=== PATIENT | male | born 1985 | race Caucasian/White ===

== ENCOUNTER 2024-12-24 20:14 | Emergency (ER) | payer BC, MEDICAID, SELFPAY ==
[2024-12-24 20:18] VITALS: BP 135/81; PULSE 117; RESP 16; TEMP 36.6; O2SAT 94; BMI 27.8
--- NOTE | 2024-12-24 20:51 | W.ED.ALCOHOL ---
HPI - Alcohol General: Chief Complaint: Nausea/Vomiting/Diarrhea Stated Complaint: n/v [facility] detox Time Seen by Provider: 12/24/24 20:42 History of Present Illness: This patient is a 39-year-old white male who presents to the emergency department wanting alcohol detox. Patient has been drinking today. His last drink was a couple of hours ago. He is not suicidal or homicidal. Evidently he is new to the community and was not sure where to go. Related Data Allergies Allergy/AdvReac Type Severity Reaction Status Date / Time azithromycin Allergy ADR-Chest Verified 12/24/24 20:24 Pain Review of Systems General: Reports: 10 or more systems reviewed and unremarkable except in HPI and below Physical Exam Const: COMMON NORMALS: no acute distress, patient oriented x3 and no limitations GENERAL APPEARANCE: cooperative and comfortable HENMT: COMMON NORMALS: normocephalic, atraumatic, Normal nasal mucous membranes and turbinates present, moist oral mucous membranes and oropharynx normal HEAD & SCALP: normal to inspection, normocephalic and atraumatic FACE & SINUS: normal facial exam NOSE: Normal nasal mucous membranes and turbinates present Eye: COMMON NORMALS: Equal, round and reactive pupils present, EOMs intact bilaterally and conjunctivae normal GENERAL EYE: appearance normal, both eyes and all related structures CONJUNCTIVA: Yes conjunctivae normal PUPIL: Yes Equal, round and reactive pupils present Neck/C-Spine: COMMON NORMALS: supple and no JVD Chest: COMMONS NORMALS: normal inspection of the chest Resp: COMMON NORMALS: normal respiratory effort and clear to auscultation bilaterally AUSCULTATION: clear to auscultation bilaterally Cardio: COMMON NORMALS: no JVD, regular rate, regular rhythm, No gallops present (Cardio), No murmurs present (Cardio) and No rub (Cardio) RATE: regular rate RHYTHM: regular rhythm GI: COMMON NORMALS: Normal to inspection, nondistended, normoactive bowel sounds present, Soft to palpation and non-tender AUSCULTATION: Yes normoactive bowel sounds PALPATION: Yes Soft to palpation : COMMON NORMALS: Yes no CVA tenderness BLADDER/KIDNEY EXAM: Yes no CVA tenderness Back/Pelvis: COMMON NORMALS: no CVA tenderness and thoracic and lumbar spine normal to inspection Extremity: COMMON NORMALS: normal to inspection Neuro: COMMON NORMALS: patient oriented x3 and CN's II-XII intact bilaterally Psych: COMMON NORMALS: mental status grossly normal, Normal thought process present and cooperative THOUGHT PROCESS: Normal thought process present Skin: COMMON NORMALS: no rashes or lesions noted, turgor normal and no jaundice GENERAL SKIN EXAM: no rashes or lesions noted and turgor normal Course Vital Signs: Vital signs: Vital Signs Temperature 97.8 F 12/24/24 20:18 Pulse Rate 117 H 12/24/24 20:18 Respiratory Rate 16 12/24/24 20:18 Blood Pressure 135/81 12/24/24 20:18 Pulse Oximetry 94 12/24/24 20:18 Oxygen Delivery Me thod Room Air 12/24/24 20:18 MDM - Alcohol Medical Decision Making Patient does not meet criteria for detox. He just had a drink 2 hours ago. He is not suicidal or homicidal so he does not need psychiatric care. We did refer him to [facility]. He can contact that organization tomorrow. He was discharged with friends in stable condition. No radiology studies performed this visit Discharge Plan Discharge Patient Disposition: Home Clinical Impression: Alcoholism Condition: Stable Discharge Orders: Discharge ED (Routine); Ordered 12/24/24 Ordered By: Danyel Clemente Patient Instructions: Alcoholism Activity Restrictions/Additional Instructions: Contact [facility] [phone] Print Language: Telugu Coding Level of Care Code ED Experimental Electronics Developer for Avi Gutierrez
[2024-12-24 20:56] VITALS: BP 133/87; PULSE 103; O2SAT 94
== END 2024-12-24 20:59 | disposition home or self-care (01) ==
PROVIDERS: Emergency Provider Emergency Medicine
DX: F10.20 Alcohol dependence, uncomplicated (principal)
CPT/HCPCS: 99281

== ENCOUNTER 2024-12-27 15:25 | Emergency (ER) | payer BC, MEDICAID, SELFPAY ==
[2024-12-27] VITALS (17 sets, daily range): BP systolic 112–141; BP diastolic 64–83; PULSE 98–112; RESP 16; TEMP 36.4; O2SAT 90–98; BMI 27.8
--- NOTE | 2024-12-27 15:40 | W.ED.ALCOHOL ---
HPI - Alcohol General: Chief Complaint: Alcohol Stated Complaint: ETOH Time Seen by Provider: 12/27/24 15:35 History of Present Illness: 39-year-old male brought in via EMS. Patient was staying at the [facility] where EMS was called because the manager case found him in his room with 5 750 mL empty bottles of vodka. Patient does not provide much information. He asked for some Ativan and was extent of his communication. Related Data Home Medications ?Medication ?Instructions ?Recorded ?Confirmed No Known Home Medications 12/27/24 12/27/24 Allergies Allergy/AdvReac Type Severity Reaction Status Date / Time azithromycin Allergy ADR-Chest Verified 12/24/24 20:24 Pain Review of Systems General: Reports: ROS unobtainable due to medical condition and ROS unobtainable due to mental status Physical Exam Const: GENERAL APPEARANCE: disheveled and odor of alcohol detected OTHER: Intoxication Resp: COMMON NORMALS: normal respiratory effort and clear to auscultation bilaterally AUSCULTATION: clear to auscultation bilaterally Cardio: COMMON NORMALS: regular rhythm RATE: tachycardic RHYTHM: regular rhythm Neuro: OTHER: Consistent with intoxication Psych: APPEARANCE: Yes unkempt and Yes disheveled SPEECH: Yes slurred Skin: COMMON NORMALS: no rashes or lesions noted GENERAL SKIN EXAM: no rashes or lesions noted Course Vital Signs: Vital signs: Vital Signs Temperature 97.5 F L 12/27/24 15:27 Pulse Rate 104 H 12/27/24 16:45 Respiratory Rate 16 12/27/24 15:27 Blood Pressure 130/72 12/27/24 17:30 Pulse Oximetry 94 12/27/24 17:35 Oxygen Delivery Me thod Room Air 12/27/24 16:25 MDM - Alcohol Medical Decision Making Patient diagnostics were reviewed. He does have extremely high alcohol level 390 however he admits to drinking a pint a day and I suspect his baseline is in the 200s. He is able to answer all questions appropriately. He will be discharged as requested. Lab Data 12/27/24 15:43 12/27/24 16:12 Laboratory Results WBC 8.20 10^3/uL (3.29-11.43) 12/27/24 15:43 RBC 5.82 10^6/uL (3.85-5.65) H 12/27/24 15:43 Hgb 17.70 g/dL (11.27-16.99) H 12/27/24 15:43 Hct 51.1 % (37-53) 12/27/24 15:43 MCV 87.8 fl (82-101) 12/27/24 15:43 MCH 30.4 pg (27-33) 12/27/24 15:43 MCHC 34.6 g/dL (30-55) 12/27/24 15:43 RDW 12.2 % (12.1-15.1) 12/27/24 15:43 Plt Count 260 10^3/cmm (157-399) 12/27/24 15:43 MPV 9.2 fL (7.4-10.4) 12/27/24 15:43 Neut % (Auto) 62.8 % 12/27/24 15:43 Lymph % (Auto) 30.1 % 12/27/24 15:43 Gonzales % (Auto) 5.5 % 12/27/24 15:43 Eos % (Auto) 0.1 % 12/27/24 15:43 Baso % (Auto) 1.3 % 12/27/24 15:43 Neut # (Auto) 5.14 10^3/uL (1.8-7.7) 12/27/24 15:43 Lymph # (Auto) 2.5 10^3/uL (0.8-4.8) 12/27/24 15:43 Gonzales # (Auto) 0.5 10^3/uL (0.2-0.9) 12/27/24 15:43 Eos # (Auto) 0.0 10^3/uL (0.0-0.8) 12/27/24 15:43 Baso # (Auto) 0.1 10^3/uL (0.0-0.1) 12/27/24 15:43 Nucleated RBC % (auto) 0 % 12/27/24 15:43 Nucleated RBCs # 0.0 /100WBC 12/27/24 15:43 Sodium 134 mmol/L (136-145) L 12/27/24 16:12 Potassium 4.0 mmol/L (3.5-5.1) 12/27/24 16:12 Chloride 92 mmol/L (98-107) L 12/27/24 16:12 Carbon Dioxide 22 mmol/L (22-29) 12/27/24 16:12 Anion Gap 24.0 (5-19) H 12/27/24 16:12 BUN 15 mg/dL (6-20) 12/27/24 16:12 Creatinine 0.6 mg/dL (0.7-1.2) L 12/27/24 16:12 GFR Calculation 151.6 mL/min (90-130) H 12/27/24 16:12 Glucose 90 mg/dL (65-115) 12/27/24 16:12 Calculated Osmolality 278 mOsm/kg (285-295) L 12/27/24 16:12 Calcium 7.9 mg/dL (8.5-10.5) L 12/27/24 16:12 Total Bilirubin 0.7 mg/dL (0.15-1.2) 12/27/24 16:12 AST 107 U/L (0-40) H 12/27/24 16:12 ALT 145 U/L (0-41) H 12/27/24 16:12 Alkaline Phosphatase 69 U/L (40-130) 12/27/24 16:12 Total Protein 6.2 g/dL (6.6-8.7) L 12/27/24 16:12 Albumin 4.2 g/dL (3.5-5.2) 12/27/24 16:12 Globulin 2.0 g/dL (1.3-4.6) 12/27/24 16:12 Urine Color Yellow (Yellow) 12/27/24 16:28 Urine Appearance Clear (CLEAR) 12/27/24 16:28 Urine pH 6.0 (5-7) 12/27/24 16:28 Ur Specific [place] 1.023 (1.005-1.030) 12/27/24 16:28 Urine Protein 2+ (Negative) A 12/27/24 16:28 Urine Glucose (UA) Negative (Normal) 12/27/24 16: Urine Ketones 3+ (Negative) H 12/27/24 16:28 Urine Blood 1+ (Negative) A 12/27/24 16:28 Urine Nitrate Negative (Negative) 12/27/24 16: Urine Bilirubin Negative (Negative) 12/27/24 16: Urine Urobilinogen 1.0 mg/dL (Negative) 12/27/24 16:28 Ur Leukocyte Esterase Negative (Negative) 12/27/24 16:28 Urine RBC 0-2 /hpf (0-2) 12/27/24 16:28 Urine WBC 0-5 /hpf (0-5) 12/27/24 16:28 Ur Squamous Epith Cells 0-5 /hpf (0-5) 12/27/24 16:28 Amorphous Sediment Not Reportable 12/27/24 16:28 Urine Bacteria None seen /hpf (NONE) 12/27/24 16:28 Hyaline Casts 0.81 /lpf 12/27/24 16:28 Salicylates < 0.3 mg/dL (3-10) L 12/27/24 16:12 Urine Opiates Screen Negative ng/mL (Negative) 12/27/24 16:28 Acetaminophen < 5.0 ug/mL (10-30) L 12/27/24 16:12 Ur Barbiturates Screen Negative ng/mL (Negative) 12/27/24 16:28 Ur Phencyclidine Scrn Negative ng/mL (Negative) 12/27/24 16:28 Ur Amphetamines Screen Negative ng/mL (Negative) 12/27/24 16:28 U Benzodiazepines Scrn Negative ng/mL (Negative) 12/27/24 16:28 Urine Cocaine Screen Negative ng/mL (Negative) 12/27/24 16:28 U Marijuana (THC) Screen Positive ng/mL (Negative) H 12/27/24 16:28 Ethyl Alcohol 390 mg/dL (0-10) H* 12/27/24 16:12 No radiology studies performed this visit Discharge Plan Discharge Patient Disposition: Home Clinical Impression: Alcoholism, Alcoholic intoxication Condition: Stable Prescriptions: No Action No Known Home Medications Discharge Orders: Discharge ED (Routine); Ordered 12/27/24 Ordered By: Akbar Castilol Patient Instructions: Alcohol Intoxication (ED), Alcohol Dependence (ED), Opioid Safety, Pain Management Activity Restrictions/Additional Instructions: Please follow-up with your primary care provider as needed. Please consider getting help if you decide you would like to stop drinking. Print Language: Swedish Coding Level of Care Code ED Manager [employer] for Avi Gutierrez
[2024-12-27] MEDS: sodium chloride 0.9% 1,000 ML 999 ML IV (15:46)
[2024-12-27 15:52] LABS: Basophils # 0.1 10^3/uL (0.0-0.1); Basophils % 1.3 %; Eosinophils % 0.1 %; Hematocrit 51.1 % (37-53); Lymphocytes # 2.5 10^3/uL (0.8-4.8); Lymphocytes % 30.1 %; Mean Corpuscular HGB Conc 34.6 g/dL (30-55); Mean Corpuscular Hemoglobin 30.4 pg (27-33); Mean Corpuscular Volume 87.8 fl (82-101); Mean Platelet Volume 9.2 fL (7.4-10.4); Monocytes # 0.5 10^3/uL (0.2-0.9); Monocytes % 5.5 %; Neutrophils # 5.14 10^3/uL (1.8-7.7); Neutrophils % 62.8 %; Nucleated Red Blood Cells % 0 %; Platelet Count 260 10^3/cmm (157-399); Red Blood Count 5.82 10^6/uL (3.85-5.65); Red Cell Distribution Width 12.2 % (12.1-15.1)
[2024-12-27 16:33] LABS: Alanine Aminotransferase 145 U/L (0-41); Albumin Level 4.2 g/dL (3.5-5.2); Alkaline Phosphatase 69 U/L (40-130); Aspartate Amino Transferase 107 U/L (0-40); Blood Urea Nitrogen 15 mg/dL (6-20); Calcium 7.9 mg/dL (8.5-10.5); Carbon Dioxide 22 mmol/L (22-29); Chloride 92 mmol/L (98-107); Creatinine Clr Calc Pharmacy 194.2389; Glomerular Filtration Rate 151.6 mL/min (90-130); Glucose 90 mg/dL (65-115); Osmolality Calculated 278 mOsm/kg (285-295); Sodium 134 mmol/L (136-145); Total Bilirubin 0.7 mg/dL (0.15-1.2); Total Protein 6.2 g/dL (6.6-8.7)
[2024-12-27 16:34] LABS: Acetaminophen < 5.0 ug/mL (10-30); Salicylate < 0.3 mg/dL (3-10)
[2024-12-27 16:35] LABS: Alcohol Level 390 mg/dL (0-10)
[2024-12-27 16:45] LABS: Bilirubin Urine Negative (Negative); Blood Urine 1+ (Negative); Glucose Urine UA Negative (Normal); Ketones Urine 3+ (Negative); Leukocyte Esterase Urine Negative (Negative); Nitrate Urine Negative (Negative); Protein Urine 2+ (Negative); Specific Gravity, Urine 1.023 (1.005-1.030); Urine Appearance Clear (CLEAR); Urine Color Yellow (Yellow)
[2024-12-27 16:50] LABS: Add Urine Microscopic? YES; Bacteria Urine None Seen /hpf; Hyaline Casts Urine 0.81 /lpf; RBC Urine 0-2 /hpf (0-2); Squamous Epithelial Cell Urine 0-5 /hpf (0-5); WBC Urine 0-5 /hpf (0-5)
[2024-12-27 16:51] LABS: Amphetamines Screen Urine Negative (Negative); Barbiturates Screen Urine Negative (Negative); Benzodiazepines Screen Urine Negative (Negative); Cocaine Screen Urine Negative (Negative); Opiate Screen Urine Negative (Negative); PCP Screen Urine Negative (Negative); THC Screen Urine Positive (Negative)
== END 2024-12-27 17:56 | disposition home or self-care (01) ==
PROVIDERS: Emergency Provider Student in an Organized Health Care Education/Training Program
DX: F10.229 Alcohol dependence with intoxication, unspecified (principal); Y90.8 Blood alcohol level of 240 mg/100 ml or more
CPT/HCPCS: 36415; 80053; 80306; 80307; 81001; 85025; 99283; J7030

== ENCOUNTER 2024-12-31 16:18 | Inpatient (IN) | payer BC, MEDICAID, SELFPAY ==
[2024-12-31] VITALS (28 sets, daily range): BP systolic 112–150; BP diastolic 60–112; PULSE 86–121; RESP 14–25; TEMP 36.6–36.7; O2SAT 91–99; BMI 25.1
--- NOTE | 2024-12-31 16:23 | ECG_ITS ---
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 Measurements Intervals [place] Rate: 114 P: 52 SC: 154 QRS: 49 QRSD: 96 T: 48 QT: 333 QTc: 460 Interpretive Statements SINUS TACHYCARDIA NONSPECIFIC T-WAVE ABNORMALITY No previous ECG available for comparison Electronically Signed On 01-01-2025 14:51:25 CDT by Jason Leiva M.D. [email or web address]
[2024-12-31 16:34] LABS: Basophils # 0.1 10^3/uL (0.0-0.1); Basophils % 0.8 %; Eosinophils % 0.5 %; Hematocrit 48.4 % (37-53); Lymphocytes # 1.8 10^3/uL (0.8-4.8); Mean Corpuscular HGB Conc 35.3 g/dL (30-55); Mean Corpuscular Hemoglobin 30.4 pg (27-33); Mean Platelet Volume 9.1 fL (7.4-10.4); Monocytes # 0.5 10^3/uL (0.2-0.9); Neutrophils # 5.99 10^3/uL (1.8-7.7); Neutrophils % 71.5 %; Nucleated Red Blood Cells % 0 %; Platelet Count 150 10^3/cmm (157-399); Red Blood Count 5.63 10^6/uL (3.85-5.65); White Blood Count 8.38 10^3/uL (3.29-11.43)
--- NOTE | 2024-12-31 16:42 | W.ED.PSYCHS ---
HPI - Psych General: Chief Complaint: Overdose Stated Complaint: SI attempt Time Seen by Provider: 12/31/24 16:23 History of Present Illness: 39-year-old man with a history of alcohol abuse who presents to the emergency room by ambulance after reportedly taking an overdose of thirty 10 mg propranolol and alcohol. He appears quite intoxicated on presentation. Apparently he is in a hotel here. He is from [place]. He says he just wants to when he gets here. Related Data Home Medications ?Medication ?Instructions ?Recorded ?Confirmed No Known Home Medications 12/27/24 12/27/24 Allergies Allergy/AdvReac Type Severity Reaction Status Date / Time azithromycin Allergy ADR-Chest Verified 12/24/24 20:24 Pain Review of Systems General: Reports: ROS unobtainable due to medical condition and ROS unobtainable due to mental status Physical Exam Narrative: EXAM NARRATIVE: General: Somnolent but arousable Skin: Warm, dry. Head: Normocephalic, atraumatic. Neck: Supple, trachea midline. Eye: Extraocular movements are intact. Ears, nose, mouth and throat: mucosa moist. Cardiovascular: Regular, Normal peripheral perfusion. Respiratory: Lungs are clear to auscultation, respirations are non-labored, breath sounds are equal, Symmetrical chest wall expansion. Gastrointestinal: Soft, Nontender, Non distended Musculoskeletal: Normal ROM, no deformity. Neurological: Somnolent, No focal neurological deficit observed. Psychiatric: Appears intoxicated Course Vital Signs: Vital signs: Vital Signs Temperature 98.1 F 12/31/24 16:37 Pulse Rate 115 H 12/31/24 16:37 Respiratory Rate 20 H 12/31/24 16:37 Blood Pressure 132/98 12/31/24 16:37 Pulse Oximetry 97 12/31/24 16:37 Oxygen Delivery Me thod Room Air 12/31/24 16:37 MDM - Psych Medical Decision Making Differential diagnosis: Patient with reported depression and suicidal ideation. concerns for infection, alcohol intoxication, cardiac issues or other medical problems prior to psychiatric admission. Workup: labwork, ekg ordered to evaluate the pathologies and to clear the patient medically prior to psychiatric admission Lab Review: Laboratory results were reviewed and interpreted by myself the emergency room physician. No leukocytosis. Hemoglobin is 17. BUN/creatinine are 14 and 0.8. Blood alcohol level is 409. Liver enzymes are mildly elevated at 157 and 201. Likely secondary to his alcohol abuse. ABG 7.6 with a sat of 98% on room air. Consultation: I spoke with Dr. Salazar who is on-call for the hospitalist service who agrees to admission to the ICU. Assessment and plan: Intentional overdose of propranolol Alcohol abuse Alcohol intoxication Suicidal ideation -Admission to neuropsychiatric unit for continued evaluation and treatment. - All lab work was reviewed and interpreted personally by myself, the ER physician - Evaluation and treatment of this problem were appropriate in the emergency setting Lab Data 12/31/24 16:00 12/31/24 16:00 Laboratory Results WBC 8.38 10^3/uL (3.29-11.43) 12/31/24 16:00 RBC 5.63 10^6/uL (3.85-5.65) 12/31/24 16:00 Hgb 17.10 g/dL (11.27-16.99) H 12/31/24 16:00 Hct 48.4 % (37-53) 12/31/24 16:00 MCV 86.0 fl (82-101) 12/31/24 16:00 MCH 30.4 pg (27-33) 12/31/24 16:00 MCHC 35.3 g/dL (30-55) 12/31/24 16:00 RDW 12.0 % (12.1-15.1) L 12/31/24 16:00 Plt Count 150 10^3/cmm (157-399) L 12/31/24 16:00 MPV 9.1 fL (7.4-10.4) 12/31/24 16:00 Neut % (Auto) 71.5 % 12/31/24 16:00 Lymph % (Auto) 21.0 % 12/31/24 16:00 Granite % (Auto) 6.0 % 12/31/24 16:00 Eos % (Auto) 0.5 % 12/31/24 16:00 Baso % (Auto) 0.8 % 12/31/24 16:00 Neut # (Auto) 5.99 10^3/uL (1.8-7.7) 12/31/24 16:00 Lymph # (Auto) 1.8 10^3/uL (0.8-4.8) 12/31/24 16:00 Granite # (Auto) 0.5 10^3/uL (0.2-0.9) 12/31/24 16:00 Eos # (Auto) 0.0 10^3/uL (0.0-0.8) 12/31/24 16:00 Baso # (Auto) 0.1 10^3/uL (0.0-0.1) 12/31/24 16:00 Nucleated RBC % (auto) 0 % 12/31/24 16:00 Nucleated RBCs # 0.0 /100WBC 12/31/24 16:00 Specimen Type Arterial 12/31/24 16:46 Sample Site Radial, left 12/31/24 16:46 ABG pH 7.61 (7.35-7.45) H* 12/31/24 16:46 ABG pCO2 28.3 mmHg (35-45) L 12/31/24 16:46 ABG pO2 104.0 mmHg (80.0-100.0) H 12/31/24 16:46 ABG PO2/FiO2 Ratio 495 12/31/24 16:46 ABG HCO3 28.3 mmol/L (22-26) H 12/31/24 16:46 ABG O2 Saturation 99.2 12/31/24 16:46 ABG Base Excess 7.8 mmol/L (-2.0-2.0) H 12/31/24 16:46 Sunny Test Pos 12/31/24 16:46 A-a O2 Gradient 1.1 mmHg (5-10) L 12/31/24 16:46 Hematocrit 52.4 % (42-52) H 12/31/24 16:46 Hgb O2 Saturation 98.1 % (95-100) 12/31/24 16:46 Carboxyhemoglobin 1.0 %THgb (0.4-20.1) 12/31/24 16:46 Methemoglobin 0.2 % (0.4-1.5) L 12/31/24 16:46 Total Hemoglobin 17.1 g/dL (14-18) 12/31/24 16:46 Sodium 136.0 mmol/L (131-143) 12/31/24 16:46 Potassium 3.5 mmol/L (3.5-5.0) 12/31/24 16:46 Glucose 240.0 mg/dL (70-115) H 12/31/24 16:46 Ionized Calcium 0.9 mmol/L (1.1-1.4) L 12/31/24 16:46 O2 Delivery Device Room air 12/31/24 16:46 FiO2 21.0 % 12/31/24 16:46 Commercial Finance Analyst ID [id number] 12/31/24 16:46 Sodium 134 mmol/L (136-145) L 12/31/24 16:00 Potassium 3.6 mmol/L (3.5-5.1) 12/31/24 16:00 Chloride 87 mmol/L (98-107) L 12/31/24 16:00 Carbon Dioxide 26 mmol/L (22-29) 12/31/24 16:00 Anion Gap 24.6 (5-19) H 12/31/24 16:00 BUN 14 mg/dL (6-20) 12/31/24 16:00 Creatinine 0.8 mg/dL (0.7-1.2) 12/31/24 16:00 GFR Calculation 108.8 mL/min (90-130) 12/31/24 16:00 Glucose 281 mg/dL (65-115) H 12/31/24 16:00 Calculated Osmolality 289 mOsm/kg (285-295) 12/31/24 16:00 Calcium 8.5 mg/dL (8.5-10.5) 12/31/24 16:00 Total Bilirubin 0.9 mg/dL (0.15-1.2) 12/31/24 16:00 AST 157 U/L (0-40) H 12/31/24 16:00 ALT 201 U/L (0-41) H 12/31/24 16:00 Alkaline Phosphatase 67 U/L (40-130) 12/31/24 16:00 Total Protein 7.9 g/dL (6.6-8.7) 12/31/24 16:00 Albumin 4.7 g/dL (3.5-5.2) 12/31/24 16:00 Globulin 3.2 g/dL (1.3-4.6) 12/31/24 16:00 TSH 0.74 uIU/mL (0.27-4.20) 12/31/24 16:00 Salicylates < 0.3 mg/dL (3-10) L 12/31/24 16:00 Acetaminophen < 5.0 ug/mL (10-30) L 12/31/24 16:00 Ethyl Alcohol 409 mg/dL (0-10) H* 12/31/24 16:00 No radiology studies performed this visit Discharge Plan Discharge Patient Disposition: Admitted As Inpatient Clinical Impression: Intentional overdose, Alcohol intoxication, Alcohol abuse, Suicidal ideation Condition: Stable Coding Level of Care Code ED Learning And Development Analyst for Avi Gutierrez
--- NOTE | 2024-12-31 16:51 | PC.NURSE ---
96 hour hold rights read and reviewed with patient. Madhavi CRUZ present during reading of rights. Patient verbalized understandings and copy of rights given to patient.
[2024-12-31 16:58] LABS: ABG PCO2 28.3 mmHg (35-45); Alveolar-Arterial Oxygen Gradi 1.1 mmHg (5-10); Arterial Blood Gas Hematocrit 52.4 % (42-52); Base Excess ABG 7.8 mmol/L (-2.0-2.0); Blood Gas Allen Test Pos; Blood Gas Operator Identificat glc; Blood Gas Sample Site Radial, left; Blood Gas Sample Type Arterial; HCO3 ABG 28.3 mmol/L (22-26); HGB O2 Sat 98.1 % (95-100); Ionized Calcium Level - ABG 0.9 mmol/L (1.1-1.4); Methemoglobin 0.2 % (0.4-1.5); Oxygen Device ROOM AIR; Oxygen Saturation ABG 99.2; PO2 FiO2 Ratio Arterial Blood 495; Potassium Level - ABG 3.5 mmol/L (3.5-5.0); Total Hemoglobin 17.1 g/dL (14-18)
[2024-12-31 17:01] LABS: ABG PH Result 7.61 (7.35-7.45)
[2024-12-31 17:07] LABS: Alanine Aminotransferase 201 U/L (0-41); Albumin Level 4.7 g/dL (3.5-5.2); Alkaline Phosphatase 67 U/L (40-130); Anion Gap 24.6 (5-19); Aspartate Amino Transferase 157 U/L (0-40); Blood Urea Nitrogen 14 mg/dL (6-20); Calcium 8.5 mg/dL (8.5-10.5); Carbon Dioxide 26 mmol/L (22-29); Chloride 87 mmol/L (98-107); Globulin 3.2 g/dL (1.3-4.6); Glomerular Filtration Rate 108.8 mL/min (90-130); Glucose 281 mg/dL (65-115); Osmolality Calculated 289 mOsm/kg (285-295); Potassium 3.6 mmol/L (3.5-5.1); Sodium 134 mmol/L (136-145); Thyroid Stimulating Hormone 0.74 uIU/mL (0.27-4.20); Total Bilirubin 0.9 mg/dL (0.15-1.2); Total Protein 7.9 g/dL (6.6-8.7)
[2024-12-31 17:14] LABS: Acetaminophen < 5.0 ug/mL (10-30); Alcohol Level 409 mg/dL (0-10); Salicylate < 0.3 mg/dL (3-10)
[2024-12-31] MEDS: sodium chloride 0.9% 1,000 ML 999 ML IV (17:21)
--- NOTE | 2024-12-31 17:37 | CTR_ITS ---
PROCEDURE INFORMATION: Exam: CT Abdomen And Pelvis With Contrast Exam date and time: 12/31/2024 5:59 PM Age: 39 years old Clinical indication: Nausea and vomiting; Additional info: N/v TECHNIQUE: Imaging protocol: Computed tomography of the abdomen and pelvis with contrast. Radiation optimization: All CT scans at this facility use at least one of these dose optimization techniques: automated exposure control; mA and/or kV adjustment per patient size (includes targeted exams where dose is matched to clinical indication); or iterative reconstruction. Contrast material: OMNIPAQUE 350; Contrast volume: 100 ml; Contrast route: INTRAVENOUS (IV); COMPARISON: No relevant prior studies available. RADIATION DOSE METRICS: Total DLP (mGy-cm): 524.27 FINDINGS: Lungs: Calcified granuloma in the lingula measuring up to 15 mm (series 3, image 3). Liver: The liver is diffusely low in attenuation consistent with hepatic steatosis. Gallbladder and biliary ducts: Normal. No calcified stones. No ductal dilation. Pancreas: Normal. No ductal dilation. Spleen: Normal. No splenomegaly. Adrenal glands: Normal. No mass. Kidneys and ureters: Normal. No hydronephrosis. Stomach and bowel: Unremarkable. No obstruction. No mucosal thickening. Appendix: No evidence of appendicitis. Intraperitoneal space: Unremarkable. No free air. No significant fluid collection. Vasculature: Unremarkable. No abdominal aortic aneurysm. Lymph nodes: Unremarkable. No enlarged lymph nodes. Urinary bladder: Unremarkable as visualized. Reproductive: Unremarkable as visualized. Bones/joints: Unremarkable. No acute fracture. Soft tissues: Unremarkable. CT/CT abdomen pelvis w con* [id number] IMPRESSION: 1. No bowel obstruction or inflammatory process associated with the bowel. 2. No free air or significant free fluid in the abdomen or pelvis. 3. No evidence of appendicitis. 4. Hepatic steatosis.
--- NOTE | 2024-12-31 17:43 | P.HP_ITS ---
Providers/Chief Complaint 2 Chief Complaint: SI attempt History of Present Illness Isidro Hernandez is a 39 year old male with past medical history of possible traumatic brain injury, alcohol use, alcohol withdrawal seizures complicated by mechanical ventilation presents to the ER today for the third day from a hotel locally for alcohol intoxication. As per the ER physician patient was brought today with concerns for suicidal ideation. Patient states he consumes alcohol to prevent him from going into seizures. Today he took at least 15 tablets of 10 mg of propranolol with intentions to kill himself. 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 States he has been having frequent episodes of vomiting with 2 episodes of vomiting in the ER. Denies any headache but does complain of jitteriness, tiredness. In the ER he was found to have be tachycardic with heart rate 115, saturating well on room air, lactate of 6.2, blood alcohol level of 409. Review of Systems 2 General: Reports: 10 or more systems reviewed and unremarkable except in HPI and below Const: Denies: fever(s), chills, body aches, change in appetite, change in weight, malaise, night sweats, diaphoresis, change in sleep pattern, daytime sleepiness or snoring Eyes: Denies: change in vision, blurry vision, photophobia, eye discomfort or eye discharge ENMT: Denies: throat pain, enlarged tonsils, hoarseness, mouth pain, oral sores, dry mouth, tinnitus, nasal congestion or post nasal drip Card: Denies: chest pain, palpitations, irregular heart rhythm, edema, swelling of feet/ankles, lightheadedness, syncope, pre-syncope, dyspnea on exertion, orthopnea, leg pain with exertion or acrocyanosis Resp: Denies: dyspnea, productive cough, non-productive cough, wheezing, stridor, pain on inspiration, change in phlegm color, hemoptysis or chest congestion GI: Denies: abdominal pain, nausea, vomiting, hematemesis, coffee ground emesis, dysphagia, heartburn, diarrhea, constipation, bloating, GI cramping, change in bowel habits, pain on defecation, hematochezia or melena : Denies: flank pain, difficulty urinating, dysuria, urinary frequency, urinary urgency, urinary hesitancy, urinary dribbling, difficulty starting urination, change in urine stream, nocturia or hematuria Musc: Denies: neck pain, back pain, extremity pain, joint pain, joint swelling, joint redness, joint stiffness or limited range of motion Neuro: Denies: headache(s), numbness in extremities, weakness in extremities, sensory changes, lack of coordination, difficulty walking, frequent falls, dizziness, vertigo, confusion, Slurred speech present, difficulty communicating thoughts or seizure-like activity Psych: Denies: anxiety, depression, mood swings, panic attacks, hopelessness or irritability Endo: Denies: polyuria, polydipsia, tired all the time, cold intolerance, excessive sweating, flushing or heat intolerance Tod/Lymph: Denies: easy bruising or easy bleeding All/Imm: Denies: tongue swelling, facial swelling or acute wheezing Medications/Allergies Home Medications ?Medication ?Instructions ?Recorded ?Confirmed ?Last Taken ?Type No Known Home Medications 12/27/2403/15 Unknown History Allergies Allergy/AdvReac Type Severity Reaction Status Date / Time azithromycin Allergy ADR-Chest Verified 12/24/24 20:24 Pain PFSH Acute 2 PFSH: Medical History (Updated 12/31/24 @ 18:22 by Lamberto Salazar MD) Traumatic brain injury Alcohol abuse Alcohol withdrawal seizure with complication Hypertension Alcoholism Social History (Updated 12/31/24 @ 18:20 by Lamberto Salazar MD) Smoking and tobacco/nicotine status: former use of tobacco/nicotine Alcohol intake: current Substance/Drug Use: unknown Caregiver/support person: Yes Household members: family Housing: House Vitals/I&O/Wt Last Vital Signs Temp 98.1 F 12/31/24 16:37 Pulse 115 H 12/31/24 16:37 Resp 20 H 12/31/24 16:37 BP 132/98 12/31/24 16:37 Pulse Ox 97 12/31/24 16:37 O2 Del Method Room Air 12/31/24 16:37 Physical Exam 2 Narrative: General: No acute distress, AO x3, anxious, tremulous HEENT: PERRLA, pupils bilaterally equal and reactive Chest: Normal vesicular breath sounds, no added sounds, equal good air entry bilaterally CVS: S1-S2 regular, no murmurs, no tachycardia, no gallops, no rubs Abdomen: Soft, nontender, no organomegaly, bowel sounds present Neuro: No focal deficits, no facial deformity, AO x3, power 5/5 in all limbs Const: COMMON NORMALS: no acute distress and patient oriented x3 EXAM LIMITATIONS: behavioral limitations ORIENTATION/CONSCIOUSNESS: Yes awake, Yes oriented to person, Yes oriented to place and Yes oriented to time Psych: COMMON NORMALS: cooperative; negative for speech normal APPEARANCE: Yes unkempt and Yes disheveled A TTITUDE: Yes agitated ACTIVITY/MOTOR BEHAVIOR: No appropriate eye contact, Yes fidgeting and Yes restless SPEECH: Yes slow, Yes delayed and Yes Pressured speech present MOOD & AFFECT: Yes anxious and Yes fearful M VANESSA/COGNITION: Yes memory grossly intact JUDGEMENT: Limited judgement present (Psych) Data 12/31/24 16:00 12/31/24 16:00 A&P Assessment and plan (1) Suicidal ideation: 96-hour hold paperwork done in the ER. Psych consulted. Sitter. Will transfer to Neuropsych Unit once medically cleared. Will try to get medical reconciliation from patient's outpatient pharmacy in AM tomorrow. Plan to start medications after reconciliation. (2) Intentional overdose: Patient states he took 10 tablets of 30 mg propranolol. Overall 300 mg. Monitor for respiratory depression, hypotension, arrhythmias. Monitor for cerebral hypoperfusion. Telemetry. Hypoglycemia protocol. DuoNeb as needed. Monitor QTc. Repeat EKG in AM. Monitor electrolytes, calcium level. Appreciate Tylenol level, check urine drug screen, salicylate level, lactic acid, digoxin level Atropine 0.5 mg if patient becomes bradycardic IV fluid at 75 cc/h after banana bag. If QRS prolongation we will plan for sodium bicarbonate and magnesium. Seizure precautions. (3) Alcohol withdrawal: Patient gives history of frequent alcohol withdrawals complicated by seizures in the past requiring mechanical ventilation on previous hospitalization. States he tends to go into withdrawals even when his alcohol levels are high. States usually he needs phenobarbital to help him with alcohol withdrawals. For now we will start him on CIWA protocol Ativan. Phenobarbital 300 mg IV every 3 hours for 3 doses for loading. Will start for taper tomorrow morning. (4) Alcoholic intoxication: CIWA protocol. Banana bag. Precedex as needed. (5) Alcohol abuse: (6) Hypertension: Goal blood pressure less than 140/90 mmHg. Hydralazine 10 mg every 4 hours as needed for systolic blood pressure more than 160 mmHg. Will confirm doses of medication tomorrow morning with pharmacy and start antihypertensive accordingly. Plan N.p.o. Protonix for PUD prophylaxis Heparin 5000 every 12 hourly for DVT prophylaxis PDMP PDMP Reviewed: Last Reviewed 12/31/24 17:50 by Lamberto Salazar MD Attestations 2 Medical Necessity Statement*: Admission for more than 2 midnights for management of suicidal ideation, intentional drug overdose with propranolol, alcohol intoxication, 96-hour hold Critical Care Time: The high probability of a clinically significant, sudden or life threatening deterioration of the patient's [cardiac, renal, psych] system(s) required my full and direct attention, intervention and personal management. The critical care time is as shown. This time is in addition to time spent performing any reported procedures but includes the following: [x] Data and vital sign review and interpretation [x] Patient assessment, examination and intervention [x] Documentation [x] Medication orders and management Critical Care Time (min): 80 Coding Level of Care Code Critical Care >/= 30 minutes Critical care time (in minutes): 80 The high probability of a clinically significant, sudden or life threatening deterioration, as referenced in this documentation, required my full and direct attention, intervention and personal management. The critical care time shown is in addition to time spent performing any reported separately billable procedures and includes the following: [x] Data and vital sign review and interpretation [x ] Patient assessment, examination and intervention [x] Medication orders and management [x] Patient/Family updates as able [x] Care Coordination and Documentation. Other Coding Information This patient has a high probability of clinically significant, sudden or life threatening deterioration of the patient's (neurological/pulmonary/cardiac/renal/ID/endocrine) systems required my full, direct attention, the highest level of physician preparedness for urgent intervention and personal management. I managed/supervised life or organ supporting interventions that required frequent physician assessment. I devoted my full attention in the ICU to the direct care of this patient for the period of time indicated above. Time I spent with family or surrogate(s) is included only if the patient was incapable of providing necessary information or participating in decision making. This time includes the following services provided: Telemetry review Hemodynamic interpretation, assessment and management Review and interpretation of CXR Review and interpretation of lab values Review and interpretation of microbiologic data and culture results Review of medications and administration Review and interpretation of Nutrition requirements and management Discussion of management with other consultants and services Clinical update to family members Diagnoses Suicidal ideation R45.851 Intentional overdose T50.902A Alcohol withdrawal F10.939 Alcoholic intoxication F10.929 Alcohol abuse F10.10 Hypertension I10
[2024-12-31] MEDS: iohexol 350 mg/mL 500 mL Btl (per mL) IV (18:04)
[2024-12-31 18:15] LABS: INR 0.88 (0.8-1.2)
[2024-12-31] MEDS: ondansetron 2 mg/ML SDV 2 mL 8 MG IVP (18:26)
[2024-12-31] MEDS: pantoprazole 40 mg SDV 80 MG IVP (18:26)
[2024-12-31 18:27] LABS: Lactic Sepsis W/Reflex 6.2 mmol/L (0.5-2.2)
[2024-12-31] MEDS: LORazepam 1 MG/0.5 ML injection 2 MG IVP ×3 (18:27→22:57)
[2024-12-31] MEDS: folic acid 1 MG, multivitamin inj 10 ML, thiamine 100 MG in sodium chloride 0.9% 1,000 ML 252.8 MG IV (18:34)
[2024-12-31] MEDS: dextrose 5%-sod chloride 0.9% 1,000 ML 75 ML IV (18:34)
[2024-12-31 18:38] LABS: Procalcitonin 0.11 ng/mL (0-0.5)
[2024-12-31 18:39] LABS: Iron 129 ug/dL (59-158); Total Iron Binding Capacity 258 mcg/dl; Unsaturated Iron Binding 129 ug/dL (112-347)
[2024-12-31 18:42] LABS: Gastricult Occult Blood Positive (Negative)
--- NOTE | 2024-12-31 19:19 | USCV_ITS ---
Isidro Hernandez Age: 39 Gender: M : 1985 Exam Date: 12/31/2024 22:18 Ordering Phys: Lamberto Salazar MD Technologist: DWIGHT [place]am Location[place] [facility] [place]: proponalol toxicity, alcoholic, neuro-psych admit BP: 132 / 98 HR: 105 Rhythm: Sinus Technical Quality: Adequate MEASUREMENTS (Male / Female) Normal Values 2D ECHO LV Diastolic Diameter PLAX 3.8 cm 4.2 - 5.9 / 3.9 - 5.3 cm IVS Diastolic Thickness 1.2 cm 0.6 - 1.0 / 0.6 - 0.9 cm IVS Systolic Thickness 2.0 cm LVPW Diastolic Thickness 1.6 cm 0.6 - 1.0 / 0.6 - 0.9 cm LVPW Systolic Thickness 1.8 cm LVOT Diameter 2.3 cm LV Ejection Fraction 2D Teich 61.2 % LV Ejection Fraction MOD 4C 59.7 % LV Ejection Fraction MOD 2C 53.0 % LV Ejection Fraction 2C AL 52.6 % LA Diameter 2.2 cm Aorta at Sinotubular Diameter 2.7 cm IVC Diameter 0.8 cm M-MODE LA Ao Ratio MM 0.9 AV Cusp Separation MM 2.1 cm DOPPLER AV Peak Velocity 156.0 cm/s LVOT Peak Velocity 136.0 cm/s AV Area Cont Eq vti 3.2 cm squared AV Area Cont Eq pk 3.6 cm squared MV Peak Velocity 108.0 cm/s MV Area PHT 5.8 cm squared Mitral E to A Ratio 0.9 TV Peak E Velocity 54.0 cm/s PV Peak Velocity 130.0 cm/s FINDINGS Left Ventricle Left ventricle is normal in size. LV systolic function is normal with EF of 55-60%. No regional wall motion abnormalities are seen. Right Ventricle Normal in size and function Right Atrium Normal in size Left Atrium Normal in size Mitral Valve Structurally normal mitral valve. Aortic Valve Structurally normal aortic valve. No significant stenosis or regurgitation Tricuspid Valve Mild tricuspid regurgitation. Insufficient TR jet to evaluate RVSP. Pulmonic Valve Not well visualized Pericardium Not well visualized Aorta Normal IVC Normal in size CONCLUSIONS LV systolic function is normal with EF of 55-60% Mild tricuspid regurgitation. Jason Leiva MD (Electronically Signed) Final Date: 01 January 2025 11:13 S
--- NOTE | 2024-12-31 19:35 | PC.NURSE ---
this nurse took over patient care @1900.
[2024-12-31] MEDS: PHENobarbital 130 mg/mL SDV 1 mL 300 MG IVP ×2 (19:39→23:15)
[2024-12-31 19:43] LABS: Estmated Average Glucose 108; Hemoglobin A1C 5.4 % (4.0-6.0)
[2024-12-31 19:46] LABS: Reflex Lactate Order REFLEX LACTIC ORDERD
[2024-12-31 19:50] LABS: Digoxin 0.4 ng/mL (0.6-1.2)
[2024-12-31] MEDS: heparin 5,000 unit/mL INJ 1 mL 5000 UNIT SUBCUT (19:54)
[2024-12-31] MEDS: thiamine 100 mg/mL 2mL SDV IM (19:54)
[2024-12-31] MEDS: docusate sodium 100 mg Capsule PO (19:54)
[2024-12-31 20:06] LABS: Vitamin B12 1258 pg/mL (232-1245)
[2024-12-31 20:20] LABS: Lactic Acid level (Lactate) 3.8 mmol/L (0.5-2.2)
[2024-12-31 20:37] LABS: Bilirubin Urine Negative (Negative); Blood Urine Trace (Negative); Glucose Urine UA Trace (Normal); Ketones Urine 1+ (Negative); Leukocyte Esterase Urine Negative (Negative); Nitrate Urine Negative (Negative); Protein Urine 1+ (Negative); Urine Appearance Clear (CLEAR); Urine Color Yellow (Yellow)
[2024-12-31 20:42] LABS: Add Urine Microscopic? YES; Bacteria Urine None Seen /hpf; Hyaline Casts Urine 0-4 /lpf; RBC Urine 0-2 /hpf (0-2); Squamous Epithelial Cell Urine 0-5 /hpf (0-5); WBC Urine 0-5 /hpf (0-5)
[2024-12-31 20:44] LABS: Amphetamines Screen Urine Negative (Negative); Barbiturates Screen Urine Negative (Negative); Benzodiazepines Screen Urine Negative (Negative); Cocaine Screen Urine Negative (Negative); Opiate Screen Urine Negative (Negative); PCP Screen Urine Negative (Negative); THC Screen Urine Negative (Negative)
[2024-12-31 20:52] LABS: Specific Gravity, Urine 1.037 (1.005-1.030)
[2024-12-31 20:53] LABS: Add Urine Culture? No
--- NOTE | 2024-12-31 20:57 | PC.NURSE ---
Poison Control: This nurse called and spoke to Edita from poison control and informed her of the situation, no new recommendations aside from continuous monitoring and ongoing assessment of patient condition.
[2024-12-31 21:21] LABS: Glucose Point of Care 124 mg/dL (70-110)
--- NOTE | 2024-12-31 23:00 | PC.NURSE ---
House: Patient attempted to void in urinal but was disoriented and missed, patient's heart rate also increased to the 160s during this attempt. Dr. Etienne gave telephone orders to insert a house catheter.
[2025-01-01] VITALS (85 sets, daily range): BP systolic 102–151; BP diastolic 59–109; PULSE 65–155; RESP 1–21; TEMP 36.2–36.8; O2SAT 80–100; BMI 25.6
[2025-01-01] MEDS: PHENobarbital 130 mg/mL SDV 1 mL 300 MG IVP (01:51)
[2025-01-01] MEDS: LORazepam 1 MG/0.5 ML injection 2 MG IVP ×4 (03:26→19:08)
[2025-01-01 04:33] LABS: Basophils # 0.1 10^3/uL (0.0-0.1); Basophils % 0.8 %; Eosinophils # 0.1 10^3/uL (0.0-0.8); Hematocrit 44.6 % (37-53); Lymphocytes # 2.3 10^3/uL (0.8-4.8); Lymphocytes % 26.8 %; Mean Corpuscular HGB Conc 34.8 g/dL (30-55); Mean Corpuscular Hemoglobin 30.2 pg (27-33); Mean Corpuscular Volume 86.9 fl (82-101); Mean Platelet Volume 8.9 fL (7.4-10.4); Monocytes # 0.9 10^3/uL (0.2-0.9); Neutrophils # 5.34 10^3/uL (1.8-7.7); Neutrophils % 61.3 %; Nucleated Red Blood Cells % 0 %; Platelet Count 117 10^3/cmm (157-399); Red Blood Count 5.13 10^6/uL (3.85-5.65); Red Cell Distribution Width 12.2 % (12.1-15.1); White Blood Count 8.72 10^3/uL (3.29-11.43)
[2025-01-01] MEDS: pantoprazole 40 mg SDV IVP ×2 (04:50→18:06)
[2025-01-01 04:52] LABS: Chol HDL Ratio 1.82 mg/dL (1.0-5.00); Cholesterol 162 mg/dL (0-200); HDL Cholesterol 89 mg/dL (60-100); LDL Cholesterol Calculated 65 mg/dL (50-129); LDL HDL Ratio 0.73 RATIO (0.00-3.22); Triglycerides 40 mg/dL (0-150)
[2025-01-01 04:53] LABS: Alanine Aminotransferase 178 U/L (0-41); Albumin Level 4.1 g/dL (3.5-5.2); Alkaline Phosphatase 55 U/L (40-130); Anion Gap 16.2 (5-19); Aspartate Amino Transferase 133 U/L (0-40); Blood Urea Nitrogen 11 mg/dL (6-20); Calcium 7.5 mg/dL (8.5-10.5); Carbon Dioxide 28 mmol/L (22-29); Chloride 93 mmol/L (98-107); Creatinine Clr Calc Pharmacy 159.1865; Globulin 2.8 g/dL (1.3-4.6); Glomerular Filtration Rate 126.9 mL/min (90-130); Glucose 112 mg/dL (65-115); Osmolality Calculated 278 mOsm/kg (285-295); Phosphorus 2.9 mg/dL (2.5-4.5); Potassium 3.2 mmol/L (3.5-5.1); Sodium 134 mmol/L (136-145); Total Bilirubin 1.3 mg/dL (0.15-1.2); Total Protein 6.9 g/dL (6.6-8.7)
[2025-01-01 04:58] LABS: Procalcitonin 0.12 ng/mL (0-0.5)
[2025-01-01 05:58] LABS: Folate Level > 20.0 ng/mL (4.5-32.2)
[2025-01-01] MEDS: ondansetron 2 mg/ML SDV 2 mL 4 MG IVP ×2 (08:42→22:24)
[2025-01-01] MEDS: dextrose 5%-sod chloride 0.9% 1,000 ML 75 ML IV ×2 (08:47→22:49)
[2025-01-01] MEDS: heparin 5,000 unit/mL INJ 1 mL 5000 UNIT SUBCUT ×2 (08:48→18:06)
[2025-01-01] MEDS: multivitamin therapeutic Tablet 1 TAB PO (08:51)
[2025-01-01] MEDS: folic acid 1 mg Tablet PO (08:51)
[2025-01-01] MEDS: docusate sodium 100 mg Capsule PO ×2 (08:51→18:06)
[2025-01-01] MEDS: thiamine 100 mg Tablet PO (08:51)
--- NOTE | 2025-01-01 09:25 | PC.NURSE ---
Poison control called for update, cleared from their end
--- NOTE | 2025-01-01 10:00 | ECG_ITS ---
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 Measurements Intervals Vance Rate: 116 P: 50 MT: 153 QRS: 36 QRSD: 97 T: 23 QT: 322 QTc: 448 Interpretive Statements SINUS TACHYCARDIA NONSPECIFIC T-WAVE ABNORMALITY Compared to ECG 12/31/2024 20:49:27 No significant changes Electronically Signed On 01-01-2025 15:01:15 CDT by Jason Leiva M.D. [id number]
[2025-01-01] MEDS: cloNIDine 0.1 mg/24 hr Patch 1 PATCH TRANSDERMA (10:16)
[2025-01-01] MEDS: PHENobarbital 130 mg/mL SDV 1 mL 65 MG IVP ×2 (10:16→22:18)
--- NOTE | 2025-01-01 11:54 | P.PN_ITS ---
Subjective 2 Subjective: Overnight patient has required overall 8 mg of IV Ativan for alcohol withdrawal. Today morning on examination patient is jittery and asking for phenobarbital. Otherwise has remained hemodynamically stable and afebrile. Currently on 2 L saturating 98%. Heart rate slightly elevated on examination up to 120, sinus rhythm. Vitals/I&O/Wt Last Vital Signs Temp 98.2 F 01/01/25 04:45 Pulse 96 01/01/25 11:14 Resp 17 01/01/25 09:00 BP 132/77 01/01/25 10:16 Pulse Ox 98 01/01/25 11:14 O2 Del Method Nasal Cannula 01/01/25 11:14 O2 Flow Rate 2 01/01/25 11:14 12/31/24 01/01/25 01/01/25 22:59 06:59 14:59 Intake Total 1901.45 / 1901.45 316 / 2217.45 793.75 / 793.75 Output Total 500 / 500 1500 / 2000 Balance 1401.45 / 1401.45 -1184 / 217.45 793.75 / 793.75 Weight last 48 hrs Weight 83.28 kg Weight 81.783 kg Physical Exam 2 Narrative: General: No acute distress, AO x3, anxious, tremulous HEENT: PERRLA, pupils bilaterally equal and reactive Chest: Normal vesicular breath sounds, no added sounds, equal good air entry bilaterally CVS: S1-S2 regular, no murmurs, no tachycardia, no gallops, no rubs Abdomen: Soft, nontender, no organomegaly, bowel sounds present Neuro: No focal deficits, no facial deformity, AO x3, power 5/5 in all limbs Const: COMMON NORMALS: no acute distress and patient oriented x3 EXAM LIMITATIONS: behavioral limitations ORIENTATION/CONSCIOUSNESS: Yes awake, Yes oriented to person, Yes oriented to place and Yes oriented to time Neuro: COMMON NORMALS: patient oriented x3 SENSORIUM/ORIENTATION: Yes oriented to person, Yes oriented to place and Yes oriented to time Psych: COMMON NORMALS: cooperative; negative for speech normal APPEARANCE: Yes unkempt and Yes disheveled A TTITUDE: Yes agitated ACTIVITY/MOTOR BEHAVIOR: No appropriate eye contact, Yes fidgeting and Yes restless SPEECH: No normal speech, Yes slow, Yes delayed and Yes Pressured speech present MOOD & AFFECT: Yes anxious and Yes fearful MEMORY/COGNITION: Yes memory grossly intact JUDGEMENT: Limited judgement present (Psych) Urinary Catheter Management: Tripp: Cath Placed During This Visit: yes Reason for Continuing Indwelling Catheter: Accurate Measurement of Urinary Output in Critically Ill Patients Urinary Catheter Date of Insertion: 12/31/24 Urinary Catheter Time of Insertion: 23:00 Data 01/01/25 03:47 01/01/25 03:47 A&P Assessment and plan (1) Suicidal ideation: 96-hour hold paperwork done in the ER. Psych consulted. Sitter. Will transfer to Neuropsych Unit once medically cleared. Will try to get medical reconciliation from patient's outpatient pharmacy in AM tomorrow. Plan to start medications after reconciliation. (2) Intentional overdose: Patient states he took 15 tablets of 10 mg propranolol. Overall around 200 mg. Monitor for respiratory depression, hypotension, arrhythmias. Monitor for cerebral hypoperfusion. Telemetry. Hypoglycemia protocol. DuoNeb as needed. Monitor QTc. Repeat EKG in AM. Monitor electrolytes, calcium level. Appreciate Tylenol level, urine drug screen, salicylate level, lactic acid, digoxin level Atropine 0.5 mg if patient becomes bradycardic Continue with D5 NS at 75 cc/h. If QRS prolongation we will plan for sodium bicarbonate and magnesium. Seizure precautions. (3) Alcohol withdrawal: Patient gives history of frequent alcohol withdrawals complicated by seizures in the past requiring mechanical ventilation on previous hospitalization. States he tends to go into withdrawals even when his alcohol levels are high. States usually he needs phenobarbital to help him with alcohol withdrawals. Continue with CINY protocol. Appreciate phenobarbital level. Received 300 mg of IV phenobarbital every 3 hours last night. Start on phenobarbital taper. For now we will start on IV phenobarbital 64 mg twice daily for 4 doses followed by 32 mg twice daily for 4 doses followed by 32 mg daily for 2 doses. Will transition to oral once patient is able to tolerate orally. (4) Alcoholic intoxication: CIWA protocol. Banana bag. Precedex as needed. (5) Alcohol abuse: (6) Hypertension: Goal blood pressure less than 140/90 mmHg. Hydralazine 10 mg every 4 hours as needed for systolic blood pressure more than 160 mmHg. Start on clonidine patch 0.1 mg. Will confirm doses of medication tomorrow morning with pharmacy and start antihypertensive accordingly. Plan Convert to full liquid diet. Protonix for PUD prophylaxis Heparin 5000 every 12 hourly for DVT prophylaxis Dispo plan: Plan to transfer to Neuropsych Unit once patient is medically cleared which is stable hemodynamics with stable QTc for next 24 hours, stable electrolytes, able to maintain oral intake for further psych evaluation and 96- hour hold. PDMP PDMP Reviewed: Last Reviewed 12/31/24 17:50 by Lamberto Salazar MD Attestations 2 Medical Necessity Statement*: Requires further hospitalization for management of suicidal ideation, intentional drug overdose, alcohol intoxication and withdrawal Diagnoses Suicidal ideation R45.851 Intentional overdose T50.902A Alcohol withdrawal F10.939 Alcoholic intoxication F10.929 Alcohol abuse F10.10 Hypertension I10
[2025-01-01] MEDS: dexmedeTOMIDine 0.9 % NaCL 400 MCG/100 ML PREMIX IV (13:33)
--- NOTE | 2025-01-01 18:21 | PC.NURSE ---
Patient had a seizure around 1236 witnessed by Veena CRUZ, lasted approximately 1 minute. PRN ativan given, see MAR, notified Dr. Salazar. PRN precedex ordered and started per protocol see SEP.
[2025-01-01] MEDS: LORazepam 1 MG/0.5 ML injection 4 MG IVP (19:20)
--- NOTE | 2025-01-01 19:25 | P.PN_ITS ---
Subjective 2 Subjective: 39-year-old male with history of traumatic brain injury, alcoholism and alcohol withdrawal seizures reportedly has had intubation for this problem in the past. He is on phenobarbital but had a seizure. He was then given 2 mg of IV lorazepam but still had another seizure. I was asked to come down to evaluate the patient. The patient is awake but lethargic. Vitals/I&O/Wt Last Vital Signs Temp 98.2 F 01/01/25 04:45 Pulse 76 01/01/25 16:00 Resp 13 01/01/25 16:00 BP 123/76 01/01/25 16:00 Pulse Ox 97 01/01/25 16:00 O2 Del Method Nasal Cannula 01/01/25 11:14 O2 Flow Rate 2 01/01/25 11:14 01/01/25 01/01/25 01/01/25 06:59 14:59 22:59 Intake Total 316 / 2217.45 823.75 / 823.75 69.707 / 893.457 Output Total 1500 / 2000 1200 / 1200 Balance -1184 / 217.45 823.75 / 823.75 -1130.293 / -306.543 Weight last 48 hrs Weight 83.28 kg Weight 81.783 kg Physical Exam 2 Narrative: General well-developed healthy-appearing male robust build CV regular rate and rhythm Lungs clear to auscultation bilaterally Abdomen positive bowel sounds soft Calves no tenderness or edema Pupils equally round and reactive Urinary Catheter Management: Tripp: Cath Placed During This Visit: yes Reason for Continuing Indwelling Catheter: Accurate Measurement of Urinary Output in Critically Ill Patients Urinary Catheter Date of Insertion: 12/31/24 Urinary Catheter Time of Insertion: 23:00 Data 01/01/25 03:47 01/01/25 03:47 A&P Assessment and plan (1) Alcohol withdrawal seizure: Give additional 4 mg IV lorazepam now and a 1500 mg Keppra IV twice a day. If seizure returns will give 6 mg IV lorazepam and additional 1500 mg Keppra IV and consider intubation. (2) Alcohol intoxication: Alcohol level was 409 6 07/15/1600 p.m. which was yesterday 27 hours ago PDMP PDMP Reviewed: Not Reviewed Attestations 2 Medical Necessity Statement*: The patient will require additional 2 midnights in the hospital for control of his alcohol withdrawal seizures Coding Level of Care Code Critical Care >/= 30 minutes Diagnoses Alcohol withdrawal seizure F10.939; R56.9 Alcohol intoxication F10.929 Time Spent (min) 40
--- NOTE | 2025-01-01 19:34 | PC.NURSE ---
Seizure x2: Seizure from [id number] Dr. Etienne called @1905, New order to give 2mg IVP Ativan. Seizure from [id number] Dr. Etienne called @1910 and arrived on unit shortly after, new order to give 4mg IVP Ativan and continue Precedex, see MAR. RT, Tod on unit to assess pt.
[2025-01-01] MEDS: levETIRAcetam 1,500 MG/100 ML PREMIX 400 MG IV (19:49)
[2025-01-01] MEDS: lidocaine 1% 5 ML in potassium chloride premix 100 ML 26.25 ML IV (20:00)
[2025-01-01] MEDS: potassium phosphate (mMol PO4) 15 MMOL in sodium chloride 0.9% (100 ml) 100 ML 47 MMOL IV (20:07)
--- NOTE | 2025-01-01 20:58 | PC.NURSE ---
One-to-One Sitter: Notified of 1:1 sitter, current order placed under Dr. Etienne. See paper chart for 15min observation checks.
[2025-01-01 21:32] LABS: Glucose Point of Care 116 mg/dL (70-110)
[2025-01-02] VITALS (55 sets, daily range): BP systolic 93–130; BP diastolic 63–101; PULSE 63–105; RESP 10–21; TEMP 36.3–37; O2SAT 93–100
[2025-01-02] MEDS: morphine 4 mg/mL SDV 1 mL 2 MG IVP (03:56)
--- NOTE | 2025-01-02 04:05 | PC.NURSE ---
CIWA 14: Dr. Etienne notified of increase in CIWA to 14 @6234. Order to continue with CIWA protocol of 2mg IVP Ativan.
[2025-01-02] MEDS: LORazepam 1 MG/0.5 ML injection 2 MG IVP ×4 (04:13→20:58)
[2025-01-02] MEDS: pantoprazole 40 mg SDV IVP ×2 (04:51→17:24)
[2025-01-02 05:19] LABS: Basophils # 0.1 10^3/uL (0.0-0.1); Basophils % 0.9 %; Eosinophils # 0.3 10^3/uL (0.0-0.8); Hematocrit 43.2 % (37-53); Lymphocytes % 19.2 %; Mean Corpuscular HGB Conc 34.3 g/dL (30-55); Mean Corpuscular Hemoglobin 30.6 pg (27-33); Mean Corpuscular Volume 89.4 fl (82-101); Mean Platelet Volume 9.4 fL (7.4-10.4); Monocytes # 0.5 10^3/uL (0.2-0.9); Neutrophils # 3.56 10^3/uL (1.8-7.7); Neutrophils % 65.5 %; Nucleated Red Blood Cells % 0 %; Platelet Count 60 10^3/cmm (157-399); Red Blood Count 4.83 10^6/uL (3.85-5.65); Red Cell Distribution Width 12.3 % (12.1-15.1); White Blood Count 5.43 10^3/uL (3.29-11.43)
[2025-01-02 05:39] LABS: Alanine Aminotransferase 127 U/L (0-41); Albumin Level 3.8 g/dL (3.5-5.2); Alkaline Phosphatase 55 U/L (40-130); Anion Gap 14.3 (5-19); Aspartate Amino Transferase 73 U/L (0-40); Blood Urea Nitrogen 11 mg/dL (6-20); Calcium 8.6 mg/dL (8.5-10.5); Carbon Dioxide 27 mmol/L (22-29); Chloride 100 mmol/L (98-107); Creatinine Clr Calc Pharmacy 187.1453; Globulin 2.6 g/dL (1.3-4.6); Glomerular Filtration Rate 151.6 mL/min (90-130); Glucose 100 mg/dL (65-115); Magnesium 1.8 mg/dL (1.7-2.3); Osmolality Calculated 285 mOsm/kg (285-295); Phosphorus 3.2 mg/dL (2.5-4.5); Potassium 3.3 mmol/L (3.5-5.1); Sodium 138 mmol/L (136-145); Total Bilirubin 1.9 mg/dL (0.15-1.2); Total Protein 6.4 g/dL (6.6-8.7)
[2025-01-02] MEDS: levETIRAcetam 1,500 MG/100 ML PREMIX 400 MG IV (06:51)
[2025-01-02] MEDS: heparin 5,000 unit/mL INJ 1 mL 5000 UNIT SUBCUT ×2 (06:53→18:48)
[2025-01-02] MEDS: lidocaine 1% 5 ML in potassium chloride premix 100 ML 26.25 ML IV (07:20)
[2025-01-02 07:35] LABS: Glucose Point of Care 89 mg/dL (70-110)
[2025-01-02] MEDS: folic acid 1 mg Tablet PO (08:15)
[2025-01-02] MEDS: multivitamin therapeutic Tablet 1 TAB PO (08:15)
[2025-01-02] MEDS: docusate sodium 100 mg Capsule PO ×2 (08:15→17:24)
[2025-01-02] MEDS: thiamine 100 mg Tablet PO (08:15)
--- NOTE | 2025-01-02 08:35 | PC.NURSE ---
Patient stated he would like to watch something with animals on TV. Tv turned to animal planet and patient began holding his head and asking for TV to be turned off. Patient stated the TV made his hallucinations worse. CIWA score of 14 at this time, 2 MG Ativan per protocol. Pharmacy called to [facility]. See MAR for admin. Patient requesting stuffy a stuffed animal from his belongings. No such item in locked belonging bin. Patient states a man with a brief case was in his room and probably took the stuffy to [facility]. This nurse will speak with patients family to locate this item.
[2025-01-02] MEDS: potassium chloride oral liq 20 mEq/15 mL UDC 40 MEQ PO (09:29)
[2025-01-02] MEDS: PHENobarbital 130 mg/mL SDV 1 mL 65 MG IVP ×2 (10:26→22:23)
[2025-01-02] MEDS: dextrose 5%-sod chloride 0.9% 1,000 ML 75 ML IV (10:29)
--- NOTE | 2025-01-02 10:54 | PC.NURSE ---
Discussed with Dr. Salazar dose of IV potassium not given, agreed to hold dose for now. Patient receiving dose of IV potassium currently and PO dose was given.
--- NOTE | 2025-01-02 11:33 | ECG_ITS ---
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 Measurements Intervals [place] Rate: 78 P: 41 [place]: 160 QRS: 38 QRSD: 97 T: 25 QT: 369 QTc: 421 Interpretive Statements SINUS RHYTHM ST ELEVATION, PROBABLY EARLY REPOLARIZATION [ST ELEVATION WITH NORMALLY INFLECTED T-WAVE] Compared to ECG 01/01/2025 11:02:09 ST (T wave) deviation now present Early repolarization now present Sinus tachycardia no longer present T-wave abnormality no longer present Electronically Signed On 01-02-2025 14:31:23 CDT by Bruce Mora M.D. [id number]
[2025-01-02 11:59] LABS: Glucose Point of Care 120 mg/dL (70-110)
--- NOTE | 2025-01-02 13:25 | P.PN_ITS ---
Subjective 2 Subjective: Today morning at shift change patient had another episode of seizure. Patient was given 2 mg of IV Ativan and was given loading dose of Keppra 1500 mg. On examination patient is on Precedex of 0.1. Waking up to verbal stimulus. Vitals/I&O/Wt Last Vital Signs Temp 98.6 F 01/02/25 12:30 Pulse 66 01/02/25 12:30 Resp 14 01/02/25 12:30 BP 115/72 01/02/25 12:30 Pulse Ox 100 01/02/25 12:30 O2 Del Method Room Air 01/02/25 12:30 O2 Flow Rate 2 01/02/25 08:02 01/01/25 01/02/25 01/02/25 22:59 06:59 14:59 Intake Total 1461.390 / 2285.140 235.114 / 2520.254 1341.259 / 1341.259 Output Total 1200 / 1200 1125 / 2325 Balance 261.390 / 1085.140 -889.886 / 770.469 4690.259 / 1341.259 Weight last 48 hrs Weight 83.824 kg Weight 83.28 kg Weight 81.783 kg Physical Exam 2 Narrative: General: No acute distress, AO x3, drowsy, not tremulous HEENT: PERRLA, pupils bilaterally equal and reactive Chest: Normal vesicular breath sounds, no added sounds, equal good air entry bilaterally CVS: S1-S2 regular, no murmurs, no tachycardia, no gallops, no rubs Abdomen: Soft, nontender, no organomegaly, bowel sounds present Neuro: No focal deficits, no facial deformity, AO x3, power 5/5 in all limbs Const: COMMON NORMALS: no acute distress and patient oriented x3 EXAM LIMITATIONS: behavioral limitations ORIENTATION/CONSCIOUSNESS: Yes awake, Yes oriented to person, Yes oriented to place and Yes oriented to time Neuro: COMMON NORMALS: patient oriented x3 SENSORIUM/ORIENTATION: Yes oriented to person, Yes oriented to place and Yes oriented to time Psych: COMMON NORMALS: cooperative; negative for speech normal APPEARANCE: Yes unkempt and Yes disheveled A TTITUDE: Yes agitated ACTIVITY/MOTOR BEHAVIOR: No appropriate eye contact, Yes fidgeting and Yes restless SPEECH: No normal speech, Yes slow, Yes delayed and Yes Pressured speech present MOOD & AFFECT: Yes anxious and Yes fearful MEMORY/COGNITION: Yes memory grossly intact JUDGEMENT: Limited judgement present (Psych) Urinary Catheter Management: Tripp: Cath Placed During This Visit: yes Reason for Continuing Indwelling Catheter: Accurate Measurement of Urinary Output in Critically Ill Patients Urinary Catheter Date of Insertion: 12/31/24 Urinary Catheter Time of Insertion: 23:00 Data 01/02/25 04:59 01/02/25 04:59 A&P Assessment and plan (1) Suicidal ideation: 96-hour hold paperwork done in the ER. Psych consulted. Sitter. Will transfer to Neuropsych Unit once medically cleared. Will try to get medical reconciliation from patient's outpatient pharmacy in AM tomorrow. Plan to start medications after reconciliation. (2) Intentional overdose: Patient states he took 15 tablets of 10 mg propranolol. Overall around 200 mg. Monitor for respiratory depression, hypotension, arrhythmias. Monitor for cerebral hypoperfusion. Telemetry. Hypoglycemia protocol. DuoNeb as needed. QTc stable. Stable electrolytes, calcium level. Appreciate Tylenol level, urine drug screen, salicylate level, lactic acid, digoxin level Atropine 0.5 mg if patient becomes bradycardic Continue with D5 NS at 75 cc/h. Will stop IV fluids once patient is more awake and able to tolerate orally. If QRS prolongation we will plan for sodium bicarbonate and magnesium. Seizure precautions. (3) Alcohol withdrawal seizure: Continue with phenobarbital. Phenobarbital level checked yesterday normal. Will recheck today. Currently on weaning dose of 64 mg for 4 doses. Will transition to 32.4 mg twice daily dose from tomorrow. Received Keppra in morning. For now changed to 1000 mg twice daily as patient is drowsy. If repeat Phenobarbital level low will discontinue Keppra and increase the dose of phenobarbital. Stop Precedex as patient is drowsy. Maintaining airway. On room air. Sitter at bedside. (4) Alcohol intoxication: (5) Alcohol withdrawal: Patient gives history of frequent alcohol withdrawals complicated by seizures in the past requiring mechanical ventilation on previous hospitalization. States he tends to go into withdrawals even when his alcohol levels are high. States usually he needs phenobarbital to help him with alcohol withdrawals. Continue with CIWA protocol. Appreciate phenobarbital level. Received 300 mg of IV phenobarbital every 3 hours last night. Start on phenobarbital taper. For now we will start on IV phenobarbital 64 mg twice daily for 4 doses followed by 32 mg twice daily for 4 doses followed by 32 mg daily for 2 doses. Will transition to oral once patient is able to tolerate orally. (6) Alcohol abuse: (7) Hypertension: Goal blood pressure less than 140/90 mmHg. Hydralazine 10 mg every 4 hours as needed for systolic blood pressure more than 160 mmHg. Start on clonidine patch 0.1 mg. Will confirm doses of medication tomorrow morning with pharmacy and start antihypertensive accordingly. Plan Convert to full liquid diet. Protonix for PUD prophylaxis Heparin 5000 every 12 hourly for DVT prophylaxis Dispo plan: Plan to transfer to Neuropsych Unit once patient is medically cleared which is stable hemodynamics with stable QTc for next 24 hours, stable electrolytes, able to maintain oral intake for further psych evaluation and 96- hour hold. PDMP PDMP Reviewed: Last Reviewed 12/31/24 17:50 by Lamberto Salazar MD Attestations 2 Medical Necessity Statement*: Require further hospitalization for management of alcohol withdrawal seizures, alcohol intoxication, suicidal ideation with intentional overdose of propranolol, 96-hour hold Critical Care Time: The high probability of a clinically significant, sudden or life threatening deterioration of the patient's [neurology] system(s) required my full and direct attention, intervention and personal management. The critical care time is as shown. This time is in addition to time spent performing any reported procedures but includes the following: [x] Data and vital sign review and interpretation [x] Patient assessment, examination and intervention [x] Documentation [x] Medication orders and management Critical Care Time (min): 70 Coding Level of Care Code Critical Care >/= 30 minutes Critical care time (in minutes): 70 The high probability of a clinically significant, sudden or life threatening deterioration, as referenced in this documentation, required my full and direct attention, intervention and personal management. The critical care time shown is in addition to time spent performing any reported separately billable procedures and includes the following: [x] Data and vital sign review and interpretation [x ] Patient assessment, examination and intervention [x] Medication orders and management [x] Patient/Family updates as able [x] Care Coordination and Documentation. Other Coding Information This patient has a high probability of clinically significant, sudden or life threatening deterioration of the patient's (neurological/pulmonary/cardiac/renal/ID/endocrine) systems required my full, direct attention, the highest level of physician preparedness for urgent intervention and personal management. I managed/supervised life or organ supporting interventions that required frequent physician assessment. I devoted my full attention in the ICU to the direct care of this patient for the period of time indicated above. Time I spent with family or surrogate(s) is included only if the patient was incapable of providing necessary information or participating in decision making. This time includes the following services provided: Telemetry review Hemodynamic interpretation, assessment and management Review and interpretation of CXR Review and interpretation of lab values Review and interpretation of microbiologic data and culture results Review of medications and administration Review and interpretation of Nutrition requirements and management Discussion of management with other consultants and services Clinical update to family members Diagnoses Suicidal ideation R45.851 Intentional overdose T50.902A Alcohol withdrawal seizure F10.939; R56.9 Alcohol intoxication F10.929 Alcohol withdrawal F10.939 Alcohol abuse F10.10 Hypertension I10
[2025-01-02 18:11] LABS: Glucose Point of Care 122 mg/dL (70-110)
--- NOTE | 2025-01-02 18:39 | P.NPUHP_ITS ---
Providers/Chief Complaint 2 Admitting Physician: Lamberto Salazar MD Chief Complaint: SI attempt HPI NPU History of Present Illness Isidro Hernandez is a 39 year old male who presented to the emergency department with the following report: Chief Complaint: Overdose Stated Complaint: SI attempt Time Seen by Provider: 12/31/24 16:23 History of Present Illness: 39-year-old man with a history of alcohol abuse who presents to the emergency room by ambulance after reportedly taking an overdose of thirty 10 mg propranolol and alcohol. He appears quite intoxicated on presentation. Apparently he is in a hotel here. He is from [place]. He says he just wants to when he gets here. He was admitted to the ICU for definitive treatment of those issues. He was put on a Precedex drip and was given CIWA protocol with significant issues with alcohol withdrawal and had an intentional overdose and continued to endorse that that was the case. He was however fairly lethargic and unable to really participate in a full throat interview secondary to the medications to help with his withdrawal. What we understand to be the case is that he is an individual who is in town currently working and living in a motel. There are reports in the chart about him being from [place] but it is unclear if that is true because there is some reports of him being from the [place] area in [place] as well. There is some history of a TBI which is unclear. They just pushed back to Precedex today allowing him to have some more active cognition but otherwise he does endorse that he drinks a lot and there was significant signs of this at his motel room. He also does endorse this was a suicide attempt but was unable to stay awake long enough to give much more information. We will attempt to get additional information tomorrow. We did discuss with him that given his presentation we will continue his stay over the neuropsychiatric unit and given his being subdued and not getting any real treatment for the suicidal nature of his presentation he will likely end up on a 21-day hold as we try to assist him and his mental health crisis Meds NPU Home Medications ?Medication ?Instructions ?Recorded ?Confirmed ?Last Taken ?Type No Known Home Medications 12/27/2412/20 Unknown History Allergies Allergy/AdvReac Type Severity Reaction Status Date / Time azithromycin Allergy ADR-Chest Verified 12/24/24 20:24 Pain PFSH NPU 2 PFSH: Medical History (Updated 01/03/25 @ 10:35 by Delbert Puente MD) Alcohol withdrawal seizure Traumatic brain injury Alcohol abuse Alcohol withdrawal seizure with complication Hypertension Alcoholism Social History (Updated 12/31/24 @ 18:20 by Lamberto Salazar MD) Smoking and tobacco/nicotine status: former use of tobacco/nicotine Alcohol intake: current Substance/Drug Use: unknown Caregiver/support person: Yes Household members: family Housing: House Mental Status Exam 2 MSE Comments: Is a well-nourished well-developed white male in hospital gown with limited grooming and eye contact. No abnormal movements except for significant psychomotor retardation. Somewhat cooperative with exam and mild distress. Speech was limited and decreased rate and volume. Mood described as okay, affect significantly subdued. Thought process linear. Thought content: Patient did not report suicidal or homicidal ideation but was needing to be constantly awoken to speak. There were no delusions reported or noted he did not report any auditory visual hallucination. Attention and concentration were impaired and memory was unable to be obtained but none were formally tested. He is arousable and oriented to person and place. Insight, judgment and impulse control are impaired. Vitals/I&O/Wt Last Vital Signs Temp 97.6 F 01/02/25 18:00 Pulse 87 01/02/25 18:00 Resp 14 01/02/25 18:00 BP 114/68 01/02/25 18:00 Pulse Ox 96 01/02/25 18:00 O2 Del Method Room Air 01/02/25 18:00 O2 Flow Rate 2 01/02/25 08:02 01/02/25 01/02/25 01/02/25 06:59 14:59 22:59 Intake Total 235.114 / 2520.254 1341.259 / 1341.259 200 / 1541.259 Output Total 1125 / 2325 1100 / 1100 Balance -889.886 / 195.254 241.259 / 241.259 200 / 441.259 Weight last 48 hrs Weight 83.824 kg Weight 83.28 kg Weight 81.783 kg Physical Exam 2 Urinary Catheter Management: Tripp: Cath Placed During This Visit: yes Reason for Continuing Indwelling Catheter: Accurate Measurement of Urinary Output in Critically Ill Patients Urinary Catheter Date of Insertion: 12/31/24 Urinary Catheter Time of Insertion: 23:00 Data NPU 01/03/25 04:32 01/03/25 04:32 A&P Assessment and plan (1) Alcoholic intoxication: (2) Intentional overdose: (3) Suicidal ideation: (4) Alcohol withdrawal: (5) Depression: (6) Alcohol withdrawal seizure: (7) Alcohol use disorder, severe, dependence: Plan This is a 39-year-old male with depression, significant alcohol use disorder who presented to the hospital with a blood alcohol level of 409 admitted with suicidal ideation with continued difficulty with addiction. Plan: 1. We will explore medications for depression and anxiety. 2. Continue with one-to-one. 3. Transfer to neuropsychiatric unit when medically stable. 4. Encourage sober living treatment after discharge at the highest level of care to which he is willing to commit. 5. Initiate CIWA protocol 6. Will gather collateral information. 7. Evaluate against the backdrop of 96-hour hold. PDMP PDMP Reviewed: Not Reviewed Involuntary Hold Information 2 Hold Status: Date/Time Hold Expires: 01/06/25 @ 1630 Attestations NPU 2 Medical Necessity Statement*: Inpatient hospitalization is medically necessary and the clinically appropriate intervention at this time. We will monitor medications and make changes as indicated. Patient will be in the hospital for over two midnights. Likely length of stay is 3-5 days. Coding Level of Care Code Acute Code for [facility] Diagnoses Alcoholic intoxication F10.929 Intentional overdose T50.902A Suicidal ideation R45.851 Alcohol withdrawal F10.939 Depression F32.A Alcohol withdrawal seizure F10.939; R56.9 Alcohol use disorder, severe, dependence F10.20
[2025-01-02] MEDS: levETIRAcetam 1,000 MG/100 ML PREMIX 400 MG IV (18:48)
--- NOTE | 2025-01-02 19:39 | PC.NURSE ---
Pt complaining of heartburn. Dr. Etienne notified, new telephone order for GI cocktail Q6H PRN.
[2025-01-02] MEDS: lidocaine 2% viscous 15 ML, aluminum-mag hydrox-simethicon 30 ML, sucralfate oral liq 1 GM PO (20:23)
[2025-01-02 22:30] LABS: Glucose Point of Care 96 mg/dL (70-110)
[2025-01-03] VITALS (155 sets, daily range): BP systolic 95–137; BP diastolic 58–90; PULSE 75–112; RESP 3–26; TEMP 36.7–37.1; O2SAT 91–100
[2025-01-03] MEDS: LORazepam 1 MG/0.5 ML injection 2 MG IVP ×5 (00:38→23:40)
[2025-01-03] MEDS: dextrose 5%-sod chloride 0.9% 1,000 ML 75 ML IV (03:01)
--- NOTE | 2025-01-03 04:04 | PC.NURSE ---
Pt stated to [facility] that he wants to leave and take all of his pills at once.
[2025-01-03 05:20] LABS: Basophils # 0.1 10^3/uL (0.0-0.1); Basophils % 0.6 %; Eosinophils # 0.3 10^3/uL (0.0-0.8); Eosinophils % 4.1 %; Hematocrit 43.9 % (37-53); Lymphocytes # 1.4 10^3/uL (0.8-4.8); Lymphocytes % 18.2 %; Mean Corpuscular HGB Conc 33.7 g/dL (30-55); Mean Corpuscular Hemoglobin 30.1 pg (27-33); Mean Corpuscular Volume 89.4 fl (82-101); Monocytes # 0.8 10^3/uL (0.2-0.9); Monocytes % 9.9 %; Neutrophils # 5.26 10^3/uL (1.8-7.7); Neutrophils % 66.6 %; Nucleated Red Blood Cells % 0 %; Platelet Count 59 10^3/cmm (157-399); Red Blood Count 4.91 10^6/uL (3.85-5.65); Red Cell Distribution Width 11.9 % (12.1-15.1)
[2025-01-03 05:36] LABS: Alanine Aminotransferase 128 U/L (0-41); Albumin Level 4.1 g/dL (3.5-5.2); Alkaline Phosphatase 69 U/L (40-130); Aspartate Amino Transferase 86 U/L (0-40); Blood Urea Nitrogen 8 mg/dL (6-20); Calcium 8.7 mg/dL (8.5-10.5); Carbon Dioxide 26 mmol/L (22-29); Chloride 95 mmol/L (98-107); Creatinine Clr Calc Pharmacy 187.6641; Globulin 2.4 g/dL (1.3-4.6); Glomerular Filtration Rate 151.6 mL/min (90-130); Glucose 87 mg/dL (65-115); Magnesium 1.6 mg/dL (1.7-2.3); Osmolality Calculated 274 mOsm/kg (285-295); Phosphorus 2.2 mg/dL (2.5-4.5); Sodium 133 mmol/L (136-145); Total Bilirubin 1.6 mg/dL (0.15-1.2); Total Protein 6.5 g/dL (6.6-8.7)
[2025-01-03 05:41] LABS: Anion Gap 15.7 (5-19); Potassium 3.7 mmol/L (3.5-5.1)
[2025-01-03] MEDS: levETIRAcetam 1,000 MG/100 ML PREMIX 400 MG IV ×2 (06:21→19:18)
[2025-01-03] MEDS: pantoprazole 40 mg SDV IVP ×2 (06:21→17:48)
[2025-01-03] MEDS: potassium phosphate (mMol PO4) 15 MMOL in sodium chloride 0.9% (100 ml) 100 ML 47 MMOL IV (07:47)
[2025-01-03] MEDS: heparin 5,000 unit/mL INJ 1 mL 5000 UNIT SUBCUT ×2 (07:48→19:18)
[2025-01-03 08:01] LABS: Glucose Point of Care 91 mg/dL (70-110)
[2025-01-03] MEDS: magnesium sulfate premix 2 GM/50 ML PIGGYBACK IV (08:20)
[2025-01-03] MEDS: thiamine 100 mg Tablet PO (08:20)
[2025-01-03] MEDS: folic acid 1 mg Tablet PO (08:20)
[2025-01-03] MEDS: LORazepam 2 mg Tablet PO (08:20)
[2025-01-03] MEDS: PHENobarbital 32.4 mg Tablet PO ×2 (08:20→17:48)
[2025-01-03] MEDS: docusate sodium 100 mg Capsule PO (08:20)
[2025-01-03] MEDS: multivitamin therapeutic Tablet 1 TAB PO (08:20)
--- NOTE | 2025-01-03 10:41 | P.NPUPN_ITS ---
Subjective NPU 2 Subjective: Patient doing a bit better today per he and staff reports. Staff endorse that he reports that his children were taken by his and that part of where the depression is coming from. Still having withdrawal symptoms and receiving CIWA protocol medications. Precedex is off and he is slowly regaining his cognition. Transferred to the neuropsychiatric unit tomorrow was discussed. Mental Status Exam 2 MSE Comments: Is a well-nourished well-developed white male in hospital gown with limited grooming and eye contact. No abnormal movements except for significant psychomotor retardation. Somewhat cooperative with exam and mild distress. Speech was limited and decreased rate and volume. Mood described as okay, affect significantly subdued. Thought process linear. Thought content: Patient did not report suicidal or homicidal ideation but was needing to be constantly awoken to speak. There were no delusions reported or noted he did not report any auditory visual hallucination. Attention and concentration were impaired and memory was unable to be obtained but none were formally tested. He is arousable and oriented to person and place. Insight, judgment and impulse control are impaired. Vitals/I&O/Wt Last Vital Signs Temp 98.1 F 01/03/25 07:30 Pulse 84 01/03/25 10:30 Resp 15 01/03/25 09:00 BP 109/74 01/03/25 10:30 Pulse Ox 92 01/03/25 10:30 O2 Del Method Room Air 01/03/25 10:30 O2 Flow Rate 2 01/02/25 08:02 01/02/25 01/03/25 01/03/25 22:59 06:59 14:59 Intake Total 300 / 4804.316 2677 / 2981.259 555 / 555 Output Total 1650 / 2750 500 / 500 Balance 300 / 541.259 -310 / 231.259 55 / 55 Weight last 48 hrs Weight 84.7 kg Weight 84.7 kg Weight 83.824 kg Physical Exam 2 Urinary Catheter Management: Tripp: Cath Placed During This Visit: yes, but has since been removed by the nurse Reason for Continuing Indwelling Catheter: Accurate Measurement of Urinary Output in Critically Ill Patients Urinary Catheter Date of Insertion: 12/31/24 Urinary Catheter Time of Insertion: 23:00 Date Urinary Catheter Removed: 01/03/25 Time Urinary Catheter Discontinued: 01:01 Data NPU 01/03/25 04:32 01/04/25 03:52 A&P Assessment and plan (1) Alcoholic intoxication: (2) Intentional overdose: (3) Suicidal ideation: (4) Alcohol withdrawal: (5) Depression: (6) Alcohol withdrawal seizure: (7) Alcohol use disorder, severe, dependence: Plan This is a 39-year-old male with depression, significant alcohol use disorder who presented to the hospital with a blood alcohol level of 409 admitted with suicidal ideation with continued difficulty with addiction. Plan: 1. We will explore medications for depression and anxiety. 2. Continue with one-to-one. 3. Transfer to neuropsychiatric unit when medically stable. Hopefully tomorrow 4. Encourage sober living treatment after discharge at the highest level of care to which he is willing to commit. 5. Initiate CIWA protocol 6. Will gather collateral information. 7. Evaluate against the backdrop of 96-hour hold. PDMP PDMP Reviewed: Not Reviewed Involuntary Hold Information 2 Hold Status: Date/Time Hold Expires: 01/06/25 @ 1630 Attestations NPU 2 Medical Necessity Statement*: Inpatient hospitalization is medically necessary and the clinically appropriate intervention at this time. We will monitor medications and make changes as indicated. Likely length of stay is 3-5 days. Coding Level of Care Code Acute Code for [facility] Diagnoses Alcoholic intoxication F10.929 Intentional overdose T50.902A Suicidal ideation R45.851 Alcohol withdrawal F10.939 Depression F32.A Alcohol withdrawal seizure F10.939; R56.9 Alcohol use disorder, severe, dependence F10.20
[2025-01-03] MEDS: metoprolol tartrate 25 mg Tablet PO (12:18)
[2025-01-03 12:26] LABS: Glucose Point of Care 104 mg/dL (70-110)
--- NOTE | 2025-01-03 13:39 | P.PN_ITS ---
Subjective 2 Subjective: No acute events overnight. Patient has remained hemodynamically stable and afebrile. No further episodes of seizures. Complaining of hallucinations today. States he feels as though overall concrete is working towards him. States he is seeing things in the room which he knows are not there. Vitals/I&O/Wt Last Vital Signs Temp 98.1 F 01/03/25 07:30 Pulse 84 01/03/25 10:30 Resp 15 01/03/25 09:00 BP 109/74 01/03/25 10:30 Pulse Ox 92 01/03/25 10:30 O2 Del Method Room Air 01/03/25 10:30 O2 Flow Rate 2 01/02/25 08:02 01/02/25 01/03/25 01/03/25 22:59 06:59 14:59 Intake Total 300 / 8847.993 6241 / 2981.259 555 / 555 Output Total 1650 / 2750 500 / 500 Balance 300 / 541.259 -310 / 231.259 55 / 55 Weight last 48 hrs Weight 84.7 kg Weight 84.7 kg Weight 83.824 kg Physical Exam 2 Narrative: General: No acute distress, AO x3, drowsy, not tremulous HEENT: PERRLA, pupils bilaterally equal and reactive Chest: Normal vesicular breath sounds, no added sounds, equal good air entry bilaterally CVS: S1-S2 regular, no murmurs, no tachycardia, no gallops, no rubs Abdomen: Soft, nontender, no organomegaly, bowel sounds present Neuro: No focal deficits, no facial deformity, AO x3, power 5/5 in all limbs Const: COMMON NORMALS: no acute distress and patient oriented x3 EXAM LIMITATIONS: behavioral limitations ORIENTATION/CONSCIOUSNESS: Yes awake, Yes oriented to person, Yes oriented to place and Yes oriented to time Neuro: COMMON NORMALS: patient oriented x3 SENSORIUM/ORIENTATION: Yes oriented to person, Yes oriented to place and Yes oriented to time Psych: COMMON NORMALS: cooperative; negative for speech normal APPEARANCE: Yes unkempt and Yes disheveled A TTITUDE: Yes agitated ACTIVITY/MOTOR BEHAVIOR: No appropriate eye contact, Yes fidgeting and Yes restless SPEECH: No normal speech, Yes slow, Yes delayed and Yes Pressured speech present MOOD & AFFECT: Yes anxious and Yes fearful MEMORY/COGNITION: Yes memory grossly intact JUDGEMENT: Limited judgement present (Psych) Urinary Catheter Management: Tripp: Cath Placed During This Visit: yes, but has since been removed by the nurse Reason for Continuing Indwelling Catheter: Accurate Measurement of Urinary Output in Critically Ill Patients Urinary Catheter Date of Insertion: 12/31/24 Urinary Catheter Time of Insertion: 23:00 Date Urinary Catheter Removed: 01/03/25 Time Urinary Catheter Discontinued: 01:01 Data 01/03/25 04:32 01/03/25 04:32 A&P Assessment and plan (1) Suicidal ideation: 96-hour hold paperwork done in the ER. Psych consulted. Sitter. Will transfer to Neuropsych Unit once medically cleared. Will try to get medical reconciliation from patient's outpatient pharmacy in AM tomorrow. Plan to start medications after reconciliation. (2) Intentional overdose: Patient states he took 15 tablets of 10 mg propranolol. Overall around 200 mg. Monitor for respiratory depression, hypotension, arrhythmias. Monitor for cerebral hypoperfusion. Telemetry. Hypoglycemia protocol. DuoNeb as needed. QTc stable. Stable electrolytes, calcium level. Appreciate Tylenol level, urine drug screen, salicylate level, lactic acid, digoxin level Atropine 0.5 mg if patient becomes bradycardic Continue with D5 NS at 75 cc/h. Will stop IV fluids once patient is more awake and able to tolerate orally. If QRS prolongation we will plan for sodium bicarbonate and magnesium. Seizure precautions. (3) Alcohol withdrawal seizure: Continue with phenobarbital. Phenobarbital level checked yesterday normal. Will recheck today. Currently on weaning dose of 64 mg for 4 doses. Will transition to 32.4 mg twice daily dose from tomorrow. Received Keppra in morning. For now changed to 1000 mg twice daily as patient is drowsy. If repeat Phenobarbital level low will discontinue Keppra and increase the dose of phenobarbital. Stop Precedex as patient is drowsy. Maintaining airway. On room air. Sitter at bedside. (4) Alcohol intoxication: (5) Alcohol withdrawal: Patient gives history of frequent alcohol withdrawals complicated by seizures in the past requiring mechanical ventilation on previous hospitalization. States he tends to go into withdrawals even when his alcohol levels are high. States usually he needs phenobarbital to help him with alcohol withdrawals. Continue with CIWA protocol. Appreciate phenobarbital level. Received 300 mg of IV phenobarbital every 3 hours last night. Start on phenobarbital taper. For now we will start on IV phenobarbital 64 mg twice daily for 4 doses followed by 32 mg twice daily for 4 doses followed by 32 mg daily for 2 doses. Will transition to oral once patient is able to tolerate orally. (6) Alcohol abuse: (7) Hypertension: Goal blood pressure less than 140/90 mmHg. Hydralazine 10 mg every 4 hours as needed for systolic blood pressure more than 160 mmHg. Start on clonidine patch 0.1 mg. Will confirm doses of medication tomorrow morning with pharmacy and start antihypertensive accordingly. Plan Convert to full liquid diet. Protonix for PUD prophylaxis Heparin 5000 every 12 hourly for DVT prophylaxis Dispo plan: Plan to transfer to Neuropsych Unit once patient is medically cleared which is stable hemodynamics with stable QTc for next 24 hours, stable electrolytes, able to maintain oral intake for further psych evaluation and 96- hour hold. Plan for the day: No further seizure-like activity. Continue with phenobarbital weaning. Currently on 32.4 mg of phenobarbital for next full dose followed by 32.4 mg daily for next 2 days. Appreciate appropriate phenobarbital levels. Continue with IV Keppra. Appreciate psychiatric recommendations. Goal blood pressure less than 140/90 mmHg. Continue with clonidine patch. Add metoprolol 25 mg twice daily. Replace 40 mg of oral potassium. Already repleted potassium phosphate and magnesium overnight. CIWA protocol for alcohol withdrawal. Advance to mechanical soft diet. If patient continues to do well can possibly transition to Neuropsych Unit in next 24 hours. PDMP PDMP Reviewed: Last Reviewed 12/31/24 17:50 by Lamberto Salazar MD Attestations 2 Medical Necessity Statement*: Requires further hospitalization for management suicidal ideation, intentional overdose of propranolol, alcohol withdrawal, 96-hour hold while patient will need to be transition to Neuropsych Unit Diagnoses Suicidal ideation R45.851 Intentional overdose T50.902A Alcohol withdrawal seizure F10.939; R56.9 Alcohol intoxication F10.929 Alcohol withdrawal F10.939 Alcohol abuse F10.10 Hypertension I10
--- NOTE | 2025-01-03 19:26 | PC.NURSE ---
Patient is up to recliner at bedside, [facility] Patient is requesting to have his wrist bands removed, educated patient on importance of having them on. Patient is AO to self, location, but is uncertain about date.
[2025-01-03] MEDS: trazodone 50 mg Tablet PO (19:53)
[2025-01-03 21:26] LABS: Glucose Point of Care 111 mg/dL (70-110)
[2025-01-04] VITALS (263 sets, daily range): BP systolic 62–132; BP diastolic 51–90; PULSE 75–134; RESP 10–203; TEMP 36.4–36.9; O2SAT 88–98; BMI 26.2
[2025-01-04] MEDS: LORazepam 1 MG/0.5 ML injection 2 MG IVP ×4 (01:59→12:42)
--- NOTE | 2025-01-04 02:00 | PC.NURSE ---
Patient extremely agitated after found to be masturbating in bed. He got up to use restroom and then came out extremely agitated and being verbally aggressive with staff about why he was getting so many medications. He then began to cry stating he was seeing things coming out of the wall, words were very garbled, requesting numerous methods to use the restroom from a urinal to bedside commode, and he was asking for an array of medications. IVP ativan administered.
[2025-01-04] MEDS: haloperidol inj 5 mg/mL INJ 1 mL IM ×2 (02:53→12:46)
--- NOTE | 2025-01-04 03:19 | PC.NURSE ---
Patient continued to become more and more aggressive with staff. Provider notified that ativan max dose was administered and gave PRN orders for 5mg IM Haldol. See MAR.
--- NOTE | 2025-01-04 03:22 | PC.NURSE ---
Patient was up to bedside commode and PSA stated that patient had pulled patch off of shoulder. It was a clonidine patch that was placed on 01/01 and patient currently refusing to have patch replaced.
--- NOTE | 2025-01-04 04:59 | PC.NURSE ---
Patient refused to let lab complete AM labs. They were able to draw a red top at which time the patient instructed the roofing laborer to stop and is refusing any further attempts to draw, even after attempts by staff to educate patient on the importance of routine lab work. Provider notified.
[2025-01-04] MEDS: pantoprazole 40 mg SDV IVP (05:30)
[2025-01-04 05:33] LABS: Alanine Aminotransferase 128 U/L (0-41); Alkaline Phosphatase 72 U/L (40-130); Aspartate Amino Transferase 84 U/L (0-40); Blood Urea Nitrogen 9 mg/dL (6-20); Calcium 8.7 mg/dL (8.5-10.5); Carbon Dioxide 24 mmol/L (22-29); Chloride 97 mmol/L (98-107); Globulin 2.6 g/dL (1.3-4.6); Glomerular Filtration Rate 126.9 mL/min (90-130); Glucose 93 mg/dL (65-115); Osmolality Calculated 276 mOsm/kg (285-295); Sodium 134 mmol/L (136-145); Total Bilirubin 0.7 mg/dL (0.15-1.2); Total Protein 6.6 g/dL (6.6-8.7)
[2025-01-04 05:35] LABS: Anion Gap 17.3 (5-19); Potassium 4.3 mmol/L (3.5-5.1)
[2025-01-04] MEDS: levETIRAcetam 1,000 MG/100 ML PREMIX 400 MG IV (06:25)
[2025-01-04] MEDS: heparin 5,000 unit/mL INJ 1 mL 5000 UNIT SUBCUT (06:26)
[2025-01-04] MEDS: docusate sodium 100 mg Capsule PO (09:29)
[2025-01-04] MEDS: multivitamin therapeutic Tablet 1 TAB PO (09:30)
[2025-01-04] MEDS: folic acid 1 mg Tablet PO (09:30)
[2025-01-04] MEDS: thiamine 100 mg Tablet PO (09:30)
[2025-01-04] MEDS: PHENobarbital 32.4 mg Tablet PO ×2 (09:32→18:56)
[2025-01-04] MEDS: metoprolol tartrate 25 mg Tablet PO ×2 (09:32→19:49)
--- NOTE | 2025-01-04 10:36 | P.DS_ITS ---
Discharge Providers Date of Admission: 12/31/24 18:20 Date of Discharge: January 04, 2025 Attending Provider at Admission: Lamberto Salazar MD Attending Provider at Discharge: Shashi Bell DO Diagnoses at Discharge Discharge Diagnosis (1) Alcoholic intoxication: Status: Inactive (2) Intentional overdose: Status: Acute (3) Suicidal ideation: Status: Acute (4) Alcohol withdrawal: Status: Acute (5) Depression: Status: Acute (6) Alcohol withdrawal seizure: Status: Acute (7) Alcohol use disorder, severe, dependence: Status: Acute Reason for Visit Reason for Visit: SI attempt Brief History: Isidro Hernandez is a 39 year old male with past medical history of possible traumatic brain injury, alcohol use, alcohol withdrawal seizures complicated by mechanical ventilation presents to the ER today for the third day from a hotel locally for alcohol intoxication. As per the ER physician patient was brought today with concerns for suicidal ideation. Patient states he consumes alcohol to prevent him from going into seizures. Today he took at least 15 tablets of 10 mg of propranolol with intentions to kill himself. Patient states he is from [place] and is not currently down to [place] where he is helping his grandparents in their farm. States he has been having frequent episodes of vomiting with 2 episodes of vomiting in the ER. Denies any headache but does complain of jitteriness, tiredness. In the ER he was found to have be tachycardic with heart rate 115, saturating well on room air, lactate of 6.2, blood alcohol level of 409 Hospital Course Hospital Course Patient was admitted to the ICU for close monitoring of heart rate. Beta and calcium channel blockers were held. Patient had 2 withdrawal seizures on Monday 01/01. He was placed on Keppra and given phenobarbital and was on the CIWA protocol. Patient is with been without any seizure since Saturday. He is finishing up a course of phenobarbital and otherwise remains on CIWA protocol. He is very anxious and due to his suicide attempt he will be transferred to inpatient neuropsych with Dr. Puente excepting Physical Exam Narrative: General: No acute distress, AO x3, drowsy but awakens fairly easily not tremulous HEENT: PERRLA, pupils bilaterally equal and reactive Chest: Clear bilaterally no wheezes rales or rhonchi CVS: S1-S2 regular, no murmurs, no tachycardia, no gallops, no rubs Abdomen: Soft, nontender, no organomegaly, bowel sounds present Neuro: No focal deficits, no facial deformity, AO x3, equal bilaterally Urinary Catheter Management: Tripp: Cath Placed During This Visit: yes, but has since been removed by the nurse Reason for Continuing Indwelling Catheter: Accurate Measurement of Urinary Output in Critically Ill Patients Urinary Catheter Date of Insertion: 12/31/24 Urinary Catheter Time of Insertion: 23:00 Date Urinary Catheter Removed: 01/03/25 Time Urinary Catheter Discontinued: 01:01 Discharge Data Studies Completed and Pending Completed Studies During Hospitalization Category Date Time Status CT abdomen pelvis w con* [id number] Stat Cat Scan 12/31/24 17:37 Completed CV. echo complete* [id number] Routine Ultrasound 12/31/24 19:19 Completed Pending at discharge Category Date Time Status Complete Blood Count w/Auto AM LABS Lab 01/04/25 04:00 Ordered Radiology Impressions Abdomen/Pelvis CT 12/31/24 17:37 IMPRESSION: 1. No bowel obstruction or inflammatory process associated with the bowel. 2. No free air or significant free fluid in the abdomen or pelvis. 3. No evidence of appendicitis. 4. Hepatic steatosis. Laboratory Results WBC 7.90 10^3/uL (3.29-11.43) 01/03/25 04:32 RBC 4.91 10^6/uL (3.85-5.65) 01/03/25 04:32 Hgb 14.80 g/dL (11.27-16.99) 01/03/25 04:32 Hct 43.9 % (37-53) 01/03/25 04:32 MCV 89.4 fl (82-101) 01/03/25 04:32 MCH 30.1 pg (27-33) 01/03/25 04:32 MCHC 33.7 g/dL (30-55) 01/03/25 04:32 RDW 11.9 % (12.1-15.1) L 01/03/25 04:32 Plt Count 59 10^3/cmm (157-399) L 01/03/25 04:32 MPV 11.0 fL (7.4-10.4) H 01/03/25 04:32 Neut % (Auto) 66.6 % 01/03/25 04:32 Lymph % (Auto) 18.2 % 01/03/25 04:32 [place] % (Auto) 9.9 % 01/03/25 04:32 Eos % (Auto) 4.1 % 01/03/25 04:32 Baso % (Auto) 0.6 % 01/03/25 04:32 Neut # (Auto) 5.26 10^3/uL (1.8-7.7) 01/03/25 04:32 Lymph # (Auto) 1.4 10^3/uL (0.8-4.8) 01/03/25 04:32 [place] # (Auto) 0.8 10^3/uL (0.2-0.9) 01/03/25 04:32 Eos # (Auto) 0.3 10^3/uL (0.0-0.8) 01/03/25 04:32 Baso # (Auto) 0.1 10^3/uL (0.0-0.1) 01/03/25 04:32 Nucleated RBC % (auto) 0 % 01/03/25 04:32 Nucleated RBCs # 0.0 /100WBC 01/03/25 04:32 PT 12.50 SECONDS (12.1-14.9) 12/31/24 16:00 INR 0.88 (0.8-1.2) 12/31/24 16:00 Specimen Type Arterial 12/31/24 16:46 Sample Site Radial, left 12/31/24 16:46 ABG pH 7.61 (7.35-7.45) H* 12/31/24 16:46 ABG pCO2 28.3 mmHg (35-45) L 12/31/24 16:46 ABG pO2 104.0 mmHg (80.0-100.0) H 12/31/24 16:46 ABG PO2/FiO2 Ratio 495 12/31/24 16:46 ABG HCO3 28.3 mmol/L (22-26) H 12/31/24 16:46 ABG O2 Saturation 99.2 12/31/24 16:46 ABG Base Excess 7.8 mmol/L (-2.0-2.0) H 12/31/24 16:46 Sunny Test Pos 12/31/24 16:46 A-a O2 Gradient 1.1 mmHg (5-10) L 12/31/24 16:46 Hematocrit 52.4 % (42-52) H 12/31/24 16:46 Hgb O2 Saturation 98.1 % (95-100) 12/31/24 16:46 Carboxyhemoglobin 1.0 %THgb (0.4-20.1) 12/31/24 16:46 Methemoglobin 0.2 % (0.4-1.5) L 12/31/24 16:46 Total Hemoglobin 17.1 g/dL (14-18) 12/31/24 16:46 Sodium 136.0 mmol/L (131-143) 12/31/24 16:46 Potassium 3.5 mmol/L (3.5-5.0) 12/31/24 16:46 Glucose 240.0 mg/dL (70-115) H 12/31/24 16:46 Ionized Calcium 0.9 mmol/L (1.1-1.4) L 12/31/24 16:46 O2 Delivery Device Room air 12/31/24 16:46 FiO2 21.0 % 12/31/24 16:46 Music Therapy Teacher ID [email or web address] 12/31/24 16:46 Sodium 134 mmol/L (136-145) L 01/04/25 03:52 Potassium 4.3 mmol/L (3.5-5.1) 01/04/25 03:52 Chloride 97 mmol/L (98-107) L 01/04/25 03:52 Carbon Dioxide 24 mmol/L (22-29) 01/04/25 03:52 Anion Gap 17.3 (5-19) 01/04/25 03:52 BUN 9 mg/dL (6-20) 01/04/25 03:52 Creatinine 0.7 mg/dL (0.7-1.2) 01/04/25 03:52 GFR Calculation 126.9 mL/min (90-130) 01/04/25 03:52 Glucose 93 mg/dL (65-115) 01/04/25 03:52 POC Glucose 111 mg/dL (70-110) H 01/03/25 21:22 Estimat Average Glucose 108 12/31/24 16:00 Hemoglobin A1c 5.4 % (4.0-6.0) 12/31/24 16:00 Calculated Osmolality 276 mOsm/kg (285-295) L 01/04/25 03:52 Lactic Acid 6.2 mmol/L (0.5-2.2) H* 12/31/24 16:00 Lactic Acid (Sepsis) 3.8 mmol/L (0.5-2.2) H 12/31/24 19:56 Calcium 8.7 mg/dL (8.5-10.5) 01/04/25 03:52 Phosphorus 2.2 mg/dL (2.5-4.5) L 01/03/25 04:32 Magnesium 1.6 mg/dL (1.7-2.3) L 01/03/25 04:32 Iron 129 ug/dL (59-158) 12/31/24 16:00 TIBC 258 mcg/dl 12/31/24 16:00 % Saturation 50.0 % (20-50) 12/31/24 16:00 Unsat Iron Binding 129 ug/dL (112-347) 12/31/24 16:00 Total Bilirubin 0.7 mg/dL (0.15-1.2) 01/04/25 03:52 AST 84 U/L (0-40) H 01/04/25 03:52 ALT 128 U/L (0-41) H 01/04/25 03:52 Alkaline Phosphatase 72 U/L (40-130) 01/04/25 03:52 Total Protein 6.6 g/dL (6.6-8.7) 01/04/25 03:52 Albumin 4.0 g/dL (3.5-5.2) 01/04/25 03:52 Globulin 2.6 g/dL (1.3-4.6) 01/04/25 03:52 Triglycerides 40 mg/dL (0-150) 01/01/25 03:47 Cholesterol 162 mg/dL (0-200) 01/01/25 03:47 LDL Cholesterol, Calc 65 mg/dL (50-129) 01/01/25 03:47 HDL Cholesterol 89 mg/dL (60-100) 01/01/25 03:47 LDL/HDL Ratio 0.73 RATIO (0.00-3.22) 01/01/25 03:47 Cholesterol/HDL Ratio 1.82 mg/dL (1.0-5.00) 01/01/25 03:47 Vitamin B12 1258 pg/mL (232-1245) H 12/31/24 16:00 Folate > 20.0 ng/mL (4.5-32.2) 01/01/25 03:47 Procalcitonin 0.12 ng/mL (0-0.5) 01/01/25 03:47 TSH 0.74 uIU/mL (0.27-4.20) 12/31/24 16:00 Urine Color Yellow (Yellow) 12/31/24 20:20 Urine Appearance Clear (CLEAR) 12/31/24 20:20 Urine pH 8.0 (5-7) A 12/31/24 20:20 Ur Specific [place] 1.037 (1.005-1.030) H 12/31/24 20:20 Urine Protein 1+ (Negative) A 12/31/24 20:20 Urine Glucose (UA) Trace (Normal) H 12/31/24 20:20 Urine Ketones 1+ (Negative) H 12/31/24 20:20 Urine Blood Trace (Negative) A 12/31/24 20:20 Urine Nitrate Negative (Negative) 12/31/24 20:20 Urine Bilirubin Negative (Negative) 12/31/24 20:20 Urine Urobilinogen 1.0 mg/dL (Negative) 12/31/24 20:20 Ur Leukocyte Esterase Negative (Negative) 12/31/24 20:20 Urine RBC 0-2 /hpf (0-2) 12/31/24 20:20 Urine WBC 0-5 /hpf (0-5) 12/31/24 20:20 Ur Squamous Epith Cells 0-5 /hpf (0-5) 12/31/24 20:20 Amorphous Sediment Not Reportable 12/31/24 20:20 Urine Bacteria None seen /hpf (NONE) 12/31/24 20:20 Hyaline Casts 0-4 /lpf H 12/31/24 20:20 Gastric Occult Blood Positive (Negative) H 12/31/24 17:14 Digoxin 0.4 ng/mL (0.6-1.2) L 12/31/24 16:00 Salicylates < 0.3 mg/dL (3-10) L 12/31/24 16:00 Urine Opiates Screen Negative ng/mL (Negative) 12/31/24 20:20 Acetaminophen < 5.0 ug/mL (10-30) L 12/31/24 16:00 Ur Barbiturates Screen Negative ng/mL (Negative) 12/31/24 20:20 Ur Phencyclidine Scrn Negative ng/mL (Negative) 12/31/24 20:20 Ur Amphetamines Screen Negative ng/mL (Negative) 12/31/24 20:20 Phenobarbital 20.9 ug/mL (10-30) 01/03/25 04:32 U Benzodiazepines Scrn Negative ng/mL (Negative) 12/31/24 20:20 Urine Cocaine Screen Negative ng/mL (Negative) 12/31/24 20:20 U Marijuana (THC) Screen Negative ng/mL (Negative) 12/31/24 20:20 Ethyl Alcohol 409 mg/dL (0-10) H* 12/31/24 16:00 Vitals Last Vital Signs Temp 97.8 F 01/04/25 10:08 Pulse 79 01/04/25 10:08 Resp 16 01/04/25 10:08 BP 128/90 01/04/25 09:00 Pulse Ox 95 01/04/25 10:08 O2 Del Method Room Air 01/04/25 02:00 O2 Flow Rate 2 01/03/25 20:43 Discharge Plan Discharge Patient Disposition: Xfer Psychiatric Hosp Condition: Stable Prescriptions: No Action No Known Home Medications Discharge Diet: Advance as tolerated Discharge Activity: Increase activity as tolerated Patient Instructions: Opioid Safety Discharge Attestations Time Spent in Discharge Care*: less than 30 min Quality Metrics Clinical Quality Measures [ No reported AMI, CVA or VTE this stay] Coding Level of Care Code Acute Code for g Fwd Diagnoses Alcoholic intoxication F10.929 Intentional overdose T50.902A Suicidal ideation R45.851 Alcohol withdrawal F10.939 Depression F32.A Alcohol withdrawal seizure F10.939; R56.9 Alcohol use disorder, severe, dependence F10.20
--- NOTE | 2025-01-04 14:37 | P.NPUPN_ITS ---
Subjective NPU 2 Subjective: Patient presenting today having been transferred to the neuropsychiatric unit for ongoing treatment for his overdose. He continues to be quite lethargic from medications given in the ICU and we discussed making sure that we were backing off of the medications to make sure we are able to focus more on his issues of lethality and depression than his alcohol withdrawal at this point. Mental Status Exam 2 MSE Comments: Is a well-nourished well-developed white male in hospital gown with limited grooming and eye contact. No abnormal movements except for continued significant psychomotor retardation. Somewhat cooperative with exam in mild distress. Speech was limited and decreased rate and volume. Mood described as okay, affect significantly subdued. Thought process linear. Thought content: Patient did not report suicidal or homicidal ideation but was needing to be constantly awoken to speak. There were no delusions reported or noted he did not report any auditory visual hallucination. Attention and concentration were impaired and memory was unable to be obtained but none were formally tested. He is arousable and oriented to person and place. Insight, judgment and impulse control are impaired. Vitals/I&O/Wt Last Vital Signs Temp 97.8 F 01/04/25 10:08 Pulse 79 01/04/25 10:08 Resp 16 01/04/25 10:08 BP 128/90 01/04/25 09:00 Pulse Ox 95 01/04/25 10:08 O2 Del Method Room Air 01/04/25 02:00 O2 Flow Rate 2 01/03/25 20:43 01/03/25 01/04/25 01/04/25 22:59 06:59 14:59 Intake Total 500 / 1455 780 / 2235 480 / 480 Output Total 250 / 1550 500 / 2050 Balance 250 / -95 280 / 185 480 / 480 Weight last 48 hrs Weight 85.254 kg Weight 84.7 kg Weight 84.7 kg Physical Exam 2 Urinary Catheter Management: Tripp: Cath Placed During This Visit: yes, but has since been removed by the nurse Reason for Continuing Indwelling Catheter: Accurate Measurement of Urinary Output in Critically Ill Patients Urinary Catheter Date of Insertion: 12/31/24 Urinary Catheter Time of Insertion: 23:00 Date Urinary Catheter Removed: 01/03/25 Time Urinary Catheter Discontinued: 01:01 Data NPU 01/03/25 04:32 01/04/25 03:52 A&P Assessment and plan (1) Alcoholic intoxication: (2) Intentional overdose: (3) Suicidal ideation: (4) Alcohol withdrawal: (5) Depression: (6) Alcohol withdrawal seizure: (7) Alcohol use disorder, severe, dependence: Plan This is a 39-year-old male with depression, significant alcohol use disorder who presented to the hospital with a blood alcohol level of 409 admitted with suicidal ideation with continued difficulty with addiction. Plan: 1. We will explore medications for depression and anxiety. 2. Continue every 15 minute checks for safety. 3. Transfer to neuropsychiatric unit. 4. Encourage sober living treatment after discharge at the highest level of care to which he is willing to commit. 5. Continue CIWA protocol 6. Will gather collateral information. 7. Evaluate against the backdrop of 96-hour hold. PDMP PDMP Reviewed: Not Reviewed Involuntary Hold Information 2 Hold Status: Date/Time Hold Expires: 01/06/25 @ 1630 Attestations NPU 2 Medical Necessity Statement*: Inpatient hospitalization is medically necessary and the clinically appropriate intervention at this time. We will monitor medications and make changes as indicated. Likely length of stay is 2-5 days. Coding Level of Care Code Acute Code for [facility] Fwd Diagnoses Alcoholic intoxication F10.929 Intentional overdose T50.902A Suicidal ideation R45.851 Alcohol withdrawal F10.939 Depression F32.A Alcohol withdrawal seizure F10.939; R56.9 Alcohol use disorder, severe, dependence F10.20
--- NOTE | 2025-01-04 15:54 | PC.NURSE ---
Called security and house sup patient taken to NPU at 1555 via w/c with mentioned staff.
--- NOTE | 2025-01-04 17:18 | PC.NURSE ---
Admission: Pt was admitted into the ICU after presenting to the ER for intentional OD by taking 15 tablets of his 10mg propranolol. The pt transferred to the NPU via wheelchair accompanied by house nurse and security. Pt placed on 96 hour hold and CIWA protocols while in ICU w/ orders continuing. The pt answered assessment questions, however took several minutes of thinking before producing an answer. The pt stopped talking several times to inject about the temperature of the room (this issue was resolved). When asked about why he was admitted/main complaint, the pt stated I overdosed because there is no hope . This nurse asked about triggers/events that could have caused these feelings and the pt replied Do we have to do these questions, I just need an ice water to drink . Pt does not elaborate or give in depth answers to the assessment questions but however is persistent about showering/shaving. The pt stated 6/10 body ache pain due to sitting in the bed for five days and not moving . Pt is tearful throughout the assessment w/ a flat affect. Pt requests included nicotine gum, room temp change, shaving, clipping his fingernails, and recieving shower supplies and all needs were met. Pt now in dayroom eating dinner. RR even and unlabored.
[2025-01-04] MEDS: hyDROXYzine 25 mg Capsule 50 MG PO (19:48)
[2025-01-04] MEDS: trazodone 50 mg Tablet PO (19:49)
[2025-01-04] MEDS: haloperidol 5 mg Tablet PO (22:59)
--- NOTE | 2025-01-04 23:00 | PC.NURSE ---
PATIENT CAME TO DESK REQUESTING MEDS FOR ANXIETY . ZYPREXA ZYDIS 5MG OFFERED, BUT PATIENT REFUSED. HALDOL 5MG GIVEN.
[2025-01-05] VITALS: RESP 16
--- NOTE | 2025-01-05 00:15 | PC.NURSE ---
pt finally resting vitals not done nurse aware resp are at 16
[2025-01-05] MEDS: haloperidol 5 mg Tablet PO ×3 (03:05→11:42)
--- NOTE | 2025-01-05 03:06 | PC.NURSE ---
when doing rounds on pt, pt was found sitting on knees in the praying positions when asked pt if he was okay pt say that he wasnt and that he need to leave so he could take care of his family, pt stated he has a 11 year old that needs his daddy, the he has a 18 year old that is non verbal autistic that he cares for, and some one from a hotel has his things and he doesnt know if that person still does, this telegraphic typewriter repairer said to pt that she would pass it along in report to dayshift due to it being in the middle of the night. pt followed this telegraphic typewriter repairer to nurse station and nurse was able to give pt some meds for his anxiety
--- NOTE | 2025-01-05 03:07 | PC.NURSE ---
patient up to desk requesting anxiety med haldol by name. Haldol 5mg given.
[2025-01-05 04:00] VITALS: RESP 16
[2025-01-05 08:00] VITALS: BP 128/94; PULSE 99; RESP 18; O2SAT 97
[2025-01-05] MEDS: multivitamin therapeutic Tablet 1 TAB PO (08:14)
[2025-01-05] MEDS: folic acid 1 mg Tablet PO (08:14)
[2025-01-05] MEDS: thiamine 100 mg Tablet PO (08:14)
[2025-01-05] MEDS: metoprolol tartrate 25 mg Tablet PO ×2 (08:14→19:59)
[2025-01-05] MEDS: docusate sodium 100 mg Capsule PO (08:14)
[2025-01-05] MEDS: nicotine 2 mg Gum BUCCAL ×2 (10:51→11:18)
[2025-01-05 12:00] VITALS: BP 126/87; PULSE 92; RESP 16; TEMP 36.7
[2025-01-05] MEDS: benztropine 1 mg Tablet PO (13:42)
[2025-01-05] MEDS: ibuprofen 600 mg Tablet PO (13:51)
--- NOTE | 2025-01-05 14:11 | PC.NURSE ---
Pt. came to nurses station saying he could not walk and was shaking. V/S taken, Cogentin given along with ibuprofen. Signee had vistaril for anxiety and pt. stated he did not take vistaril when asked what he took for anxiety he stated Ativan. Dr. Puente informed. No new orders given.
[2025-01-05] MEDS: chlordiazePOXIDE 10 mg Capsule 20 MG PO (14:47)
--- NOTE | 2025-01-05 14:55 | P.NPUPN_ITS ---
Subjective NPU 2 Subjective: Patient continues to present with isolation and decreased energy per staff reports and direct observation. He presents giving no insight into his suicide attempt and then saying something strange about his daughter trying the same way. He continues to seem to be seeking benzodiazepines as he reported that the best things for him are phenobarbital, diazepam and Ativan. We discussed that these would be very risky medications given his addiction. We discussed the 21- day hold given his lack of participation and no apparent insight into his suicide attempt. Mental Status Exam 2 MSE Comments: Is a well-nourished well-developed white male in hospital gown with limited grooming and eye contact. No abnormal movements except for continued significant psychomotor retardation. Somewhat cooperative with exam in mild distress. Speech was limited and decreased rate and volume. Mood described as okay, affect significantly subdued. Thought process linear. Thought content: Patient did not report suicidal or homicidal ideation but was needing to be constantly awoken to speak. There were no delusions reported or noted he did not report any auditory visual hallucination. Attention and concentration were impaired and memory was unable to be obtained but none were formally tested. He is arousable and oriented to person and place. Insight, judgment and impulse control are impaired. Vitals/I&O/Wt Last Vital Signs Temp 98.1 F 01/05/25 12:00 Pulse 92 01/05/25 12:00 Resp 16 01/05/25 12:00 BP 126/87 01/05/25 12:00 Pulse Ox 97 01/05/25 08:00 O2 Del Method Room Air 01/05/25 12:00 O2 Flow Rate 2 01/03/25 20:43 01/04/25 01/05/25 01/05/25 22:59 06:59 14:59 Intake Total 34.237 / 514.237 Balance 34.237 / 514.237 Weight last 48 hrs Weight 85.254 kg Physical Exam 2 Urinary Catheter Management: Tripp: Cath Placed During This Visit: yes, but has since been removed by the nurse Reason for Continuing Indwelling Catheter: Accurate Measurement of Urinary Output in Critically Ill Patients Urinary Catheter Date of Insertion: 12/31/24 Urinary Catheter Time of Insertion: 23:00 Date Urinary Catheter Removed: 01/03/25 Time Urinary Catheter Discontinued: 01:01 Data NPU 01/03/25 04:32 01/04/25 03:52 A&P Assessment and plan (1) Alcoholic intoxication: (2) Intentional overdose: (3) Suicidal ideation: (4) Alcohol withdrawal: (5) Depression: (6) Alcohol withdrawal seizure: (7) Alcohol use disorder, severe, dependence: Plan This is a 39-year-old male with depression, significant alcohol use disorder who presented to the hospital with a blood alcohol level of 409 admitted with suicidal ideation with continued difficulty with addiction. Plan: 1. We will explore medications for depression and anxiety. Moved to Librium 25 mg p.o. 3 times daily for couple days while we work on his withdrawal. 2. Continue every 15 minute checks for safety. 3. Transfer to neuropsychiatric unit. 4. Encourage sober living treatment after discharge at the highest level of care to which he is willing to commit. 5. Continue CIWA protocol we will discontinue and go to Librium taper. 6. Will gather collateral information. 7. Evaluate against the backdrop of 96-hour hold. File for 21-day hold. PDMP PDMP Reviewed: Not Reviewed Involuntary Hold Information 2 Hold Status: Legal Status: 96 Hour Hold Date/Time Hold Expires: 01/06/25 @ 1630 Attestations NPU 2 Medical Necessity Statement*: Inpatient hospitalization is medically necessary and the clinically appropriate intervention at this time. We will monitor medications and make changes as indicated. Likely length of stay is 2-5 days. Will have an extension with 21- day filed. Coding Level of Care Code Acute Code for [facility] Fwd Diagnoses Alcoholic intoxication F10.929 Intentional overdose T50.902A Suicidal ideation R45.851 Alcohol withdrawal F10.939 Depression F32.A Alcohol withdrawal seizure F10.939; R56.9 Alcohol use disorder, severe, dependence F10.20
[2025-01-05 16:00] VITALS: BP 101/65; PULSE 87; RESP 22; TEMP 36.6
[2025-01-05 19:18] VITALS: BP 140/96; PULSE 120; RESP 22; TEMP 37.2; O2SAT 97
[2025-01-05] MEDS: trazodone 50 mg Tablet PO ×2 (19:59→23:15)
[2025-01-05] MEDS: acetaminophen 325 mg Tablet 650 MG PO (19:59)
--- NOTE | 2025-01-05 20:32 | PC.NURSE ---
pt pulled sheets off of his bed and is currently laying on mattress with nothing on it nurse is aware
[2025-01-06] VITALS (11 sets, daily range): BP systolic 105–147; BP diastolic 64–95; PULSE 79–133; RESP 16–22; TEMP 36.4–37.1; O2SAT 96–98
[2025-01-06] MEDS: hyDROXYzine 25 mg Capsule 50 MG PO ×3 (02:27→18:19)
[2025-01-06] MEDS: OLANZapine 5 mg ODT PO (02:27)
--- NOTE | 2025-01-06 02:36 | PC.NURSE ---
PATIENT CAME TO THE DESK REQUESTING TO GO THE THE MEDICAL FLOOR . PATIENT STATES HE CAN'T WALK, THAT HE IS WEAK. HE WANTS TO GO TO THE ER. OFF GOING DAY SHIFT REPORTED PATIENT STATING HE NEEDED A WHEELCHAIR BECAUSE HE COULDN'T WALK. WHEN TOLD HE COULD NOT HAVE A WHEELCHAIR BECAUSE HE WAS ABLE TO WALK FINE, HE ASKED FOR A WALKER. PATIENT HAS ASKED FOR LIBRIUM SEVERAL TIMES THIS NIGHT. PATIENT WAS GIVEN A ONE TIME DOSE AROUND 1445 YESTERDAY. PATIENT INSISTS THAT IT WAS NOT JUST FOR ONE TIME. PATIENT STATED DR CORADO TOLD HIM HE WOULD BE GETTING SAID MED 3-4 TIMES A DAY. PATIENT WAS EDUCATED THAT THE MED WAS A ONE TIME DOSE, AND IF DR CORADO WANTED HIM TO HAVE IT, HE WOULD PUT THE ORDER IN. PATIENT STARTED BREATHING HEAVILY AND STATED HE WAS GETTING WEAK AGAIN. PATIENT WAS OFFERED VISTARIL 50MG AND ZYPREXA 5MG BOTH FOR ANXIETY AND INSTRUCTED TO PRACTICE COPING EXERCISES SUCH DEEP SLOW BREATHING, AND GETTING UP DURING THE DAY AND GOING TO ALL THE GROUPS NOT JUST ONE. THAT SLEEPING ALL DAY WILL MAKE IT HARD AT NIGHT TO REST THE RIGHT WAY. PATIENT WAS EDUCATED THAT HIS ALCOHOL USE DIDN'T HAPPEN OVERNIGHT, AND THAT RECOVERY WILL TAKE TIME. THAT HE HAS TO FIGURE OUT THE COPING STRATEGIES THAT WORK BEST FOR HIM.
--- NOTE | 2025-01-06 02:53 | PC.NURSE ---
VS AT 0227, VITAL SIGN OBTAINED HR:133, R:22, BP:147/98, O2:97
[2025-01-06] MEDS: chlordiazePOXIDE 25 mg Capsule PO (03:41)
--- NOTE | 2025-01-06 04:04 | PC.NURSE ---
patient behavior Dr Puente notified that patient has come up to the desk several times this night wanting to go to the medical floor so he could get checked out . Patient has wanted a wheelchair or a walker at times. and about patient stating weakness. Dr Puente gave order for a one time dose of Librium 25mg. Patient given med as ordered. Patient noted WITHOUT tremor or weakness while walking back to his room. Dr Puente came into unit and was notified of this patients actions after med was given.
[2025-01-06] MEDS: PHENobarbital 32.4 mg Tablet PO (08:06)
[2025-01-06] MEDS: multivitamin therapeutic Tablet 1 TAB PO (08:06)
[2025-01-06] MEDS: folic acid 1 mg Tablet PO (08:06)
[2025-01-06] MEDS: thiamine 100 mg Tablet PO (08:06)
[2025-01-06] MEDS: docusate sodium 100 mg Capsule PO ×2 (08:06→17:44)
[2025-01-06] MEDS: metoprolol tartrate 25 mg Tablet PO (08:06)
[2025-01-06] MEDS: nicotine 2 mg Gum BUCCAL ×2 (08:23→17:57)
--- NOTE | 2025-01-06 09:12 | PC.NURSE ---
pt is wanting to go AMA today explained to pt that his hold is not up until 1630 today and that I would speak with doctor about his wanting to go home pt is requesting to be put back on his normal medication regiment that he states has kept him sober for 6 months which is longer than anytime since the brain injury 4 years ago. pt states he takes klonopin,vistaril, baclofen, propanolol and trazodone at night. pt states he was only on a week galvin and could not get admitted to the hospital for help so he states his boss told him to lie about taking a bottle of propanolol so he could get admitted.
[2025-01-06] MEDS: cloNIDine 0.1 mg Tablet 0.2 MG PO ×2 (14:04→20:38)
[2025-01-06] MEDS: NON-FORMULARY MEDICATION 1 EACH XX (16:46)
--- NOTE | 2025-01-06 17:58 | P.NPUPN_ITS ---
Subjective NPU 2 Subjective: Patient presented today reporting that things are going okay. He identified that he was probably not functioning and the best way from the standpoint of his approaching his recovery and treatment and made his appoint today to be out of his room and engaging in the milieu. We discussed his medications and he had many requests as to what he felt worked well for him even though he had not been taking his medication. We discussed the risks, benefits and alternatives of making some of these changes and he understood and agreed to proceed as is documented in this note. He denied any side effects to his medication. We discussed the fact that his 21-day hold have been filed and that he would not necessarily need to be there for 21 days but that we did not feel he was ready to leave today when his 96-hour hold would . Mental Status Exam 2 MSE Comments: This is a well-nourished well-developed white male in hospital scrubs with improving grooming and eye contact. No abnormal movements except for decreasing and improving psychomotor retardation. More cooperative with exam in mild distress. Speech was increased and productivity and more normal and rate and volume. Mood described as better I got out of my room and went to groups, affect congruent and less subdued. Thought process linear. Thought content: Patient denied suicidal or homicidal ideation, there were no delusions reported or noted, and he did not report any auditory visual hallucination. Attention and concentration were improving though he reports is always challenging secondary to a previous TBI and memory was appearing more reliable, but none were formally tested. He is alert and oriented x 3. Insight, judgment and impulse control are all limited but improving. Vitals/I&O/Wt Last Vital Signs Temp 98.0 F 01/06/25 16:00 Pulse 106 H 01/06/25 16:00 Resp 17 01/06/25 16:00 BP 126/87 01/06/25 16:00 Pulse Ox 97 01/06/25 16:00 O2 Del Method Room Air 01/06/25 16:00 O2 Flow Rate 2 01/03/25 20:43 Physical Exam 2 Urinary Catheter Management: Tripp: Cath Placed During This Visit: yes, but has since been removed by the nurse Reason for Continuing Indwelling Catheter: Accurate Measurement of Urinary Output in Critically Ill Patients Urinary Catheter Date of Insertion: 12/31/24 Urinary Catheter Time of Insertion: 23:00 Date Urinary Catheter Removed: 01/03/25 Time Urinary Catheter Discontinued: 01:01 Data NPU 01/03/25 04:32 01/04/25 03:52 A&P Assessment and plan (1) Alcoholic intoxication: (2) Intentional overdose: (3) Suicidal ideation: (4) Alcohol withdrawal: (5) Depression: (6) Alcohol withdrawal seizure: (7) Alcohol use disorder, severe, dependence: Plan This is a 39-year-old male with depression, significant alcohol use disorder who presented to the hospital with a blood alcohol level of 409 admitted with suicidal ideation with continued difficulty with addiction. Plan: 1. We will explore medications for depression and anxiety. Moved to Librium 25 mg p.o. 3 times daily for couple days while we work on his withdrawal. Restarting some home medications including clonidine 0.2 mg p.o. twice daily and allowing him to take Haldol at bedtime. 2. Continue every 15 minute checks for safety. 3. Transfer to neuropsychiatric unit. 4. Encourage sober living treatment after discharge at the highest level of care to which he is willing to commit. 5. Continue CIWA protocol we will discontinue and go to Librium taper. 6. Will gather collateral information. 7. Evaluate against the backdrop of 96-hour hold. Filed for 21-day hold. PDMP PDMP Reviewed: Not Reviewed Involuntary Hold Information 2 Hold Status: Legal Status: 96 Hour Hold Date/Time Hold Expires: 01/06/25 @ 1630 Attestations NPU 2 Medical Necessity Statement*: Inpatient hospitalization is medically necessary and the clinically appropriate intervention at this time. We will monitor medications and make changes as indicated. Likely length of stay is 2-5 days. Will have an extension with 21- day filed. Coding Level of Care Code Acute Code for [facility] Fwd Diagnoses Alcoholic intoxication F10.929 Intentional overdose T50.902A Suicidal ideation R45.851 Alcohol withdrawal F10.939 Depression F32.A Alcohol withdrawal seizure F10.939; R56.9 Alcohol use disorder, severe, dependence F10.20
[2025-01-06] MEDS: trazodone 50 mg Tablet PO (21:34)
[2025-01-06] MEDS: propranolol 20 mg Tablet 10 MG PO (21:35)
--- NOTE | 2025-01-06 23:55 | PC.NURSE ---
pt sleeping resp 16 nurse aware
[2025-01-07] VITALS (7 sets, daily range): BP systolic 105–119; BP diastolic 69–82; PULSE 80–95; RESP 17–19; TEMP 36.3–36.9; O2SAT 96–99
[2025-01-07] MEDS: haloperidol 5 mg Tablet PO (01:14)
[2025-01-07] MEDS: trazodone 50 mg Tablet PO ×2 (01:14→22:17)
[2025-01-07] MEDS: hyDROXYzine 25 mg Capsule 50 MG PO ×3 (02:11→22:18)
[2025-01-07] MEDS: nicotine 2 mg Gum BUCCAL ×4 (06:01→17:55)
[2025-01-07] MEDS: cloNIDine 0.1 mg Tablet 0.2 MG PO ×3 (07:52→22:18)
[2025-01-07] MEDS: multivitamin therapeutic Tablet 1 TAB PO (07:52)
[2025-01-07] MEDS: PHENobarbital 32.4 mg Tablet PO (07:52)
[2025-01-07] MEDS: thiamine 100 mg Tablet PO (07:53)
[2025-01-07] MEDS: folic acid 1 mg Tablet PO (07:53)
[2025-01-07] MEDS: docusate sodium 100 mg Capsule PO ×2 (07:53→17:12)
[2025-01-07] MEDS: metoprolol tartrate 25 mg Tablet PO ×2 (08:34→22:17)
[2025-01-07] MEDS: NON-FORMULARY MEDICATION 1 EACH XX (08:34)
[2025-01-07] MEDS: propranolol 20 mg Tablet 10 MG PO ×2 (09:33→22:17)
--- NOTE | 2025-01-07 17:47 | P.NPUPN_ITS ---
Subjective NPU 2 Subjective: Patient presented today reporting that he wanted to complete his increase to clonidine 0.2 mg p.o. 3 times daily. We discussed the fact that his blood pressure is marginal as far as how he is managing the medication. In general his blood pressures have been above 105/60 but there is concern about this as a regular medication at this dose given the fact that he will not be regularly monitoring his blood pressure after discharge. So we discussed the fact that this may not be what he is discharged on. He continued to be fairly somatically preoccupied and less focused on really facing the reality of his choice. We discussed the fact that his 21-day hold hearing is tomorrow and we will have to discuss what our plans are with that. He denied any side effects to his medications. He continues to be resistant to basic antidepressants. Mental Status Exam 2 MSE Comments: This is a well-nourished well-developed white male in hospital scrubs with improving grooming and eye contact. No abnormal movements except for decreasing and improving psychomotor retardation. More cooperative with exam in mild distress. Speech was increased and productivity and more normal and rate and volume. Mood described as better I got out of my room and went to groups, affect congruent and less subdued. Thought process linear. Thought content: Patient denied suicidal or homicidal ideation, there were no delusions reported or noted, and he did not report any auditory visual hallucination. Attention and concentration were improving though he reports is always challenging secondary to a previous TBI and memory was appearing more reliable, but none were formally tested. He is alert and oriented x 3. Insight, judgment and impulse control are all limited but improving. Vitals/I&O/Wt Last Vital Signs Temp 97.5 F L 01/07/25 16:00 Pulse 88 01/07/25 16:00 Resp 17 01/07/25 16:00 BP 110/78 01/07/25 16:00 Pulse Ox 97 01/07/25 16:00 O2 Del Method Room Air 01/07/25 16:00 O2 Flow Rate 2 01/03/25 20:43 01/07/25 14:59 Intake Total 600 / 600 Balance 600 / 600 Physical Exam 2 Urinary Catheter Management: Tripp: Cath Placed During This Visit: yes, but has since been removed by the nurse Reason for Continuing Indwelling Catheter: Accurate Measurement of Urinary Output in Critically Ill Patients Urinary Catheter Date of Insertion: 12/31/24 Urinary Catheter Time of Insertion: 23:00 Date Urinary Catheter Removed: 01/03/25 Time Urinary Catheter Discontinued: 01:01 Data NPU 01/03/25 04:32 01/04/25 03:52 A&P Assessment and plan (1) Alcoholic intoxication: (2) Intentional overdose: (3) Suicidal ideation: (4) Alcohol withdrawal: (5) Depression: (6) Alcohol withdrawal seizure: (7) Alcohol use disorder, severe, dependence: Plan This is a 39-year-old male with depression, significant alcohol use disorder who presented to the hospital with a blood alcohol level of 409 admitted with suicidal ideation with continued difficulty with addiction. Plan: 1. We will explore medications for depression and anxiety. Moved to Librium 25 mg p.o. 3 times daily for couple days while we work on his withdrawal. Restarting some home medications including clonidine 0.2 mg p.o. twice daily and allowing him to take Haldol at bedtime. increase clonidine to t.i.d and monitor bp. 2. Continue every 15 minute checks for safety. 3. Transfer to neuropsychiatric unit. 4. Encourage sober living treatment after discharge at the highest level of care to which he is willing to commit. 5. Continue CIWA protocol we will discontinue and go to Librium taper. 6. Will gather collateral information. 7. Evaluate against the backdrop of 96-hour hold. Filed for 21-day hold. PDMP PDMP Reviewed: Not Reviewed Involuntary Hold Information 2 Hold Status: Legal Status: 96 Hour Hold Date/Time Hold Expires: 01/06/25 @ 1630 Attestations NPU 2 Medical Necessity Statement*: Inpatient hospitalization is medically necessary and the clinically appropriate intervention at this time. We will monitor medications and make changes as indicated. Likely length of stay is 2-5 days. Will have an extension with 21- day filed. Coding Level of Care Code Acute Code for [facility] Fwd Diagnoses Alcoholic intoxication F10.929 Intentional overdose T50.902A Suicidal ideation R45.851 Alcohol withdrawal F10.939 Depression F32.A Alcohol withdrawal seizure F10.939; R56.9 Alcohol use disorder, severe, dependence F10.20
[2025-01-08] VITALS: BP 88/57; PULSE 89; RESP 20; TEMP 37; O2SAT 98
[2025-01-08 01:12] VITALS: BP 106/74
[2025-01-08] MEDS: nicotine 2 mg Gum BUCCAL ×3 (02:33→12:11)
[2025-01-08] MEDS: hyDROXYzine 25 mg Capsule 50 MG PO ×3 (03:54→19:17)
[2025-01-08] MEDS: haloperidol 5 mg Tablet PO ×2 (03:54→16:07)
[2025-01-08 04:00] VITALS: RESP 16
[2025-01-08] MEDS: ibuprofen 600 mg Tablet PO ×2 (05:50→16:07)
--- NOTE | 2025-01-08 05:51 | PC.ADMIT ---
Patient with c/o insomnia most of the shift. He has received several PRN without relief.He has also reported pain in his feet which he received prn IBU for this. He has been cooperative and out of his room most of this shift. He denies SI/HI/and AVH. His CIWA was 0 this shift. Vital Signs - 8 hr 01/07/25 22:18 01/08/25 00:00 01/08/25 01:12 Temperature 98.6 F Pulse Rate 89 Respiratory Rate 20 H Blood Pressure 108/70 88/57 106/74 Pulse Oximetry 98 01/08/25 04:00 Temperature Pulse Rate Respiratory Rate 16 Blood Pressure Pulse Oximetry
[2025-01-08] MEDS: folic acid 1 mg Tablet PO (08:23)
[2025-01-08] MEDS: docusate sodium 100 mg Capsule PO ×2 (08:23→17:55)
[2025-01-08] MEDS: thiamine 100 mg Tablet PO (08:23)
[2025-01-08] MEDS: multivitamin therapeutic Tablet 1 TAB PO (08:23)
[2025-01-08] MEDS: PHENobarbital 32.4 mg Tablet PO (08:23)
[2025-01-08] MEDS: metoprolol tartrate 25 mg Tablet PO ×2 (08:25→20:15)
[2025-01-08 08:26] VITALS: BP 111/75
[2025-01-08] MEDS: cloNIDine 0.1 mg Tablet 0.2 MG PO ×3 (08:26→20:16)
[2025-01-08] MEDS: propranolol 20 mg Tablet 10 MG PO ×2 (12:11→20:15)
--- NOTE | 2025-01-08 13:54 | PC.NURSE ---
off unit for court.
[2025-01-08 14:50] VITALS: BP 111/75
--- NOTE | 2025-01-08 15:56 | W.PM.NPUPNS ---
Subjective NPU Subjective: Patient presented today reporting that things are going all right. He went to his 21-day hold hearing and was placed on a hold which he excepted. We discussed the risks, benefits and alternatives of initiating Remeron 15 mg p.o. nightly and he understood and agreed to proceed as is documented in this note. We discussed hoping that this would both assist him in sleeping and help with his depression. Mental Status Exam MSE Comments: This is a well-nourished well-developed white male in hospital scrubs with improving grooming and eye contact. No abnormal movements except for decreasing and improving psychomotor retardation. More cooperative with exam in mild distress. Speech was increased and productivity and more normal and rate and volume. Mood described as better I got out of my room and went to groups, affect congruent and less subdued. Thought process linear. Thought content: Patient denied suicidal or homicidal ideation, there were no delusions reported or noted, and he did not report any auditory visual hallucination. Attention and concentration were improving though he reports is always challenging secondary to a previous TBI and memory was appearing more reliable, but none were formally tested. He is alert and oriented x 3. Insight, judgment and impulse control are all limited but improving. Vitals/I&O/Wt Last Vital Signs Temp 98.6 F 01/08/25 00:00 Pulse 89 01/08/25 00:00 Resp 16 01/08/25 04:00 BP 111/75 01/08/25 14:50 Pulse Ox 98 01/08/25 00:00 O2 Del Method Room Air 01/07/25 16:00 O2 Flow Rate 2 01/03/25 20:43 Physical Exam Urinary Catheter Management: Tripp: Cath Placed During This Visit: yes, but has since been removed by the nurse Reason for Continuing Indwelling Catheter: Accurate Measurement of Urinary Output in Critically Ill Patients Urinary Catheter Date of Insertion: 12/31/24 Urinary Catheter Time of Insertion: 23:00 Date Urinary Catheter Removed: 01/03/25 Time Urinary Catheter Discontinued: 01:01 Data NPU 01/03/25 04:32 01/04/25 03:52 A&P Assessment and plan (1) Alcoholic intoxication: (2) Intentional overdose: (3) Suicidal ideation: (4) Alcohol withdrawal: (5) Depression: (6) Alcohol withdrawal seizure: (7) Alcohol use disorder, severe, dependence: Plan This is a 39-year-old male with depression, significant alcohol use disorder who presented to the hospital with a blood alcohol level of 409 admitted with suicidal ideation with continued difficulty with addiction. Plan: 1. We will explore medications for depression and anxiety. Moved to Librium 25 mg p.o. 3 times daily for couple days while we work on his withdrawal. Restarting some home medications including clonidine 0.2 mg p.o. twice daily and allowing him to take Haldol at bedtime. increase clonidine to t.i.d and monitor bp. Start Remeron 15 mg p.o. nightly. 2. Continue every 15 minute checks for safety. 3. Transfer to neuropsychiatric unit. 4. Encourage sober living treatment after discharge at the highest level of care to which he is willing to commit. 5. Continue CIWA protocol we will discontinue and go to Librium taper. 6. Will gather collateral information. 7. Evaluate against the backdrop of 96-hour hold. Filed for 21-day hold. 21-day hold hearing today patient placed on 21-day hold. PDMP PDMP Reviewed: Not Reviewed Involuntary Hold Information Hold Status: Legal Status: 96 Hour Hold Date/Time Hold Expires: 01/06/25 @ 1630 Attestations NPU Medical Necessity Statement*: Inpatient hospitalization is medically necessary and the clinically appropriate intervention at this time. We will monitor medications and make changes as indicated. Likely length of stay is 2-5 days. Will have an extension with 21-day filed. Coding Level of Care Code Acute Code for [facility] Fwd Diagnoses Alcoholic intoxication F10.929 Intentional overdose T50.902A Suicidal ideation R45.851 Alcohol withdrawal F10.939 Depression F32.A Alcohol withdrawal seizure F10.939; R56.9 Alcohol use disorder, severe, dependence F10.20
[2025-01-08] MEDS: nicotine 4 mg lozenge MUCOUS MEM (16:07)
[2025-01-08] MEDS: trazodone 50 mg Tablet PO (20:16)
[2025-01-08] MEDS: mirtazapine 15 mg Tablet PO (20:16)
[2025-01-08 22:00] VITALS: BP 114/70; PULSE 89; RESP 18; TEMP 36.4; O2SAT 96
[2025-01-09] MEDS: haloperidol 5 mg Tablet PO (02:17)
[2025-01-09] MEDS: trazodone 50 mg Tablet PO ×2 (02:17→20:04)
[2025-01-09] MEDS: nicotine 4 mg lozenge MUCOUS MEM ×5 (05:38→20:22)
[2025-01-09 06:00] VITALS: BP 100/66; PULSE 73; RESP 18; TEMP 36.5; O2SAT 99
[2025-01-09 08:15] VITALS: BP 108/74
[2025-01-09] MEDS: PHENobarbital 32.4 mg Tablet PO (08:15)
[2025-01-09] MEDS: docusate sodium 100 mg Capsule PO ×2 (08:15→17:05)
[2025-01-09] MEDS: multivitamin therapeutic Tablet 1 TAB PO (08:15)
[2025-01-09] MEDS: cloNIDine 0.1 mg Tablet 0.2 MG PO ×3 (08:15→20:04)
[2025-01-09] MEDS: metoprolol tartrate 25 mg Tablet PO ×2 (08:15→20:04)
[2025-01-09] MEDS: thiamine 100 mg Tablet PO (08:15)
[2025-01-09] MEDS: folic acid 1 mg Tablet PO (08:15)
[2025-01-09] MEDS: NON-FORMULARY MEDICATION 1 EACH XX (08:16)
[2025-01-09] MEDS: propranolol 20 mg Tablet 10 MG PO ×2 (10:44→20:04)
[2025-01-09 14:00] VITALS: BP 112/74; PULSE 74; RESP 16; TEMP 36.6; O2SAT 96
[2025-01-09 14:43] VITALS: BP 112/74
--- NOTE | 2025-01-09 16:19 | P.NPUPN_ITS ---
Subjective NPU 2 Subjective: Patient presented today reporting that things are going okay in regards to his overall improvement. He discussed sleeping well with the Remeron and feeling a bit better. He asked whether the Remeron would actually work as an antidepressant as well and we discussed that that was the plan to benefit from its antidepressant properties as well as its likelihood to assist with sleep. We continue to discussed the importance of avoiding medications like benzodiazepines given his condition. He denied any side effects to his medications. Mental Status Exam 2 MSE Comments: This is a well-nourished well-developed white male in hospital scrubs with improving grooming and eye contact. No abnormal movements except for decreasing and improving psychomotor retardation. More cooperative with exam in mild distress. Speech was increased and productivity and more normal and rate and volume. Mood described as better I got out of my room and went to groups, affect congruent and less subdued. Thought process linear. Thought content: Patient denied suicidal or homicidal ideation, there were no delusions reported or noted, and he did not report any auditory visual hallucination. Attention and concentration were improving though he reports is always challenging secondary to a previous TBI and memory was appearing more reliable, but none were formally tested. He is alert and oriented x 3. Insight, judgment and impulse control are all limited but improving. Vitals/I&O/Wt Last Vital Signs Temp 98 F 01/09/25 14:00 Pulse 74 01/09/25 14:00 Resp 16 01/09/25 14:00 BP 112/74 01/09/25 14:00 Pulse Ox 96 01/09/25 14:00 O2 Del Method Room Air 01/09/25 14:00 O2 Flow Rate 2 01/03/25 20:43 Weight last 48 hrs Weight 90.628 kg Physical Exam 2 Urinary Catheter Management: Tripp: Cath Placed During This Visit: yes, but has since been removed by the nurse Reason for Continuing Indwelling Catheter: Accurate Measurement of Urinary Output in Critically Ill Patients Urinary Catheter Date of Insertion: 12/31/24 Urinary Catheter Time of Insertion: 23:00 Date Urinary Catheter Removed: 01/03/25 Time Urinary Catheter Discontinued: 01:01 Data NPU 01/03/25 04:32 01/04/25 03:52 A&P Assessment and plan (1) Alcoholic intoxication: (2) Intentional overdose: (3) Suicidal ideation: (4) Alcohol withdrawal: (5) Depression: (6) Alcohol withdrawal seizure: (7) Alcohol use disorder, severe, dependence: Plan This is a 39-year-old male with depression, significant alcohol use disorder who presented to the hospital with a blood alcohol level of 409 admitted with suicidal ideation with continued difficulty with addiction. Plan: 1. We will explore medications for depression and anxiety. Moved to Librium 25 mg p.o. 3 times daily for couple days while we work on his withdrawal. Restarting some home medications including clonidine 0.2 mg p.o. twice daily and allowing him to take Haldol at bedtime. increase clonidine to t.i.d and monitor bp. Start Remeron 15 mg p.o. nightly. 2. Continue every 15 minute checks for safety. 3. Transfer to neuropsychiatric unit. 4. Encourage sober living treatment after discharge at the highest level of care to which he is willing to commit. 5. Continue CIWA protocol we will discontinue and go to Librium taper. 6. Will gather collateral information. 7. Evaluate against the backdrop of 96-hour hold. Filed for 21-day hold. 21- day hold hearing today patient placed on 21-day hold. PDMP PDMP Reviewed: Not Reviewed Involuntary Hold Information 2 Hold Status: Legal Status: 96 Hour Hold Date/Time Hold Expires: 01/06/25 @ 1630 Attestations NPU 2 Medical Necessity Statement*: Inpatient hospitalization is medically necessary and the clinically appropriate intervention at this time. We will monitor medications and make changes as indicated. Likely length of stay is 2-5 days. Will have an extension with 21- day filed. Coding Level of Care Code Acute Code for [facility] Diagnoses Alcoholic intoxication F10.929 Intentional overdose T50.902A Suicidal ideation R45.851 Alcohol withdrawal F10.939 Depression F32.A Alcohol withdrawal seizure F10.939; R56.9 Alcohol use disorder, severe, dependence F10.20
[2025-01-09 20:00] VITALS: O2SAT 95
[2025-01-09] MEDS: mirtazapine 15 mg Tablet PO (20:04)
[2025-01-09 21:20] VITALS: BP 109/74; PULSE 81; RESP 18; TEMP 36.6; O2SAT 98
[2025-01-10 05:50] VITALS: BP 103/69; PULSE 72; RESP 18; TEMP 36.5; O2SAT 98
[2025-01-10] MEDS: nicotine 4 mg lozenge MUCOUS MEM ×7 (06:18→18:44)
[2025-01-10 08:54] VITALS: BP 119/77
[2025-01-10] MEDS: multivitamin therapeutic Tablet 1 TAB PO (08:54)
[2025-01-10] MEDS: cloNIDine 0.1 mg Tablet 0.2 MG PO ×3 (08:54→20:16)
[2025-01-10] MEDS: docusate sodium 100 mg Capsule PO (08:54)
[2025-01-10] MEDS: folic acid 1 mg Tablet PO (08:55)
[2025-01-10] MEDS: thiamine 100 mg Tablet PO (08:55)
[2025-01-10] MEDS: PHENobarbital 32.4 mg Tablet PO (08:55)
[2025-01-10] MEDS: metoprolol tartrate 25 mg Tablet PO ×2 (08:55→20:16)
[2025-01-10] MEDS: NON-FORMULARY MEDICATION 1 EACH XX (09:26)
[2025-01-10] MEDS: propranolol 20 mg Tablet 10 MG PO ×2 (10:55→20:16)
[2025-01-10] MEDS: ibuprofen 600 mg Tablet PO (12:41)
[2025-01-10 14:00] VITALS: BP 121/86; PULSE 79; RESP 18; TEMP 36.6; O2SAT 96
[2025-01-10 14:42] VITALS: BP 118/82
--- NOTE | 2025-01-10 17:41 | P.NPUPN_ITS ---
Subjective NPU 2 Subjective: Patient presented today reporting that he is feeling better. We discussed at length the fact that the phenobarbital could not be something that he continued to take and that he would have more alertness with its discontinuation officially. We also discussed that it was not something that would have a place in his treatment regimen with his sobriety intact. We discussed the importance of him managing his sobriety along with the medications. He reports that he has not slept as well in a long time. He was inquiring about discharge and we discussed the likelihood of discharge this week. Mental Status Exam 2 MSE Comments: This is a well-nourished well-developed white male in hospital scrubs with improving grooming and eye contact. No abnormal movements except for decreasing and improving psychomotor retardation. More cooperative with exam in mild distress. Speech was increased in productivity and more normal and rate and volume. Mood described as better, affect congruent and less subdued. Thought process linear. Thought content: Patient denied suicidal or homicidal ideation, there were no delusions reported or noted, and he did not report any auditory visual hallucination. Attention and concentration were improving though he reports is always challenging secondary to a previous TBI and memory was appearing more reliable, but none were formally tested. He is alert and oriented x 3. Insight, judgment and impulse control are all limited but improving. Vitals/I&O/Wt Last Vital Signs Temp 97.9 F 01/10/25 21:56 Pulse 78 01/10/25 21:56 Resp 18 01/10/25 21:56 BP 104/67 01/10/25 21:56 Pulse Ox 98 01/10/25 21:56 O2 Del Method Room Air 01/10/25 14:00 O2 Flow Rate 2 01/03/25 20:43 01/10/25 14:59 Intake Total 960 / 960 Output Total 3700 / 3700 Balance -2740 / -2740 Weight last 48 hrs Weight 90.628 kg Physical Exam 2 Urinary Catheter Management: Tripp: Cath Placed During This Visit: yes, but has since been removed by the nurse Reason for Continuing Indwelling Catheter: Accurate Measurement of Urinary Output in Critically Ill Patients Urinary Catheter Date of Insertion: 12/31/24 Urinary Catheter Time of Insertion: 23:00 Date Urinary Catheter Removed: 01/03/25 Time Urinary Catheter Discontinued: 01:01 Data NPU 01/03/25 04:32 01/04/25 03:52 A&P Assessment and plan (1) Alcoholic intoxication: (2) Intentional overdose: (3) Suicidal ideation: (4) Alcohol withdrawal: (5) Depression: (6) Alcohol withdrawal seizure: (7) Alcohol use disorder, severe, dependence: Plan This is a 39-year-old male with depression, significant alcohol use disorder who presented to the hospital with a blood alcohol level of 409 admitted with suicidal ideation with continued difficulty with addiction. Plan: 1. We will explore medications for depression and anxiety. Moved to Librium 25 mg p.o. 3 times daily for couple days while we work on his withdrawal. Restarting some home medications including clonidine 0.2 mg p.o. twice daily and allowing him to take Haldol at bedtime. increase clonidine to t.i.d and monitor bp. Started Remeron 15 mg p.o. nightly. Officially discontinue the phenobarbital. 2. Continue every 15 minute checks for safety. 3. Transfer to neuropsychiatric unit. 4. Encourage sober living treatment after discharge at the highest level of care to which he is willing to commit. 5. Continue CIWA protocol we will discontinue and go to Librium taper. 6. Will gather collateral information. 7. Evaluate against the backdrop of 96-hour hold. Filed for 21-day hold. 21- day hold hearing today patient placed on 21-day hold. PDMP PDMP Reviewed: Not Reviewed Involuntary Hold Information 2 Hold Status: Legal Status: 96 Hour Hold Date/Time Hold Expires: 01/06/25 @ 1630 Attestations NPU 2 Medical Necessity Statement*: Inpatient hospitalization is medically necessary and the clinically appropriate intervention at this time. We will monitor medications and make changes as indicated. Likely length of stay is 2-5 days. Will have an extension with 21- day filed. Coding Level of Care Code Acute Code for [facility] Diagnoses Alcoholic intoxication F10.929 Intentional overdose T50.902A Suicidal ideation R45.851 Alcohol withdrawal F10.939 Depression F32.A Alcohol withdrawal seizure F10.939; R56.9 Alcohol use disorder, severe, dependence F10.20
[2025-01-10] MEDS: hyDROXYzine 25 mg Capsule 50 MG PO (18:42)
[2025-01-10] MEDS: mirtazapine 15 mg Tablet PO (20:16)
[2025-01-10] MEDS: trazodone 50 mg Tablet PO (20:16)
[2025-01-10 21:56] VITALS: BP 104/67; PULSE 78; RESP 18; TEMP 36.6; O2SAT 98
[2025-01-11] MEDS: nicotine 4 mg lozenge MUCOUS MEM ×10 (03:46→21:10)
[2025-01-11] MEDS: haloperidol 5 mg Tablet PO (03:46)
[2025-01-11] MEDS: trazodone 50 mg Tablet PO ×2 (03:46→21:43)
[2025-01-11 06:00] VITALS: BP 107/78; PULSE 96; RESP 18; TEMP 36.4; O2SAT 99
[2025-01-11] MEDS: cloNIDine 0.1 mg Tablet 0.2 MG PO ×3 (08:08→21:42)
[2025-01-11] MEDS: thiamine 100 mg Tablet PO (08:08)
[2025-01-11] MEDS: multivitamin therapeutic Tablet 1 TAB PO (08:08)
[2025-01-11] MEDS: metoprolol tartrate 25 mg Tablet PO ×2 (08:08→21:42)
[2025-01-11] MEDS: folic acid 1 mg Tablet PO (08:09)
[2025-01-11] MEDS: NON-FORMULARY MEDICATION 1 EACH XX (08:10)
[2025-01-11] MEDS: ibuprofen 600 mg Tablet PO (09:20)
[2025-01-11] MEDS: propranolol 20 mg Tablet 10 MG PO ×2 (09:43→21:41)
[2025-01-11] MEDS: hyDROXYzine 25 mg Capsule 50 MG PO (11:23)
--- NOTE | 2025-01-11 11:34 | P.NPUPN_ITS ---
Subjective NPU 2 Subjective: Patient presents today reporting that he is doing fine. He reports the addition of sleep is making a big difference. It seems that the addition of sleep and the absence of the phenobarbital is also allowing for him to have some greater sense of alertness. 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 We discussed the likelihood of discharge by Saturday but now he is lobbying for that to be even faster. We discussed the importance of us getting follow-up in place and identifying increased insight in relation to the suicide attempt. He denied any side effects to the medications. Mental Status Exam 2 MSE Comments: This is a well-nourished well-developed white male in hospital scrubs with improving grooming and eye contact. No abnormal movements except for decreasing and improving psychomotor retardation. More cooperative with exam in mild distress. Speech was increased in productivity and more normal and rate and volume. Mood described as better, affect congruent and less subdued. Thought process linear. Thought content: Patient denied suicidal or homicidal ideation, there were no delusions reported or noted, and he did not report any auditory visual hallucination. Attention and concentration were improving though he reports is always challenging secondary to a previous TBI and memory was appearing more reliable, but none were formally tested. He is alert and oriented x 3. Insight, judgment and impulse control are all limited but improving. Vitals/I&O/Wt Last Vital Signs Temp 97.6 F 01/11/25 06:00 Pulse 96 01/11/25 06:00 Resp 18 01/11/25 06:00 BP 107/78 01/11/25 06:00 Pulse Ox 99 01/11/25 06:00 O2 Del Method Room Air 01/10/25 14:00 O2 Flow Rate 2 01/03/25 20:43 01/10/25 01/11/25 01/11/25 22:59 06:59 14:59 Intake Total 980 / 1940 Output Total 1850 / 5550 Balance -870 / -3610 Weight last 48 hrs Weight 90.628 kg Physical Exam 2 Urinary Catheter Management: Tripp: Cath Placed During This Visit: yes, but has since been removed by the nurse Reason for Continuing Indwelling Catheter: Accurate Measurement of Urinary Output in Critically Ill Patients Urinary Catheter Date of Insertion: 12/31/24 Urinary Catheter Time of Insertion: 23:00 Date Urinary Catheter Removed: 01/03/25 Time Urinary Catheter Discontinued: 01:01 Data NPU 01/03/25 04:32 01/04/25 03:52 A&P Assessment and plan (1) Alcoholic intoxication: (2) Intentional overdose: (3) Suicidal ideation: (4) Alcohol withdrawal: (5) Depression: (6) Alcohol withdrawal seizure: (7) Alcohol use disorder, severe, dependence: Plan This is a 39-year-old male with depression, significant alcohol use disorder who presented to the hospital with a blood alcohol level of 409 admitted with suicidal ideation with continued difficulty with addiction. Plan: 1. We will explore medications for depression and anxiety. Moved to Librium 25 mg p.o. 3 times daily for couple days while we work on his withdrawal. Restarting some home medications including clonidine 0.2 mg p.o. twice daily and allowing him to take Haldol at bedtime. increase clonidine to t.i.d and monitor bp. Started Remeron 15 mg p.o. nightly. Officially discontinue the phenobarbital. 2. Continue every 15 minute checks for safety. 3. Transfer to neuropsychiatric unit. 4. Encourage sober living treatment after discharge at the highest level of care to which he is willing to commit. 5. Continue CIWA protocol we will discontinue and go to Librium taper. 6. Will gather collateral information. 7. Evaluate against the backdrop of 96-hour hold. Filed for 21-day hold. 21- day hold hearing today patient placed on 21-day hold. PDMP PDMP Reviewed: Not Reviewed Involuntary Hold Information 2 Hold Status: Legal Status: 96 Hour Hold Date/Time Hold Expires: 01/06/25 @ 1630 Attestations NPU 2 Medical Necessity Statement*: Inpatient hospitalization is medically necessary and the clinically appropriate intervention at this time. We will monitor medications and make changes as indicated. Likely length of stay is 2-5 days. Will have an extension with 21- day filed. Coding Level of Care Code Acute Code for [facility] Diagnoses Alcoholic intoxication F10.929 Intentional overdose T50.902A Suicidal ideation R45.851 Alcohol withdrawal F10.939 Depression F32.A Alcohol withdrawal seizure F10.939; R56.9 Alcohol use disorder, severe, dependence F10.20
[2025-01-11 14:00] VITALS: BP 123/75; PULSE 87; RESP 19; TEMP 36.7; O2SAT 97
[2025-01-11 14:51] VITALS: BP 123/75
[2025-01-11 19:23] VITALS: BP 119/77; PULSE 86; RESP 18; TEMP 36.7; O2SAT 96
[2025-01-11 21:42] VITALS: BP 119/77
[2025-01-11] MEDS: mirtazapine 15 mg Tablet PO (21:42)
[2025-01-12] VITALS (7 sets, daily range): BP systolic 92–107; BP diastolic 65–73; PULSE 74–86; RESP 18; TEMP 36.6–36.8; O2SAT 95–99
[2025-01-12] MEDS: nicotine 4 mg lozenge MUCOUS MEM ×8 (06:06→21:23)
[2025-01-12] MEDS: folic acid 1 mg Tablet PO (08:14)
[2025-01-12] MEDS: multivitamin therapeutic Tablet 1 TAB PO (08:14)
[2025-01-12] MEDS: ibuprofen 600 mg Tablet PO ×2 (08:14→19:49)
[2025-01-12] MEDS: thiamine 100 mg Tablet PO (08:14)
[2025-01-12] MEDS: metoprolol tartrate 25 mg Tablet PO ×2 (08:16→21:44)
[2025-01-12] MEDS: cloNIDine 0.1 mg Tablet 0.2 MG PO ×3 (08:16→21:43)
[2025-01-12] MEDS: NON-FORMULARY MEDICATION 1 EACH XX (08:16)
[2025-01-12] MEDS: hyDROXYzine 25 mg Capsule 50 MG PO ×2 (09:46→21:44)
--- NOTE | 2025-01-12 10:00 | P.NPUPN_ITS ---
Subjective NPU 2 Subjective: Patient presented today reporting that he is doing better. He reports that his grandparents were hopeful that he could come home and be helpful. Treatment team reached out to them and got some collateral information on the knowledge of his situation and need for some oversight and to identify if they had any concerns which they did not. We discussed the risks, benefits and alternatives of planning for discharge tomorrow. He denied any side effects with medication. Mental Status Exam 2 MSE Comments: This is a well-nourished well-developed white male in hospital scrubs with improving grooming and eye contact. No abnormal movements except for decreasing and improving psychomotor retardation. More cooperative with exam in mild distress. Speech was increased in productivity and more normal and rate and volume. Mood described as pretty good, affect congruent and less subdued. Thought process linear. Thought content: Patient denied suicidal or homicidal ideation, there were no delusions reported or noted, and he did not report any auditory visual hallucination. Attention and concentration were improving though he reports is always challenging secondary to a previous TBI and memory was appearing more reliable, but none were formally tested. He is alert and oriented x 3. Insight, judgment and impulse control are all limited but improving. Vitals/I&O/Wt Last Vital Signs Temp 98.2 F 01/12/25 06:00 Pulse 74 01/12/25 06:00 Resp 18 01/12/25 06:00 BP 92/65 01/12/25 09:47 Pulse Ox 98 01/12/25 06:00 O2 Del Method Room Air 01/11/25 14:00 O2 Flow Rate 2 01/03/25 20:43 01/11/25 01/12/25 01/12/25 22:59 06:59 14:59 Intake Total 980 / 1960 Output Total 1850 / 3700 Balance -870 / -1740 Physical Exam 2 Urinary Catheter Management: Tripp: Cath Placed During This Visit: yes, but has since been removed by the nurse Reason for Continuing Indwelling Catheter: Accurate Measurement of Urinary Output in Critically Ill Patients Urinary Catheter Date of Insertion: 12/31/24 Urinary Catheter Time of Insertion: 23:00 Date Urinary Catheter Removed: 01/03/25 Time Urinary Catheter Discontinued: 01:01 Data NPU 01/03/25 04:32 01/04/25 03:52 A&P Assessment and plan (1) Alcoholic intoxication: (2) Intentional overdose: (3) Suicidal ideation: (4) Alcohol withdrawal: (5) Depression: (6) Alcohol withdrawal seizure: (7) Alcohol use disorder, severe, dependence: Plan This is a 39-year-old male with depression, significant alcohol use disorder who presented to the hospital with a blood alcohol level of 409 admitted with suicidal ideation with continued difficulty with addiction. Plan: 1. We will explore medications for depression and anxiety. Moved to Librium 25 mg p.o. 3 times daily for couple days while we work on his withdrawal. Restarting some home medications including clonidine 0.2 mg p.o. twice daily and allowing him to take Haldol at bedtime. increase clonidine to t.i.d and monitor bp. Started Remeron 15 mg p.o. nightly. Officially discontinue the phenobarbital. 2. Continue every 15 minute checks for safety. 3. Transfer to neuropsychiatric unit. 4. Encourage sober living treatment after discharge at the highest level of care to which he is willing to commit. 5. Continue CIWA protocol we will discontinue and go to Librium taper. 6. Will gather collateral information. 7. Evaluate against the backdrop of 96-hour hold. Filed for 21-day hold. 21- day hold hearing today patient placed on 21-day hold. Likely discharge tomorrow. PDMP PDMP Reviewed: Not Reviewed Involuntary Hold Information 2 Hold Status: Legal Status: 96 Hour Hold Date/Time Hold Expires: 01/06/25 @ 1630 Attestations NPU 2 Medical Necessity Statement*: Inpatient hospitalization is medically necessary and the clinically appropriate intervention at this time. We will monitor medications and make changes as indicated. Likely length of stay is 1-3 days. Will have an extension with 21- day filed. Coding Level of Care Code Acute Code for [facility] Diagnoses Alcoholic intoxication F10.929 Intentional overdose T50.902A Suicidal ideation R45.851 Alcohol withdrawal F10.939 Depression F32.A Alcohol withdrawal seizure F10.939; R56.9 Alcohol use disorder, severe, dependence F10.20
[2025-01-12] MEDS: propranolol 20 mg Tablet 10 MG PO ×2 (12:35→21:44)
--- NOTE | 2025-01-12 12:42 | PC.NURSE ---
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 they will welcome him home and that if we need any more information just let them know.
[2025-01-12] MEDS: mirtazapine 15 mg Tablet PO (21:44)
[2025-01-12] MEDS: trazodone 50 mg Tablet PO (21:47)
[2025-01-13 05:20] VITALS: BP 111/74; PULSE 82; RESP 17; TEMP 36.5; O2SAT 99
[2025-01-13] MEDS: acetaminophen 325 mg Tablet 650 MG PO (05:28)
[2025-01-13] MEDS: nicotine 4 mg lozenge MUCOUS MEM ×4 (06:00→12:28)
[2025-01-13 08:11] VITALS: BP 112/67
[2025-01-13] MEDS: folic acid 1 mg Tablet PO (08:11)
[2025-01-13] MEDS: cloNIDine 0.1 mg Tablet 0.2 MG PO (08:11)
[2025-01-13] MEDS: multivitamin therapeutic Tablet 1 TAB PO (08:11)
[2025-01-13] MEDS: thiamine 100 mg Tablet PO (08:11)
[2025-01-13] MEDS: metoprolol tartrate 25 mg Tablet PO (08:52)
--- NOTE | 2025-01-13 11:18 | W.PM.NPUDCS ---
Diagnoses at Discharge Discharge Diagnosis (1) Alcoholic intoxication: Status: Inactive (2) Intentional overdose: Status: Acute (3) Suicidal ideation: Status: Acute (4) Alcohol withdrawal: Status: Acute (5) Depression: Status: Acute (6) Alcohol withdrawal seizure: Status: Acute (7) Alcohol use disorder, severe, dependence: Status: Acute Reason for Visit Reason for Visit: SI attempt Hospital Course Hospital Course Patient was admitted to the ICU for close monitoring of heart rate. Beta and calcium channel blockers were held. Patient had 2 withdrawal seizures on Monday 01/01. He was placed on Keppra and given phenobarbital and was on the CIWA protocol. Patient is with been without any seizure since Saturday. He is finishing up a course of phenobarbital and otherwise remains on CIWA protocol. He is very anxious and due to his suicide attempt he will be transferred to inpatient neuropsych with Dr. Puente excepting Involuntary Hold Information Hold Status: Legal Status: 96 Hour Hold Date/Time Hold Expires: 01/06/25 @ 1630 Mental Status Exam MSE Comments: This is a well-nourished well-developed white male in hospital scrubs with improving grooming and eye contact. No abnormal movements except for decreasing and improving psychomotor retardation. More cooperative with exam in mild distress. Speech was increased in productivity and more normal and rate and volume. Mood described as pretty good, affect congruent and less subdued. Thought process linear. Thought content: Patient denied suicidal or homicidal ideation, there were no delusions reported or noted, and he did not report any auditory visual hallucination. Attention and concentration were improving though he reports is always challenging secondary to a previous TBI and memory was appearing more reliable, but none were formally tested. He is alert and oriented x 3. Insight, judgment and impulse control are all limited but improving. Physical Exam Urinary Catheter Management: Tripp: Cath Placed During This Visit: yes, but has since been removed by the nurse Reason for Continuing Indwelling Catheter: Accurate Measurement of Urinary Output in Critically Ill Patients Urinary Catheter Date of Insertion: 12/31/24 Urinary Catheter Time of Insertion: 23:00 Date Urinary Catheter Removed: 01/03/25 Time Urinary Catheter Discontinued: 01:01 Discharge Data Studies Completed and Pending: Completed Studies During Hospitalization Category Date Time Status CT abdomen pelvis w con* [id number] Stat Cat Scan 12/31/24 17:37 Completed CV. echo complete * [id number] Routine Ultrasound 12/31/24 19:19 Completed Radiology Impressions Abdomen/Pelvis CT 12/31/24 17:37 IMPRESSION: 1. No bowel obstruction or inflammatory process associated with the bowel. 2. No free air or significant free fluid in the abdomen or pelvis. 3. No evidence of appendicitis. 4. Hepatic steatosis. Laboratory Results WBC 7.90 10^3/uL (3.2 9-11.43) 01/03/25 04:32 RBC 4.91 10^6/uL (3.8 5-5.65) 01/03/25 04:32 Hgb 14.80 g/dL (11.27 -16.99) 01/03/25 04:32 Hct 43.9 % (37-53) 01/03/25 04:32 MCV 89.4 fl (82-101) 01/03/25 04:32 MCH 30.1 pg (27-33) 01/03/25 04:32 MCHC 33.7 g/dL (30-55) 01/03/25 04:32 RDW 11.9 % (12.1-15.1 ) L 01/03/25 04:32 Plt Count 59 10^3/cmm (157- 399) L 01/03/25 04:32 MPV 11.0 fL (7.4-10.4 ) H 01/03/25 04:32 Neut % (Auto) 66.6 % 01/03/25 04:32 Lymph % (Auto) 18.2 % 01/03/25 04:32 [place] % (Auto) 9.9 % 01/03/25 04:32 Eos % (Auto) 4.1 % 01/03/25 04:32 Baso % (Auto) 0.6 % 01/03/25 04:32 Neut # (Auto) 5.26 10^3/uL (1.8 -7.7) 01/03/25 04:32 Lymph # (Auto) 1.4 10^3/uL (0.8- 4.8) 01/03/25 04:32 [place] # (Auto) 0.8 10^3/uL (0.2- 0.9) 01/03/25 04:32 Eos # (Auto) 0.3 10^3/uL (0.0- 0.8) 01/03/25 04:32 Baso # (Auto) 0.1 10^3/uL (0.0- 0.1) 01/03/25 04:32 Nucleated RBC % (a uto) 0 % 01/03/25 04:32 Nucleated RBCs # 0.0 /100WBC 01/03/25 04:32 PT 12.50 SECONDS (12 .1-14.9) 12/31/24 16:00 INR 0.88 (0.8-1.2) 12/31/24 16:00 Specimen Type Arterial 12/31/24 16:46 Sample Site Radial, left 12/31/24 16:46 ABG pH 7.61 (7.35-7.45) H* 12/31/24 16:46 ABG pCO2 28.3 mmHg (35-45) L 12/31/24 16:46 ABG pO2 104.0 mmHg (80.0- 100.0) H 12/31/24 16:46 ABG PO2/FiO2 Ratio 495 12/31/24 16:46 ABG HCO3 28.3 mmol/L (22-2 6) H 12/31/24 16:46 ABG O2 Saturation 99.2 12/31/24 16:46 ABG Base Excess 7.8 mmol/L (-2.0- 2.0) H 12/31/24 16:46 Sunny Test Pos 12/31/24 16:46 A-a O2 Gradient 1.1 mmHg (5-10) L 12/31/24 16:46 Hematocrit 52.4 % (42-52) H 12/31/24 16:46 Hgb O2 Saturation 98.1 % (95-100) 12/31/24 16:46 Carboxyhemoglobin 1.0 %THgb (0.4-20 .1) 12/31/24 16:46 Methemoglobin 0.2 % (0.4-1.5) L 12/31/24 16:46 Total Hemoglobin 17.1 g/dL (14-18) 12/31/24 16:46 Sodium 136.0 mmol/L (131 -143) 12/31/24 16:46 Potassium 3.5 mmol/L (3.5-5 .0) 12/31/24 16:46 Glucose 240.0 mg/dL (70-1 15) H 12/31/24 16:46 Ionized Calcium 0.9 mmol/L (1.1-1 .4) L 12/31/24 16:46 O2 Delivery Device Room air 12/31/24 16:46 FiO2 21.0 % 12/31/24 16:46 Battery Starter ID glc 12/31/24 16:46 Sodium 134 mmol/L (136-1 45) L 01/04/25 03:52 Potassium 4.3 mmol/L (3.5-5 .1) 01/04/25 03:52 Chloride 97 mmol/L (98-107 ) L 01/04/25 03:52 Carbon Dioxide 24 mmol/L (22-29) 01/04/25 03:52 Anion Gap 17.3 (5-19) 01/04/25 03:52 BUN 9 mg/dL (6-20) 01/04/25 03:52 Creatinine 0.7 mg/dL (0.7-1. 2) 01/04/25 03:52 GFR Calculation 126.9 mL/min (90- 130) 01/04/25 03:52 Glucose 93 mg/dL (65-115) 01/04/25 03:52 POC Glucose 111 mg/dL (70-110 ) H 01/03/25 21:22 Estimat Average Gl ucose 108 12/31/24 16:00 Hemoglobin A1c 5.4 % (4.0-6.0) 12/31/24 16:00 Calculated Osmolal ity 276 mOsm/kg (285- 295) L 01/04/25 03:52 Lactic Acid 6.2 mmol/L (0.5-2 .2) H* 12/31/24 16:00 Lactic Acid (Sepsi s) 3.8 mmol/L (0.5-2 .2) H 12/31/24 19:56 Calcium 8.7 mg/dL (8.5-10 .5) 01/04/25 03:52 Phosphorus 2.2 mg/dL (2.5-4. 5) L 01/03/25 04:32 Magnesium 1.6 mg/dL (1.7-2. 3) L 01/03/25 04:32 Iron 129 ug/dL (59-158 ) 12/31/24 16:00 TIBC 258 mcg/dl 12/31/24 16:00 % Saturation 50.0 % (20-50) 12/31/24 16:00 Unsat Iron Binding 129 ug/dL (112-34 7) 12/31/24 16:00 Total Bilirubin 0.7 mg/dL (0.15-1 .2) 01/04/25 03:52 AST 84 U/L (0-40) H 01/04/25 03:52 ALT 128 U/L (0-41) H 01/04/25 03:52 Alkaline Phosphata se 72 U/L (40-130) 01/04/25 03:52 Total Protein 6.6 g/dL (6.6-8.7 ) 01/04/25 03:52 Albumin 4.0 g/dL (3.5-5.2 ) 01/04/25 03:52 Globulin 2.6 g/dL (1.3-4.6 ) 01/04/25 03:52 Triglycerides 40 mg/dL (0-150) 01/01/25 03:47 Cholesterol 162 mg/dL (0-200) 01/01/25 03:47 LDL Cholesterol, C alc 65 mg/dL (50-129) 01/01/25 03:47 HDL Cholesterol 89 mg/dL (60-100) 01/01/25 03:47 LDL/HDL Ratio 0.73 RATIO (0.00- 3.22) 01/01/25 03:47 Cholesterol/HDL Ra steve 1.82 mg/dL (1.0-5 .00) 01/01/25 03:47 Vitamin B12 1258 pg/mL (232-1 245) H 12/31/24 16:00 Folate > 20.0 ng/mL (4.5 -32.2) 01/01/25 03:47 Procalcitonin 0.12 ng/mL (0-0.5 ) 01/01/25 03:47 TSH 0.74 uIU/mL (0.27 -4.20) 12/31/24 16:00 Urine Color Yellow (Yellow) 12/31/24 20:20 Urine Appearance Clear (CLEAR) 12/31/24 20:20 Urine pH 8.0 (5-7) A 12/31/24 20:20 Ur Specific Gravit y 1.037 (1.005-1.0 30) H 12/31/24 20:20 Urine Protein 1+ (Negative) A 12/31/24 20:20 Urine Glucose (UA) Trace (Normal) H 12/31/24 20:20 Urine Ketones 1+ (Negative) H 12/31/24 20:20 Urine Blood Trace (Negative) A 12/31/24 20:20 Urine Nitrate Negative (Negati ve) 12/31/24 20:20 Urine Bilirubin Negative (Negati ve) 12/31/24 20:20 Urine Urobilinogen 1.0 mg/dL (Negati ve) 12/31/24 20:20 Ur Leukocyte Elizabeth ase Negative (Negati ve) 12/31/24 20:20 Urine RBC 0-2 /hpf (0-2) 12/31/24 20:20 Urine WBC 0-5 /hpf (0-5) 12/31/24 20:20 Ur Squamous Epith Cells 0-5 /hpf (0-5) 12/31/24 20:20 Amorphous Sediment Not Reportable 12/31/24 20:20 Urine Bacteria None seen /hpf (N ONE) 12/31/24 20:20 Hyaline Casts 0-4 /lpf H 12/31/24 20:20 Gastric Occult Blo od Positive (Negati ve) H 12/31/24 17:14 Digoxin 0.4 ng/mL (0.6-1. 2) L 12/31/24 16:00 Salicylates < 0.3 mg/dL (3-10 ) L 12/31/24 16:00 Urine Opiates Scre en Negative ng/mL (N egative) 12/31/24 20:20 Acetaminophen < 5.0 ug/mL (10-3 0) L 12/31/24 16:00 Ur Barbiturates Sc reen Negative ng/mL (N egative) 12/31/24 20:20 Ur Phencyclidine S crn Negative ng/mL (N egative) 12/31/24 20:20 Ur Amphetamines Sc reen Negative ng/mL (N egative) 12/31/24 20:20 Phenobarbital 20.9 ug/mL (10-30 ) 01/03/25 04:32 U Benzodiazepines Scrn Negative ng/mL (N egative) 12/31/24 20:20 Urine Cocaine Scre en Negative ng/mL (N egative) 12/31/24 20:20 U Marijuana (THC) Screen Negative ng/mL (N egative) 12/31/24 20:20 Ethyl Alcohol 409 mg/dL (0-10) H* 12/31/24 16:00 Vitals: Last Vital Signs Temp 97.7 F 01/13/25 05:20 Pulse 82 01/13/25 05:20 Resp 17 01/13/25 05:20 BP 112/67 01/13/25 08:11 Pulse Ox 99 01/13/25 05:20 O2 Del Method Room Air 01/13/25 05:20 O2 Flow Rate 2 01/03/25 20:43 Discharge Plan Discharge Patient Disposition: Xfer Psychiatric Hosp Condition: Stable Prescriptions: New thiamine mononitrate (vit B1) [Vitamin B-1 (mononitrate)] 100 mg Tablet 100 mg PO DAILY 30 Days Qty: 30 1RF mirtazapine 15 mg Tablet 15 mg PO BEDTIME 30 Days Qty: 30 1RF propranolol 20 mg Tablet 10 mg PO BID PRN (Reason: Agitation) 30 Days Qty: 15 1RF metoprolol tartrate 25 mg Tablet 25 mg PO BID@0900,2100 30 Days Qty: 30 1RF hydroxyzine pamoate 25 mg Capsule 50 mg PO Q6H PRN (Reason: Anxiety) 30 Days Qty: 120 1RF folic acid 1 mg Tablet 1 mg PO DAILY 30 Days Qty: 30 1RF clonidine HCl 0.1 mg Tablet 0.2 mg PO TID 30 Days Qty: 180 1RF No Action No Known Home Medications Discharge Orders: Discharge Order (Routine); Ordered 01/13/25 Ordered By: Delbert Puente Referrals: [facility] [employer] [facility] [Other] Discharge Diet: Advance as tolerated and Regular Discharge Activity: Resume usual activity and Increase activity as tolerated Patient Instructions: Opioid Safety Discharge Attestations NPU Time Spent in Discharge Care*: less than 30 min Specific Discharge Activities: Specific discharge activities: educating patient, discussing with protective services case worker/social workers/dc planners, documenting/other paperwork and evaluating patient/reviewing data Coding Level of Care Code Acute Code for Chg Fwd Diagnoses Alcoholic intoxication F10.929 Intentional overdose T50.902A Suicidal ideation R45.851 Alcohol withdrawal F10.939 Depression F32.A Alcohol withdrawal seizure F10.939; R56.9 Alcohol use disorder, severe, dependence F10.20
[2025-01-13] MEDS: propranolol 20 mg Tablet 10 MG PO (11:54)
[2025-01-13 12:29] VITALS: BP 111/74; PULSE 82; RESP 17; TEMP 36.5; O2SAT 97
== END 2025-01-13 13:25 | DRG 918 ==
LOC: ER 17:41 → ICU 18:20 → NP 01-04 15:59
PROVIDERS: Admitting Provider Student in an Organized Health Care Education/Training Program; Emergency Provider Emergency Medicine; Visit Provider Psychiatry & Neurology Psychiatry
DX: T44.8X2A Poisoning by centrally-acting and adrenergic-neuron-blocking agents, intentional self-harm, initial encounter (principal); F10.239 Alcohol dependence with withdrawal, unspecified; G40.89 Other seizures; Y90.8 Blood alcohol level of 240 mg/100 ml or more; T51.0X2A Toxic effect of ethanol, intentional self-harm, initial encounter; F10.229 Alcohol dependence with intoxication, unspecified; Z87.891 Personal history of nicotine dependence; F41.9 Anxiety disorder, unspecified; F32.A Depression, unspecified
CPT/HCPCS: 36415; 36416; 36600; 51702; 74177; 80051; 80053; 80061; 80162; 80184; 80306; 80307; 81001; 82271; 82330; 82607; 82746; 82805; 82962; 83036; 83540; 83550; 83605; 83735; 84100; 84145; 84443; 85025; 85610; 93005; 93306; 94664; 96361; 96372; 96374; 96375; 96376; 97150; 97165; 99285; J1630; J1644; J1953; J2060; J2270; J2405; J2470; J2560; J3411; J3475; J3480; J3490; J7030; J7042; J9999

== ENCOUNTER 2025-04-16 12:10 | Emergency (ER) | payer BC, MEDICAID, SELFPAY ==
--- OUTSIDE RECORDS SUMMARY | 2025-04-16 12:18 | XMS_ITS | Clinical Summary ---
Author Organization [employer] Address [address] [place] [address] Phone Care Team Providers Care Certified Nurses Aide Name Role Phone Unavailable Primary Care Provider Unavailabl e Allergies Active Allergy Reactions Criticality Noted Date Comments Amoxicillin 10/24/2024 Erythromycin 10/24/2024 Medications baclofen (Lioresal) 20 mg tabletIndicatio ns:muscle spasticity of spinal origin Take 20 mg by mouth 3 (three) times a day if needed for muscle spasms. Active cloNIDine (Catapres) 0.1 mg tabletIndicatio ns:anxiety Take 1 tablet (0.1 mg total) by mouth 1 (one) time each day before evening meal. 30 tablet 10/27/2024 Active cloNIDine (Catapres) 0.2 mg tabletIndicatio ns:anxiety Take 1 tablet (0.2 mg total) by mouth 1 (one) time each day in the morning. 30 tablet 10/28/2024 Active cloNIDine (Catapres) 0.2 mg tabletIndicatio ns:anxiety Take 1 tablet (0.2 mg total) by mouth 1 (one) time each day before lunch. 30 tablet 10/28/2024 Active propranoloL (Inderal) 10 mg tabletIndicatio ns:migraine prevention Take 1 tablet (10 mg total) by mouth 2 (two) times a day. 60 tablet 11 10/27/2024 Active traZODone (Desyrel) 50 mg tabletIndicatio ns:insomnia associated with depression Take 1 tablet (50 mg total) by mouth at night if needed for sleep. 30 tablet 10/27/2024 Active Active Problems No known active problems Resolved Problems Problem Noted Date Diagnosed Date Resolved Date Major depressive disorder wi th current active episode, unspecified depression episode severity, unspecified whether recurrent 10/24/2024 10/27/2024 Social History Tobacco Use Types Packs/Day Years Used Date Smoking Tobacco: Never Passive Smoke Exposure: Never Smokeless Tobacco: Never Tobacco Cessation:Counseling Given: Not Answered Alcohol Use Standard Drinks/Week Comments Yes 0 (1 standard drink = 0.6 oz pur e alcohol) bottle of whiskey daily [facility] Utilities Answer Date Recorded In the past 12 months has th e [employer], gas, oil, or water company threatened to shut off services in your home? No 10/26/2024 Humiliation, Afraid, Rape, and Kick questionnair e Answer Date Recorded Within the last year, have y ou been afraid of your partner or ex-partner? No 10/26/2024 Within the last year, have y ou been humiliated or emotionally abused in other ways by your partner or ex-partner? No Within the last year, have y ou been kicked, hit, slapped, or otherwise physically hurt by your partner or ex-partner? No 10/26/2024 Within the last year, have y ou been raped or forced to have any kind of sexual activity by your partner or ex-partner? No 10/26/2024 Overall Financial Resource Strain (CARDIA) Answe r Date Recorded How hard is it for you to pa y for the very basics like food, housing, medical care, and heating? Very hard 10/26/2024 Hunger Vital Sign Answer Date Recorded Within the past 12 months, y ou worried that your food would run out before you got the money to buy more. Never true 10/27/19 25 Within the past 12 months, t he food you bought just didn't last and you didn't have money to get more. Never true 10/26/2024 PRAPARE - Transportation Answer Date Re corded In the past 12 months, has l ack of transportation kept you from medical appointments or from getting medications? No 01/2025 In the past 12 months, has l ack of transportation kept you from meetings, work, or from getting things needed for daily living? No 10/26/2024 Housing Stability Vital Sign Answer Robert e Recorded In the last 12 months, was t here a time when you were not able to pay the mortgage or rent on time? Yes 10/26/2024 In the past 12 months, how m any times have you moved where you were living? 3 10/26/2024 At any time in the past 12 m [facility], were you homeless or living in a intermediate (including now)? Yes 10/26/2024 [facility] - Employment Answer Date Recorded Do you want help finding or keeping work or a job? I do not need or want help 10/25/2024 Sex and Gender Information Value Date Recorded Sex Assigned at Male 10/24/2024 10:57 PM CDT Legal Sex Male 2:14 PM CDT Gender Identity Male 10/24/2024 10:57 PM CDT Sexual Orientation Not on file Last Filed Vital Signs Vital Sign Reading Time Taken Comments Blood Pressure 97/71 10/27/2024 4:17 PM CDT Pulse 80 10/27/2024 4:17 PM CDT Temperature 36.4 C (97.6 F) 10/27/2024 4:17 PM CDT Respiratory Rate 17 10/27/2024 4:17 PM CDT Oxygen Saturation 99% 10/27/2024 4:17 PM CDT Inhaled Oxygen Concentration - - Weight 88.5 kg (195 lb) 10/25/2024 7:22 AM CDT Height 180.3 cm (5' 11 ) 10/24/2024 8:38 PM CDT Body Mass Index 27.2 10/24/2024 8:38 PM CDT Plan of Treatment Health Maintenance Due Date Last Done Comments Lipid Panel 1987 MMR Vaccines (1 of 1 - Stand cirilo series) 1988 DTaP,Tdap,and Td Vaccines (1 - Tdap) 1994 Varicella Vaccines (1 of 2 - 13+ 2-dose series) 2000 Depression Screening 2005 Social Drivers of Health (SDoH) 2005 Hepatitis B Vaccines (1 of 3 - 19+ 3-dose series) 2006 HPV Vaccines (1 - 3-dose SCD M series) 2014 COVID-19 Vaccine (1 - 2023-2 5 season) 2025 Influenza Vaccine (#1) 2025 Pneumococcal Vaccine: 50+ Ye ars (1 of 1 - PCV) 2037 Zoster Vaccines (1 of 2) 2037 RSV Vaccines (1 - 1-dose 75+ series) 2062 HIB Vaccines Aged Out No longer eligi ble based on patient's age to complete this topic Hepatitis A Vaccines Aged Out No long er eligible based on patient's age to complete this topic IPV Vaccines Aged Out No longer eligi ble based on patient's age to complete this topic Meningococcal B Vaccine Aged Out No l onger eligible based on patient's age to complete this topic Meningococcal Vaccine Aged Out No neymar demetri eligible based on patient's age to complete this topic Pneumococcal Vaccine Aged Out No long er eligible based on patient's age to complete this topic Rotavirus Vaccines Aged Out No longer eligible based on patient's age to complete this topic Interventions Community Resource Recommendations Community Resource Services Recommended Domains Addressed Status Status Reason/Outcome Date/Time HORACIO (VICKY) - Community Resource Program Financial Assistance for Healthcare, Financial Assistance for Medications Financial Resource Strain, Medical Cost [place] In Use 10/26/2024 9:29 AM CDT from Last 12 Months Insurance [employer] Advance Directives For more information, please contact: [phone] (7:30 AM - 5PM [facility], 7 days a week) * Full Code (Latest Code Status on File) Date Activated Date Inactivated Comments 10/24/2024 7:41 PM 10/27/2024 8:32 PM
[2025-04-16 12:25] VITALS: BP 136/71; PULSE 118; RESP 18; O2SAT 93
--- NOTE | 2025-04-16 12:52 | ED_ITS ---
HPI - Alcohol 2 General: Chief Complaint: Alcohol Stated Complaint: ETOH - wanting detox Time Seen by Provider: 04/16/25 12:42 Source: patient and EMS Mode of arrival: EMS Limitations: no limitations History of Present Illness: Patient is a 39-year-old male presents to ED today acutely intoxicated requesting detox. Patient states he is a longstanding alcoholic but has been sober recently until he relapsed last week. He states he resides with his grandparents and helps care for them. 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 Patient states EMS picked him up in a local hotel. Reports history of TBI. States he has not homicidal or suicidal. Patient reports he was medically admitted back in December for alcohol-at that visit it looks like he had also admitted to overdosing on propranolol. Patient states he was told by a friend to say he was suicidal so we'd keep him. He tells me is not suicidal. MD complaint: alcohol intoxication and medical clearance for detox facility Last drink: Just [employer] Chronic alcohol use: Yes Previous visits for alcohol intoxication: Yes Recent trauma: No Associated symptoms: Reports no associated symptoms; Deny abdominal pain, nausea, suicidal ideation, syncope or vomiting Treatments prior to arrival: none Related Data Previous Rx's ?Medication ?Instructions ?Recorded clonidine HCl 0.1 mg tablet 0.2 mg (2 x 0.1 mg) PO TID 30 days 01/13/25 #180 tabs folic acid 1 mg tablet 1 mg PO DAILY 30 days #30 ta bs 01/13/25 hydroxyzine pamoate 25 mg capsule 50 mg (2 x 25 mg) PO Q6H PRN 01/13/25 Anxiety 30 days #120 caps metoprolol tartrate 25 mg tablet 25 mg PO BID@0900,210 0 30 days #30 01/13/25 tabs mirtazapine 15 mg tablet 15 mg PO BEDTIME 30 days #30 tabs 01/13/25 propranolol 20 mg tablet 10 mg (1/2 x 20 mg) PO BID P RN 01/13/25 Agitation 30 days #15 tabs thiamine mononitrate (vit B1) 100 100 mg PO DAILY 30 d ays #30 tabs 01/13/25 mg tablet (Vitamin B-1 (mononitrate)) chlordiazepoxide HCl 25 mg capsule See Rx Instructions .Route 04/16/25 .COMPLEX #27 caps Allergies Allergy/AdvReac Type Severity Reaction Status Date / Time azithromycin Allergy ADR-Chest Verified 12/24/24 20:24 Pain Review of Systems 2 Const: Denies: fever(s) or chills Eyes: Denies: change in vision or blurry vision Card: Denies: chest pain, palpitations, irregular heart rhythm, lightheadedness, syncope or dyspnea on exertion Resp: Denies: dyspnea, productive cough or pain on inspiration GI: Denies: abdominal pain, nausea, vomiting, heartburn or diarrhea : Denies: difficulty urinating or dysuria Musc: Denies: neck pain, back pain or joint pain Skin/Breast: Denies: rash Psych: Reports: anxiety; Denies: paranoia, visual hallucinations, auditory hallucinations, suicidal ideation or homicidal ideation PFSH ED 2 PFSH: Medical History Alcohol withdrawal seizure Traumatic brain injury Alcohol abuse Alcohol withdrawal seizure with complication Hypertension Alcoholism Social History Smoking and tobacco/nicotine status: former use of tobacco/nicotine Alcohol intake: current Substance/Drug Use: unknown Caregiver/support person: Yes Household members: family Housing: House Physical Exam 2 Const: COMMON NORMALS: no acute distress, average body habitus, patient oriented x3, healthy appearing, alert and well nourished GENERAL APPEARANCE: cooperative OTHER: acutely intoxicated HENMT: COMMON NORMALS: normocephalic and atraumatic HEAD & SCALP: n ormocephalic and atraumatic Neck/C-Spine: COMMON NORMALS: full ROM, no lymphadenopathy, supple and no meningeal signs Chest: COMMONS NORMALS: normal inspection of the chest Resp: COMMON NORMALS: normal respiratory effort and clear to auscultation bilaterally AUSCULTATION: clear to auscultation bilaterally Cardio: COMMON NORMALS: regular rhythm RATE: tachycardic RHYTHM: regular rhythm GI: COMMON NORMALS: Normal to inspection, nondistended, normoactive bowel sounds present, Soft to palpation, non-tender, No hepatosplenomegaly present and no masses PALPATION: Yes Soft to palpation and Yes No hepatosplenomegaly present : COMMON NORMALS: Yes no CVA tenderness BLADDER/KIDNEY EXAM: Yes no CVA tenderness Back/Pelvis: COMMON NORMALS: no CVA tenderness and thoracic and lumbar spine normal to inspection Extremity: COMMON NORMALS: normal to inspection Neuro: PRABHAKAR COMA SCALE: document GCS findings [place] coma scale eye opening: Spontaneous [place] coma scale verbal response: Orientated Prabhakar coma scale motor response: Obey commands [place] coma scale total score: 15 COMMON NORMALS: patient oriented x3, moves all extremities, no focal motor deficits and no sensory deficits noted SENSORIUM/ORIENTATION: Yes alert MENINGEAL SIGNS: Yes no meningeal signs Psych: COMMON NORMALS: Normal thought process present APPEARANCE: Yes grossly normal ATTITUDE: Yes calm ACTIVITY/MOTOR BEHAVIOR: Yes appropriate eye contact THOUGHT PROCESS: Normal thought process present THOUGHT CONTENT: Yes Normal thought content present ATTENTION/CONCENTRATION: Yes attention grossly intact and Yes concentration grossly intact M VANESSA/COGNITION: Yes memory grossly intact and Yes cognition grossly intact I NSIGHT: Fair insight present (Psych) JUDGEMENT: Fair judgement present (Psych) Skin: COMMON NORMALS: no rashes or lesions noted GENERAL SKIN EXAM: no rashes or lesions noted Course 2 Vital Signs: Vital signs: Vital Signs Pulse Rate 118 H 04/16/25 12:25 Respiratory Rate 18 04/16/25 12:25 Blood Pressure 136/71 04/16/25 12:25 Pulse Oximetry 93 04/16/25 12:25 Oxygen Delivery Me thod Room Air 04/16/25 12:25 MDM - Alcohol Medical Decision Making Patient wants to go home. He is calling for a ride. He is requesting Librium as he wants to quit drinking. This will be provided. Patient is stable for discharge. Chronic elevations to LFTs from his alcohol abuse. Medical Records I reviewed the patient's medical records. Lab Data I reviewed the patient's lab results. 04/16/25 13:05 04/16/25 13:05 Laboratory Results WBC 10.03 10^3/uL (3.29-11.43) 04/16/25 13:05 RBC 5.26 10^6/uL (3.85-5.65) 04/16/25 13:05 Hgb 16.20 g/dL (11.27-16.99) 04/16/25 13:05 Hct 45.5 % (37-53) 04/16/25 13:05 MCV 86.5 fl (82-101) 04/16/25 13:05 MCH 30.8 pg (27-33) 04/16/25 13:05 MCHC 35.6 g/dL (30-55) 04/16/25 13:05 RDW 11.9 % (12.1-15.1) L 04/16/25 13:05 Plt Count 271 10^3/cmm (157-399) 04/16/25 13:05 MPV 8.5 fL (7.4-10.4) 04/16/25 13:05 Neut % (Auto) 64.5 % 04/16/25 13:05 Lymph % (Auto) 25.3 % 04/16/25 13:05 [place] % (Auto) 9.0 % 04/16/25 13:05 Eos % (Auto) 0.4 % 04/16/25 13:05 Baso % (Auto) 0.6 % 04/16/25 13:05 Neut # (Auto) 6.47 10^3/uL (1.8-7.7) 04/16/25 13:05 Lymph # (Auto) 2.5 10^3/uL (0.8-4.8) 04/16/25 13:05 [place] # (Auto) 0.9 10^3/uL (0.2-0.9) 04/16/25 13:05 Eos # (Auto) 0.0 10^3/uL (0.0-0.8) 04/16/25 13:05 Baso # (Auto) 0.1 10^3/uL (0.0-0.1) 04/16/25 13:05 Nucleated RBC % (auto) 0 % 04/16/25 13:05 Nucleated RBCs # 0.0 /100WBC 04/16/25 13:05 Sodium 134 mmol/L (136-145) L 04/16/25 13:05 Potassium 4.1 mmol/L (3.5-5.1) 04/16/25 13:05 Chloride 91 mmol/L (98-107) L 04/16/25 13:05 Carbon Dioxide 24 mmol/L (22-29) 04/16/25 13:05 Anion Gap 23.1 (5-19) H 04/16/25 13:05 BUN 15 mg/dL (6-20) 04/16/25 13:05 Creatinine 0.7 mg/dL (0.7-1.2) 04/16/25 13:05 GFR Calculation 126.9 mL/min (90-130) 04/16/25 13:05 Glucose 115 mg/dL (65-115) 04/16/25 13:05 Calculated Osmolality 280 mOsm/kg (285-295) L 04/16/25 13:05 Calcium 8.4 mg/dL (8.5-10.5) L 04/16/25 13:05 Total Bilirubin 1.4 mg/dL (0.15-1.2) H 04/16/25 13:05 AST 94 U/L (0-40) H 04/16/25 13:05 ALT 171 U/L (0-41) H 04/16/25 13:05 Alkaline Phosphatase 90 U/L (40-130) 04/16/25 13:05 Total Protein 7.5 g/dL (6.6-8.7) 04/16/25 13:05 Albumin 4.4 g/dL (3.5-5.2) 04/16/25 13:05 Globulin 3.1 g/dL (1.3-4.6) 04/16/25 13:05 Salicylates < 0.3 mg/dL (3-10) L 04/16/25 13:05 Urine Opiates Screen Negative ng/mL (Negative) 04/16/25 13:43 Acetaminophen < 5.0 ug/mL (10-30) L 04/16/25 13:05 Ur Barbiturates Screen Negative ng/mL (Negative) 04/16/25 13:43 Ur Phencyclidine Scrn Negative ng/mL (Negative) 04/16/25 13:43 Ur Amphetamines Screen Negative ng/mL (Negative) 04/16/25 13:43 U Benzodiazepines Scrn Negative ng/mL (Negative) 04/16/25 13:43 Urine Cocaine Screen Negative ng/mL (Negative) 04/16/25 13:43 U Marijuana (THC) Screen Positive ng/mL (Negative) H 04/16/25 13:43 Ethyl Alcohol 332 mg/dL (0-10) H* 04/16/25 13:05 No radiology studies performed this visit Discharge Plan Discharge Patient Disposition: Home Clinical Impression: Alcohol abuse Alcohol intoxication Qualifiers: Complication of substance-induced condition: uncomplicated Qualified Code(s): F 10.380 - Alcohol use, unspecified with intoxication, uncomplicated Condition: Stable Prescriptions: New chlordiazepoxide HCl 25 mg capsule See Rx Instructions .ROUTE .COMPLEX Qty: 27 0RF Rx Instructions: Take 4 tabs q 6 hours on day 1. Take 2 tabs q 8 hours on day 2. Take 2 tabs q 12 hours on day 3. Take one tab daily on day 4. No Action thiamine mononitrate (vit B1) [Vitamin B-1 (mononitrate)] 100 mg Tablet 100 mg PO DAILY 30 Days Qty: 30 1RF mirtazapine 15 mg Tablet 15 mg PO BEDTIME 30 Days Qty: 30 1RF propranolol 20 mg Tablet 10 mg PO BID PRN (Reason: Agitation) 30 Days Qty: 15 1RF metoprolol tartrate 25 mg Tablet 25 mg PO BID@0900,2100 30 Days Qty: 30 1RF hydroxyzine pamoate 25 mg Capsule 50 mg PO Q6H PRN (Reason: Anxiety) 30 Days Qty: 120 1RF folic acid 1 mg Tablet 1 mg PO DAILY 30 Days Qty: 30 1RF clonidine HCl 0.1 mg Tablet 0.2 mg PO TID 30 Days Qty: 180 1RF Discharge Orders: Discharge ED (Routine); Ordered 04/16/25 Ordered By: April Calles Patient Instructions: Alcohol Intoxication (DC), Abuse of Alcohol (ED), Abuse of Alcohol (DC), Patient Portal & [facility] Instructions Activity Restrictions/Additional Instructions: As we discussed, you were requesting discharge home. We will put you on a Librium over the next several days to help with alcohol detox symptoms. DO NOT DRINK WHILE TAKING THIS MEDICATION. You need to contact Oswaldo Ovalles about getting into a long-term detox facility to help with your chronic alcohol abuse. Print Language: Arabic Coding Level of Care Code ED Pull Tab Dealer for Avi Gutierrez
[2025-04-16] MEDS: thiamine 100 mg/mL 2mL SDV IVP (13:08)
[2025-04-16] MEDS: multivitamin therapeutic Tablet 1 TAB PO (13:08)
[2025-04-16 13:28] LABS: Hematocrit 45.5 % (37-53); Hemoglobin 16.20 g/dL (11.27-16.99); Mean Corpuscular HGB Conc 35.6 g/dL (30-55); Mean Corpuscular Hemoglobin 30.8 pg (27-33); Mean Corpuscular Volume 86.5 fl (82-101); Nucleated Red Blood Cells % 0 %; Platelet Count 271 10^3/cmm (157-399); Red Blood Count 5.26 10^6/uL (3.85-5.65); White Blood Count 10.03 10^3/uL (3.29-11.43)
[2025-04-16 13:40] LABS: Alanine Aminotransferase 171 U/L (0-41); Albumin Level 4.4 g/dL (3.5-5.2); Alkaline Phosphatase 90 U/L (40-130); Anion Gap 23.1 (5-19); Aspartate Amino Transferase 94 U/L (0-40); Blood Urea Nitrogen 15 mg/dL (6-20); Calcium 8.4 mg/dL (8.5-10.5); Carbon Dioxide 24 mmol/L (22-29); Chloride 91 mmol/L (98-107); Globulin 3.1 g/dL (1.3-4.6); Glucose 115 mg/dL (65-115); Osmolality Calculated 280 mOsm/kg (285-295); Potassium 4.1 mmol/L (3.5-5.1); Sodium 134 mmol/L (136-145); Total Protein 7.5 g/dL (6.6-8.7)
[2025-04-16 13:42] LABS: Acetaminophen < 5.0 ug/mL (10-30); Salicylate < 0.3 mg/dL (3-10)
[2025-04-16 13:43] LABS: Alcohol Level 332 mg/dL (0-10)
[2025-04-16 14:03] LABS: PCP Screen Urine Negative (Negative)
--- NOTE | 2025-04-16 14:33 | PC.PHAR ---
Last discharged 01/13/25. Medications delivered to bedside. Pharmacy states they were never refilled again.
[2025-04-16] MEDS: LORazepam 1 MG/0.5 ML injection IVP (14:48)
[2025-04-16 15:00] VITALS: BP 148/88; PULSE 135; O2SAT 99
== END 2025-04-16 15:01 | disposition home or self-care (01) ==
PROVIDERS: Emergency Provider Physician Assistant
DX: F10.129 Alcohol abuse with intoxication, unspecified (principal); Y90.8 Blood alcohol level of 240 mg/100 ml or more; Z87.891 Personal history of nicotine dependence; I10 Essential (primary) hypertension
CPT/HCPCS: 36415; 80053; 80306; 80307; 85025; 96361; 96374; 96375; 99284; J2060; J3411; J7030; J9999